=== PATIENT | male | born 1970 | race African-American/Black ===

== ENCOUNTER 2019-08-28 03:53 | Emergency (ER) | payer OTHER ==
[~2019-08-28] VITALS: Ht 182.9 cm; Wt 95.3 kg
[2019-08-28 04:10] VITALS: BP 156/79
--- NOTE | 2019-08-28 04:22 | NUR ---
PT CALLED FOR ROOM ASSIGNMEN, PT NOT IN WAITING ROOM. PT ELOPED.
== END 2019-08-28 04:22 | disposition left against medical advice (07) ==
LOC: ER 03:54
DX: Z53.21 Procedure and treatment not carried out due to patient leaving prior to being seen by health care provider (principal); R10.9 Unspecified abdominal pain

== ENCOUNTER 2019-09-03 01:30 | Emergency (ER) | payer OTHER ==
[~2019-09-03] VITALS: Ht 182.9 cm; Wt 94.8 kg
--- NOTE | 2019-09-03 01:43 | NUR ---
PT BIB EMS C/O ETOH, ABDOMINAL PAIN WITH NAUSEA TO ER BED 13 AWAITING MED EVAL
[2019-09-03] MEDS ORDERED: ONDANSETRON HCL/PF 4 MG/2 ML VIAL ONE (01:53)
[2019-09-03] MEDS ORDERED: ONDANSETRON HCL/PF 4 MG/2 ML VIAL IVP ONE (02:00)
--- NOTE | 2019-09-03 02:11 | NUR ---
Patient does not wish to proceed with medical care recommended by ( ). Patient given information related to possible complications, up to and including , which could occur as a result of leaving the hospital at this time. Patient verbalizes understanding of risks involved due to leaving against medical advice. Patient has signed AMA form.
[2019-09-03 02:12] VITALS: BP 142/86
--- NOTE | 2019-09-03 02:12 | NUR ---
PT AWAKE ALERT OERIENTED X4, AMBULATORY, AMA FORM SIGNED.
== END 2019-09-03 02:13 | disposition home or self-care (01) ==
LOC: ER 01:32
DX: R10.84 Generalized abdominal pain (principal); F32.9 Major depressive disorder, single episode, unspecified; F20.9 Schizophrenia, unspecified; F17.200 Nicotine dependence, unspecified, uncomplicated
CPT/HCPCS: J2405

== ENCOUNTER 2019-09-04 01:15 | Emergency (ER) | payer OTHER ==
[~2019-09-04] VITALS: Ht 182.9 cm; Wt 94.8 kg
[2019-09-04 01:20] VITALS: BP 135/72
--- NOTE | 2019-09-04 01:20 | NUR ---
PT MARTA FROM STREET C/O GENERALIZED ABDOMINAL PAIN X5 DAYS AGO. NAD NOTED. RESP EVEN AND UNLABORED. PT PROVIDED WITH URINAL. UNABLE TO URINATE AT THIS TIME. WILL CONTINUE TO MONITOR.
--- NOTE | 2019-09-04 01:50 | NUR ---
PT REFUSING ALL TREATMENT. MD AWARE.
--- NOTE | 2019-09-04 01:52 | NUR ---
PT REFUSING TO LEAVE. PT REFUSING TO SIGN AMA. CALLED SECURITY TO ESCORT PATIENT.
--- NOTE | 2019-09-04 01:56 | NUR ---
Patient does not wish to proceed with medical care recommended by Dr. ALCALA. Patient given information related to possible complications, up to and including , which could occur as a result of leaving the hospital at this time. Patient verbalizes understanding of risks involved due to leaving against medical advice. Patient has signed AMA form.
[2019-09-04] MEDS ORDERED: IV NS 0.9% 500 ML BAG IV ONE (02:00)
[2019-09-04] MEDS ORDERED: ONDANSETRON HCL/PF 4 MG/2 ML VIAL IVP ONE (02:00)
[2019-09-04] MEDS ORDERED: MORPHINE SULFATE INJ 2 MG/ML DISP.SYRIN IV ONE (02:00)
== END 2019-09-04 02:20 | disposition left against medical advice (07) ==
LOC: ER 01:16
DX: R10.84 Generalized abdominal pain (principal); F17.200 Nicotine dependence, unspecified, uncomplicated

== ENCOUNTER 2019-09-05 01:47 | Emergency (ER) | payer OTHER ==
[~2019-09-05] VITALS: Ht 185.4 cm; Wt 90.7 kg
--- NOTE | 2019-09-05 01:57 | NUR ---
PT [id number] FROM STORE C/C +SI, +PLAN TO RUN INTO TRAFFIC, -HI, VOLUNTARY, C/O ABD PAIN, +N/-V. PT BELONGINGS SEIZED AND PUT IN LOCKER WAY FROM PATIENT. SITTER AT BEDSIDE. SECURITY CALLED TO WAND PATIENT. PT IN HOSPITAL GOWN IN BED 13.
--- NOTE | 2019-09-05 02:00 | NUR ---
URINE COLLECTED AND SENT TO LAB
--- NOTE | 2019-09-05 02:09 | NUR ---
SECURITY AT BEDSIDE TO WAND PATIENT
--- NOTE | 2019-09-05 02:16 | NUR ---
PHLEB AT BEDSIDE FOR LAB DRAW
[2019-09-05 02:27] LABS: APPEARANCE,URINE Clear (CLEAR); BILIRUBIN,URINE Negative (NEGATIVE); BLOOD, URINE Negative Ery/uL (NEGATIVE); COLOR,URINE Yellow (YELLOW); KETONES,URINE Negative (NEGATIVE); LEUKOCYTE ESTERASE ,URINE Negative (NEGATIVE); NITRITE, URINE Negative (NEGATIVE); PROTEIN,URINE Negative (NEGATIVE); UGLUCOSE Negative (NEGATIVE); UROBILINOGEN,URINE 0.2 EU/dL (0.2)
[2019-09-05] MEDS ORDERED: OLANZAPINE 5 MG TABLET PO ONE (02:30)
[2019-09-05 02:58] LABS: ALBUMIN 3.9 g/dL (3.4-5.0); BILIRUBIN,DIRECT 0.1 mg/dL (0.0-0.2); BILIRUBIN,TOTAL 0.2 mg/dL (0.2-1.0); CALCIUM, SERUM 8.4 mg/dL (8.5-10.1); CREATININE 0.9 mg/dL (0.6-1.3); POTASSIUM 3.6 mmol/L (3.5-5.1); SALICYLATE 2.8 mg/dL (2.8-20.0); TOTAL PROTEIN, SERUM 7.5 g/dL (6.4-8.2)
[2019-09-05 03:00] LABS: BASOPHILS % (AUTO) 0.5 % (0.0-2.0); EOSINOPHILS % (AUTO) 1.5 % (0.0-6.0); HEMATOCRIT 41 % (39-51); HEMOGLOBIN 13.4 g/dL (13.5-17.5); LYMPHOCYTES % (AUTO) 31.9 % (20.0-44.0); MEAN CORPUSCULAR HGB CONC 33 g/dl (31.0-36.0); MEAN CORPUSCULAR VOLUME 96 fL (80-96); MONOCYTES # (AUTO) 0.7 /CMM (0.1-1.30); MONOCYTES % (AUTO) 10.4 % (2.0-12.0); NEUTROPHILS # (AUTO) 3.6 /CMM (1.8-8.9); NEUTROPHILS % (AUTO) 55.7 % (43.0-81.0); PLATELET COUNT (AUTO) 209 /CMM (150-450); RED BLOOD CELL COUNT(AUTO) 4.29 MIL/uL (4.5-6.0); WHITE BLOOD COUNT (AUTO) 6.4 K/uL (4.3-11.0)
[2019-09-05] MEDS ORDERED: OLANZAPINE 5 MG TABLET ONE (03:06)
[2019-09-05] MEDS ORDERED: HYDROCORTISONE 1% CREAM 28.35 GM TUBE TP ONE (05:17)
[2019-09-05] MEDS: HYDROCORTISONE 2.5% CREAM 28.4 GM TUBE TP SCH ×3 (05:20→17:00)
--- NOTE | 2019-09-05 07:10 | NUR ---
PATIENT ASLEEP BUT AROUSABLE VITALS TAKEN AND FILED NO AGITATION @ THIS TIME SITTER @ BEDSIDE CONTINUE TO MONITOR
--- NOTE | 2019-09-05 13:00 | NUR ---
PATIENT AWAKE ALERT NO AGITATION DENIES DISCOMFORT REQUESTING FOR FOOD
--- NOTE | 2019-09-05 14:04 | NUR ---
PATIENT AWAKE ALERT DENIES SI @ THIS TIME LUNCH TRAY SAFE TRAY ,NOTED HE DOES FOLLOW COMMAND AND MAKE HIS KNOWN NEEDS ,SITTER REMAIN STANDBY
--- NOTE | 2019-09-05 14:05 | NUR ---
BLOOD ALCOHOL LAB DRAW DONE
--- NOTE | 2019-09-05 15:09 | NUR ---
PROVIDED SNACK ORAL FLUIDS
--- NOTE | 2019-09-05 15:50 | NUR ---
ANGELICA IGLESIAS AT BEDSIDE FOR EVAL
--- NOTE | 2019-09-05 16:00 | NUR ---
Social service consult requested by Dr. Mack for homelessness and suicidal ideations with a plan to run into traffic. Pt. is a 49 year old male who brought in by ambulance from the store with complaints of suicidal ideation. MARCIA met with the pt. bedside. SW is familiar with the pt. from several ER visits for similar complaints. Upon arrival, pt. has alcohol level of over 350. MARCIA met with pt. bedside. Pt. is alert and oriented x 4. Pt. appears dirty and disheveled. Pt. is cooperative with SW. Pt. states he is homeless. Pt. admits to heavy alcohol consumption daily and drank a couple of bottles of gin yesterday. When asked how much he drinks daily, pt. stated, " it depends." Pt. denies drug use. Pt. smokes cigarettes daily. When asked how many per day, pt. states, " I don't know." Pt. states he is suicidal with a plan to run into traffic. Pt. is requesting voluntary psychiatric admission to [facility]. MARCIA contacted Obdulio at [facility] who informed they will have a bed for the pt. Obdulio took pt's information. MARCIA informed Obdulio, clinicals will be faxed in a few hours when pt's alcohol level is appropriate for psychiatric admission. MARCIA updated MONICA Zamora and Dr. Mack with aforementioned information.
--- NOTE | 2019-09-05 17:28 | NUR ---
[facility] CALLED SAYING THAT THE PATIENT CAN BE ADMITTED AFTER ALCOHOL SERUM LEVEL WILL BE <100. DR. BRIGGS SAID THAT THE PATIENT SHOULD HAVE AN ALCOHOL SERUM LEVEL AFTER 1830.
--- NOTE | 2019-09-05 17:29 | NUR ---
FAX INFORMATION TO [facility] [phone]
[2019-09-05] MEDS ORDERED: ACETAMINOPHEN ES 500 MG TABLET ONE (18:56)
[2019-09-05] MEDS ORDERED: ACETAMINOPHEN ES 500 MG TABLET PO ONE (19:00)
--- NOTE | 2019-09-05 19:25 | NUR ---
Assumed care of pt. pt sitting up in bed w/ resp even & unlabored, watching TV w/ no acute distress noted. Bed low to ground w/ siderails up for safety. Will continue to monitor. derian Barron remains at bedside.
--- NOTE | 2019-09-05 20:16 | NUR ---
FAX INFORMATION TO [facility] [phone]
--- NOTE | 2019-09-05 22:05 | NUR ---
PT REQUESTING PAIN MEDICATION FOR TOOTHACHE. DR. BRIGGS NOTIFIED.
[2019-09-05] MEDS ORDERED: IBUPROFEN 600 MG TABLET PO ONE ×2 (22:09→22:30)
--- NOTE | 2019-09-05 22:30 | NUR ---
PT MEDICATED ORDERED FOR PT REPORT HAVING RT UPPER TOOTHACHE. JUICE AND CRACKERS PROVIDED. PT SITTING UP IN BED EATING W/ NO ASPIRATION OF FOOD NOTED. WILL CONTINUE TO MONITOR.
[2019-09-05] MEDS ORDERED: LET SOLN TOPICAL 8 ML UDC TP ONE ×2 (23:11→23:30)
--- NOTE | 2019-09-05 23:11 | NUR ---
S/W ROEL AT [facility] INTAKE REFAX CLINICAL INFO ATT: [facility] [phone].
--- NOTE | 2019-09-05 23:33 | NUR ---
Pt calm and cooperative at this time w/ HOB elevated, resp even & unlabored, repositioning self in bed w/ no acute distress noted. Bed low to ground w/ siderails up for safety. Will continue to monitor. Awaiting placement at [facility].
[2019-09-06] MEDS ORDERED: LORAZEPAM INJ 2 MG/ML VIAL IV ONE
--- NOTE | 2019-09-06 00:15 | NUR ---
CEDRICK SEVILLA, INTAKE AT [facility], REPORT TO [phone] JASSO/MONTSERRAT AT [facility].
--- NOTE | 2019-09-06 00:20 | NUR ---
[facility] TRANSPORT ETA 90MINS-2HRS RESERVATION# [id number].
--- NOTE | 2019-09-06 00:25 | NUR ---
Pt given sandwich and juice, sitting up in bed eating w/ no aspiration of food noted.
--- NOTE | 2019-09-06 00:27 | NUR ---
REPORT GIVEN TO DARIEL HERNÁNDEZ AT [facility] FOR [facility].
--- NOTE | 2019-09-06 01:11 | NUR ---
[facility] CALLED FOR UPDATE ON ETA. S AMBULNZ [id number].
[2019-09-06 01:50] VITALS: BP 152/87
--- NOTE | 2019-09-06 02:16 | NUR ---
REPORT GIVEN TO ANSELMO HAY W/ AMBULNZ UNIT#[id number] FOR MARSHA, PT TRANSFER VIA BLS AMBULANCE IN STABLE CONDITION, RESP EVEN & UNLABORED, NO ACUTE DISTRESS NOTED.
== END 2019-09-06 02:28 ==
LOC: ER 01:49
DX: R45.851 Suicidal ideations (principal); R41.82 Altered mental status, unspecified; F10.10 Alcohol abuse, uncomplicated; F17.200 Nicotine dependence, unspecified, uncomplicated; I10 Essential (primary) hypertension; R45.1 Restlessness and agitation; F32.9 Major depressive disorder, single episode, unspecified; Y90.0 Blood alcohol level of less than 20 mg/100 ml; Z04.6 Encounter for general psychiatric examination, requested by authority
CPT/HCPCS: 36415; 80048; 80076; 80305; 80307 ×3; 80329; 81001; 85025; 99285; G0480; 81000-TC

== ENCOUNTER 2019-09-18 01:39 | Emergency (ER) | payer OTHER ==
[~2019-09-18] VITALS: Ht 182.9 cm; Wt 94.8 kg
--- NOTE | 2019-09-18 02:50 | NUR ---
PT BIBSELF C/C GENERALIZED ABDOMINAL PAIN AND VOMITING STARTED LAST NIGHT. PT AOX3. PT INDUCING VOMITTING. NAD NOTED. RESP EVEN AND UNLABORED. PT ON MONITOR IN BED 15. WILL CONTINUE TO MONITOR.
[2019-09-18] MEDS ORDERED: ONDANSETRON HCL/PF 4 MG/2 ML VIAL ONE (03:16)
[2019-09-18] MEDS ORDERED: FAMOTIDINE/PF INJ 20 MG/2 ML VIAL IV ONE ×2 (03:16→03:30)
[2019-09-18] MEDS ORDERED: ONDANSETRON HCL/PF 4 MG/2 ML VIAL IVP ONE (03:30)
[2019-09-18] MEDS ORDERED: IV NS 0.9% 1,000 ML BAG IV ONE (03:30)
--- NOTE | 2019-09-18 03:40 | NUR ---
PHLEB AT BEDSIDE FOR BLOOD DRAW
[2019-09-18 03:51] LABS: BASOPHILS # (AUTO) 0.1 /CMM (0.0-0.2); BASOPHILS % (AUTO) 1.6 % (0.0-2.0); EOSINOPHILS % (AUTO) 1.3 % (0.0-6.0); HEMATOCRIT 42 % (39-51); HEMOGLOBIN 13.8 g/dL (13.5-17.5); LYMPHOCYTES # (AUTO) 1.4 /CMM (0.8-4.8); LYMPHOCYTES % (AUTO) 30.8 % (20.0-44.0); MEAN CORPUSCULAR HGB CONC 33 g/dl (31.0-36.0); MEAN CORPUSCULAR VOLUME 95 fL (80-96); MONOCYTES # (AUTO) 0.3 /CMM (0.1-1.30); MONOCYTES % (AUTO) 6.8 % (2.0-12.0); NEUTROPHILS # (AUTO) 2.7 /CMM (1.8-8.9); NEUTROPHILS % (AUTO) 59.5 % (43.0-81.0); PLATELET COUNT (AUTO) 309 /CMM (150-450); RED BLOOD CELL COUNT(AUTO) 4.39 MIL/uL (4.5-6.0); WHITE BLOOD COUNT (AUTO) 4.5 K/uL (4.3-11.0)
[2019-09-18 04:00] LABS: MAGNESIUM 1.9 mg/dL (1.8-2.4)
[2019-09-18 04:02] LABS: ALANINE AMINOTRANSFERASE 42 U/L (12-78); ALBUMIN 4.1 g/dL (3.4-5.0); ALKALINE PHOSPHATASE 100 U/L (46-116); ASPARTATE AMINOTRANSFERASE 38 U/L (15-37); BILIRUBIN,DIRECT 0.1 mg/dL (0.0-0.2); BILIRUBIN,TOTAL 0.6 mg/dL (0.2-1.0); CALCIUM, SERUM 8.7 mg/dL (8.5-10.1); CARBON DIOXIDE 26 mmol/L (21-32); CHLORIDE 107 mmol/L (98-107); CREATININE 0.9 mg/dL (0.6-1.3); GLUCOSE 87 mg/dL (74-106); LIPASE 137 U/L (73-393); POTASSIUM 3.6 mmol/L (3.5-5.1); SODIUM SERUM 146 mmol/L (136-145); TOTAL PROTEIN, SERUM 8.2 g/dL (6.4-8.2); UREA NITROGEN, BLOOD 12 mg/dL (7-18)
--- NOTE | 2019-09-18 05:52 | NUR ---
U/S COMPLETED. PT TOLERATED WELL.
[2019-09-18] MEDS ORDERED: MAG HYDROX/AL HYDROX/SIMETH 30 ML UDC PO ONE ×2 (06:00→10:30)
[2019-09-18] MEDS ORDERED: LIDOCAINE VISCOUS 2% UD 15 ML UDC MM ONE (06:00)
[2019-09-18] MEDS ORDERED: MAG HYDROX/AL HYDROX/SIMETH 30 ML UDC ONE ×2 (06:12→10:16)
[2019-09-18] MEDS ORDERED: LIDOCAINE VISCOUS 2% UD 15 ML UDC ONE (06:12)
--- NOTE | 2019-09-18 06:18 | NUR ---
PT ABLE TO TOLERATE PO MEDS
--- NOTE | 2019-09-18 08:12 | NUR ---
patient verbalized that he is suicidal plan to run into traffic. Informed MD and made aware. Zoraida social sciences department chair on site for eval.
--- NOTE | 2019-09-18 08:22 | NUR ---
Social service consult requested by Dr. Mack for suicidal ideation with a plan. Pt. is a 49 year old male who came to [facility] complaining of nausea. MARCIA met with the pt. bedside. MARCIA is very familiar with the pt. from numerous ED visits, the last visit was on 09/04/19 for suicidal ideations with a plan. Pt. is alert and oriented x 4. Pt. appears dirty and disheveled. Pt. is an alcoholic and comes to ED with alcohol withdrawal symptoms. Pt. informed SW he is suicidal with a plan to run into traffic. Pt. last voluntary psychiatric hospitalization was on 09/05/19 at [facility]. Pt. is homeless. Pt. admits to heavy alcohol consumption daily and drinks couple of bottles of gin. MARCIA encouraged pt. to go to an alcohol treatment program and offerd him resources, however pt. declined. Pt. is seeking voluntary psychiatric admission to [facility]. MARCIA contacted Obdulio at [facility] who informed MARCIA they will have a bed for the pt. Obd[facility]io took pt's information. MARCIA faxed clinical referral packet to .
[2019-09-18] MEDS ORDERED: ONDANSETRON 4 MG TAB.RAPDIS ONE (10:17)
--- NOTE | 2019-09-18 10:24 | NUR ---
MARCIA received a call from Obdulio at [facility] confirming they will have a bed for the pt. at [place] or [place] location, they are awaiting discharges at this time. MARCIA updated DARIEL Magdaleno in ED.
[2019-09-18] MEDS ORDERED: ONDANSETRON 4 MG TAB.RAPDIS PO ONE (10:30)
[2019-09-18] MEDS ORDERED: METOCLOPRAMIDE HCL 10 MG/2 ML VIAL IM ONE (11:00)
[2019-09-18] MEDS ORDERED: HALOPERIDOL LACTATE INJ 5 MG/ML VIAL ONE ×2 (12:22→12:36)
[2019-09-18] MEDS ORDERED: HALOPERIDOL LACTATE INJ 5 MG/ML VIAL IM ONE (12:30)
--- NOTE | 2019-09-18 13:51 | NUR ---
MARCIA received a call from Vimal in intake at [facility] requesting an updated alcohol level since the previous level was too high. . MARCIA printed out the recent alcohol level and faxed it to .
--- NOTE | 2019-09-18 13:56 | NUR ---
FAXED NEW TOX LABS TO [facility]
[2019-09-18 13:57] VITALS: BP 127/87
--- NOTE | 2019-09-18 14:21 | NUR ---
MARCIA received a call from Vimal in intake. Pt. has been accepted under Dr. Linder/Dr. Aden at [facility]. Report needs to be called in to . MARCIA updated MONICA Wooten in ED.
--- NOTE | 2019-09-18 14:37 | NUR ---
CALLED [id number] FOR TRANSPORT ETA 0060 REF #[id number]
--- NOTE | 2019-09-18 15:28 | NUR ---
Patient picked up by ems in stable condition. Written and verbal after care instructions given. Patient verbalizes understanding of instruction.
== END 2019-09-18 15:32 ==
LOC: ER 01:40
DX: R10.10 Upper abdominal pain, unspecified (principal); R11.2 Nausea with vomiting, unspecified; F10.10 Alcohol abuse, uncomplicated; R94.31 Abnormal electrocardiogram [ECG] [EKG]; I45.10 Unspecified right bundle-branch block; I44.4 Left anterior fascicular block; F17.200 Nicotine dependence, unspecified, uncomplicated; Y90.6 Blood alcohol level of 120-199 mg/100 ml
CPT/HCPCS: 36415; 71045; 76705; 80048; 80076; 80307 ×2; 83690; 83735; 84484 ×2; 85025; 93005 ×2; 96361; 96372 ×2; 96374; 96375; 99285; J1630; J2405; J3490; J7030; Q0162; G0480

== ENCOUNTER 2019-09-18 19:17 | Emergency (ER) | payer OTHER ==
[~2019-09-18] VITALS: Ht 184.2 cm; Wt 94.8 kg
[2019-09-18] MEDS ORDERED: ONDANSETRON HCL/PF 4 MG/2 ML VIAL ONE (19:49)
[2019-09-18] MEDS ORDERED: MORPHINE SULFATE INJ 4 MG/ML DISP.SYRIN ONE (19:49)
[2019-09-18] MEDS ORDERED: IV NS 0.9% 1,000 ML BAG IV ONE (20:00)
[2019-09-18] MEDS ORDERED: MORPHINE SULFATE INJ 2 MG/ML DISP.SYRIN IV ONE (20:00)
[2019-09-18] MEDS ORDERED: ONDANSETRON HCL/PF 4 MG/2 ML VIAL IVP ONE (20:00)
--- NOTE | 2019-09-18 20:00 | NUR ---
GLORIA FROM [facility]. TO ER BED 11. AAOX4. NO RESP DISTRESS NOTED, BREATHING EVEN AND UNLABORED. C/O NAUSEA, VOMMITING, GEN ABDOMINAL PAIN AND CP. PT WAS HERE LAST NIGHT AT THE ER FOR ADOMINAL PAIN AND NAUSEA. PT IS REPORTING THAT THE ABDOMINAL PAIN DID NOT GO AWAY, STILL NAUSEOUS AND VOMMITING BUT NO EPISODE WHILE IN ER. PT REPORTS CP PAIN IN THE MID CHEST AREA SHARP NON RADIATING /10. NO SOB NOTED. KARY MONTALVO AT BEDSIDE FOR EVAL. ORDERS RECEIVED, NOTED AND CARRIED OUT. IV LINE OBTAINED ON R FOOT W/ 20G.
[2019-09-18 21:09] LABS: BASOPHILS # (AUTO) 0.1 /CMM (0.0-0.2); BASOPHILS % (AUTO) 1.2 % (0.0-2.0); EOSINOPHILS % (AUTO) 0.4 % (0.0-6.0); HEMATOCRIT 39 % (39-51); HEMOGLOBIN 12.7 g/dL (13.5-17.5); LYMPHOCYTES % (AUTO) 19.8 % (20.0-44.0); MEAN CORPUSCULAR HGB CONC 33 g/dl (31.0-36.0); MEAN CORPUSCULAR VOLUME 96 fL (80-96); MONOCYTES # (AUTO) 0.5 /CMM (0.1-1.30); MONOCYTES % (AUTO) 10.2 % (2.0-12.0); NEUTROPHILS # (AUTO) 3.5 /CMM (1.8-8.9); NEUTROPHILS % (AUTO) 68.4 % (43.0-81.0); PLATELET COUNT (AUTO) 256 /CMM (150-450); RED BLOOD CELL COUNT(AUTO) 4.04 MIL/uL (4.5-6.0); WHITE BLOOD COUNT (AUTO) 5.1 K/uL (4.3-11.0)
--- NOTE | 2019-09-18 21:18 | NUR ---
URINE SENT TO LAB
[2019-09-18 21:26] LABS: CALCIUM, SERUM 8.3 mg/dL (8.5-10.1); CARBON DIOXIDE 27 mmol/L (21-32); CHLORIDE 104 mmol/L (98-107); CREATININE 0.8 mg/dL (0.6-1.3); GLUCOSE 82 mg/dL (74-106); POTASSIUM 3.5 mmol/L (3.5-5.1); SODIUM SERUM 140 mmol/L (136-145); UREA NITROGEN, BLOOD 12 mg/dL (7-18)
[2019-09-18 21:30] LABS: ALANINE AMINOTRANSFERASE 33 U/L (12-78); ALBUMIN 3.7 g/dL (3.4-5.0); ALKALINE PHOSPHATASE 84 U/L (46-116); ASPARTATE AMINOTRANSFERASE 31 U/L (15-37); BILIRUBIN,DIRECT 0.2 mg/dL (0.0-0.2); TOTAL PROTEIN, SERUM 7.2 g/dL (6.4-8.2)
[2019-09-18 21:30] LABS: ALCOHOL, BLOOD 1 mg/dL (0-0); LIPASE 982 U/L (73-393)
[2019-09-18 22:09] LABS: APPEARANCE,URINE SLIGHTLY HAZY (CLEAR); BILIRUBIN,URINE SMALL (NEGATIVE); BLOOD, URINE Negative Ery/uL (NEGATIVE); COLOR,URINE Yellow (YELLOW); KETONES,URINE 15 (NEGATIVE); LEUKOCYTE ESTERASE ,URINE Negative (NEGATIVE); NITRITE, URINE Negative (NEGATIVE); PH,URINE 8.5 (5.0-8.0); PROTEIN,URINE 100 mg/dl (NEGATIVE); UGLUCOSE Negative (NEGATIVE); UROBILINOGEN,URINE 0.2 EU/dL (0.2)
[2019-09-18 22:10] LABS: BACTERIA,URINE Few /HPF (None Seen); SQUAMOUS EPITHELIAL CELL,UR Few /HPF (None Seen)
[2019-09-18 22:11] LABS: RBC,URINE 0-2 /HPF (0-2); WBC,URINE 0-2 /HPF (0-3)
--- NOTE | 2019-09-18 23:09 | NUR ---
ANGEL W/ MILANA, DRAFTER AUTOMOTIVE DESIGN LAYOUT FOR INFORMATION ABOUT PT.
[2019-09-18] MEDS ORDERED: hydrALAZINE HCL IV 20 MG VIAL IV ONE (23:30)
--- NOTE | 2019-09-18 23:48 | NUR ---
SPOKE W/ MILANA AGAIN REGARDING PT TRANSFER. PT GOING TO [facility]STEAD OF [facility]. CONTACT ROHITH NYE [phone]
--- NOTE | 2019-09-18 23:48 | NUR ---
Note domonique in EDM - 09/18/19 at 2349 by FACUNDO ANGEL CORTÉS AGAIN REGARDING PT TRANSFER. PT GOING TO [facility]STE[facility] OF [facility]. CONTACT ROHITH NYE [phone]
[2019-09-18] MEDS ORDERED: hydrALAZINE HCL IV 20 MG VIAL ONE (23:52)
--- NOTE | 2019-09-19 00:40 | NUR ---
TRANSFER INFO: PT WILL GO TO [facility], DIRECT ADMIT TO ROOM 211-A RN FOR REPORT [phone], ETA TO FOLLOW
--- NOTE | 2019-09-19 01:38 | NUR ---
PER BETSY BULL RIVETER, TRANSPORTATION NOT AVAILABLE UNTIL [phone]
--- NOTE | 2019-09-19 06:10 | NUR ---
AMBULNElma CALLED, NEW ETA [phone]
--- NOTE | 2019-09-19 06:38 | NUR ---
REPORT GIVEN TO DARIEL MATHIAS FOR [facility] AT [facility]. BLOOD DONOR UNIT ASSISTANT AT 7:45AM
--- NOTE | 2019-09-19 06:41 | NUR ---
Note domonique in EDM - 09/19/19 at 0653 by KIANA PT HAD A SECOND BM W/ NOTED BLOOD IN THE STOOL. MADE AWARE. CALLED BLOOD BANK FOR BLOOD STATUS, BLOOD WILL BE READY IN 20 MINS
--- NOTE | 2019-09-19 07:50 | NUR ---
Note domonique in EDM - 09/19/19 at 0752 by KIANA PT TRANSPORTED BY RN AND EMT AT BEDSIDE PER [facility] [employer]. NAD NOTED DURING TRANSPORT.
[2019-09-19 09:03] VITALS: BP 165/75
--- NOTE | 2019-09-19 09:04 | NUR ---
PATIENT A/OX4, BREATHING EVEN AND UNLABORED, NO SOB NOTED, DENIES PAIN AT THIS TIME. NEEDS ATTENDED. REPORT GIVEN TO SPORT INTERN. WILL BE TRANSFERRED TO [facility].
== END 2019-09-19 09:06 | disposition short-term general hospital (02) ==
LOC: ER 19:42
DX: R07.89 Other chest pain (principal); R10.84 Generalized abdominal pain; K85.90 Acute pancreatitis without necrosis or infection, unspecified; R11.2 Nausea with vomiting, unspecified; F10.10 Alcohol abuse, uncomplicated; F17.200 Nicotine dependence, unspecified, uncomplicated; I45.10 Unspecified right bundle-branch block; Y90.0 Blood alcohol level of less than 20 mg/100 ml
CPT/HCPCS: 36415; 71045; 74176; 80048; 80076; 80305; 80307; 81001; 83690; 84484; 85025; 93005; 96361; 96374; 96375; 99285; J0360; J2270; J2405; J7030; 81000-TC; 87081-TC; G0480

== ENCOUNTER 2019-09-27 21:33 | Emergency (ER) | payer OTHER ==
[~2019-09-27] VITALS: Ht 190.5 cm; Wt 95.3 kg
--- NOTE | 2019-09-27 21:40 | NUR ---
PT PERIRA FROM [facility] FOR ALCOHOL INTOXICATION, FOUND SLEEPING ON THE FLOOR. STRONG SMELL OF ALCOHOL ON ARRIVAL. PT AWAKE, APPEARS INTOXICATED. INAPPRORIATE RESPONSES, APPEARS DISSHEVELED. VITAL SIGNS STABLE. RESPIRATIONS EVEN AND UNLABORED. SKIN INTACT. NO ACUTE DISTRESS NOTED AT THIS TIME. WILL CONTINUE TO MONITOR
--- NOTE | 2019-09-27 22:15 | NUR ---
MD AT BEDSIDE FOR EVALUATION
--- NOTE | 2019-09-27 22:30 | NUR ---
PT BROUGHT BY RADIOLOGY TO CT [facility]
--- NOTE | 2019-09-28 00:17 | NUR ---
PT RESTING COMFORTABLY IN BED. EASILY AROUSABLE. VITAL SIGNS STABLE. NO ACUTE DISTRESS NOTED AT THIS TIME
--- NOTE | 2019-09-28 03:27 | NUR ---
Patient is resting comfortably in bed with eyes closed. Easily aroused. VSS
--- NOTE | 2019-09-28 05:30 | NUR ---
Patient given written and verbal discharge instructions. Patient verbalizes understanding of instructions. Patient is ambulatory with steady gait. Refuses offer of snf placement. Patient given list of available shelters in surrounding area.Pt ambulatory with a steady gait
[2019-09-28 05:56] VITALS: BP 137/84
== END 2019-09-28 05:56 | disposition home or self-care (01) ==
LOC: ER 21:33
DX: F10.129 Alcohol abuse with intoxication, unspecified (principal); F17.200 Nicotine dependence, unspecified, uncomplicated; Y90.9 Presence of alcohol in blood, level not specified
CPT/HCPCS: 70450-TC

== ENCOUNTER 2019-10-02 10:30 | Emergency (ER) | payer OTHER ==
[~2019-10-02] VITALS: Ht 185.4 cm; Wt 100.7 kg
--- NOTE | 2019-10-02 10:32 | NUR ---
PT BIBRA39, HOMELESS, PICKED UP ON THE STREET, C/O NAUSEA/VOMITING AND DEPRESSION, +SI, "I WANT TO RUN INTO TRAFFIC" PT IS AAOX3, NOT IN RESPIRATORY DISTRESS, HOOKED TO MONITOR, KEPT RESTED AND COMFORTABLE, WILL CONTINUE TO MONITOR.
--- NOTE | 2019-10-02 10:35 | NUR ---
SEEN AND EXAMINED BY .
--- NOTE | 2019-10-02 10:41 | NUR ---
Called [facility] and spoke to Adrian (intake) will fax paper works once medically clear [phone]
[2019-10-02 10:55] LABS: BASOPHILS % (AUTO) 0.3 % (0.0-2.0); EOSINOPHILS % (AUTO) 0.1 % (0.0-6.0); HEMATOCRIT 41 % (39-51); HEMOGLOBIN 13.3 g/dL (13.5-17.5); LYMPHOCYTES # (AUTO) 0.9 /CMM (0.8-4.8); LYMPHOCYTES % (AUTO) 5.8 % (20.0-44.0); MEAN CORPUSCULAR HGB CONC 32 g/dl (31.0-36.0); MEAN CORPUSCULAR VOLUME 96 fL (80-96); MONOCYTES # (AUTO) 0.8 /CMM (0.1-1.30); MONOCYTES % (AUTO) 4.9 % (2.0-12.0); NEUTROPHILS # (AUTO) 13.9 /CMM (1.8-8.9); NEUTROPHILS % (AUTO) 88.9 % (43.0-81.0); PLATELET COUNT (AUTO) 232 /CMM (150-450); RED BLOOD CELL COUNT(AUTO) 4.26 MIL/uL (4.5-6.0); WHITE BLOOD COUNT (AUTO) 15.6 K/uL (4.3-11.0)
[2019-10-02] MEDS ORDERED: SERTRALINE HCL 50 MG TABLET PO SCH (11:00)
[2019-10-02] MEDS ORDERED: QUETIAPINE FUMARATE 100 MG TABLET PO SCH ×2 (11:00→21:00)
[2019-10-02 11:13] LABS: ALBUMIN 4.3 g/dL (3.4-5.0); BILIRUBIN,DIRECT 0.2 mg/dL (0.0-0.2); BILIRUBIN,TOTAL 0.9 mg/dL (0.2-1.0); CALCIUM, SERUM 8.9 mg/dL (8.5-10.1); CREATININE 0.9 mg/dL (0.6-1.3); POTASSIUM 3.8 mmol/L (3.5-5.1); SALICYLATE 1.8 mg/dL (2.8-20.0); TOTAL PROTEIN, SERUM 8.1 g/dL (6.4-8.2)
[2019-10-02 11:31] LABS: LYMPHOCYTES % (MANUAL) 5 % (16-48); MONOCYTES % (MANUAL) 5 % (0-11.0); NEUTROPHILS % (MANUAL) 90 (42-76)
--- NOTE | 2019-10-02 13:00 | NUR ---
OFFERED A URINAL, PATIENT UNABLE TO PROVIDE URINE SAMPLE AT THIS TIME.
--- NOTE | 2019-10-02 16:01 | NUR ---
Patient is resting comfortably in bed with eyes closed. Easily aroused. VSS
[2019-10-02] MEDS ORDERED: ONDANSETRON 4 MG TAB.RAPDIS ONE (17:07)
[2019-10-02 17:15] LABS: APPEARANCE,URINE Clear (CLEAR); BILIRUBIN,URINE Negative (NEGATIVE); BLOOD, URINE Moderate Ery/uL (NEGATIVE); COLOR,URINE Yellow (YELLOW); KETONES,URINE 80 (NEGATIVE); LEUKOCYTE ESTERASE ,URINE Negative (NEGATIVE); NITRITE, URINE Negative (NEGATIVE); PH,URINE 5.5 (5.0-8.0); PROTEIN,URINE Negative (NEGATIVE); UGLUCOSE Negative (NEGATIVE); UROBILINOGEN,URINE 0.2 EU/dL (0.2)
[2019-10-02 17:30] LABS: BACTERIA,URINE Rare /HPF (None Seen); SQUAMOUS EPITHELIAL CELL,UR Few /HPF (None Seen); WBC,URINE 0-2 /HPF (0-3)
[2019-10-02] MEDS ORDERED: ONDANSETRON 4 MG TAB.RAPDIS SL ONE (17:30)
--- NOTE | 2019-10-02 17:44 | NUR ---
Patient is resting comfortably in bed with eyes closed. Easily aroused. VSS
--- NOTE | 2019-10-02 18:20 | NUR ---
Sander youssef in ED - 10/02/19 at 1850 by JUAQUIN Patient discharged to home in stable condition. Written and verbal after care instructions given. Patient verbalizes understanding of instruction.
--- NOTE | 2019-10-02 18:50 | NUR ---
Patient is resting comfortably in bed with eyes closed. Easily aroused. VSS
--- NOTE | 2019-10-02 19:30 | NUR ---
FAXED UPDATED LABS TO [facility] MARI RN SAYS WILL REVIEW UPON RECEIPT
--- NOTE | 2019-10-02 20:11 | NUR ---
PER TRACY NO UPDATE DUE TO CHANGE OF SHIFT, WILL CALL BACK
--- NOTE | 2019-10-02 20:20 | NUR ---
Spoke w/ patient, he says that he has thoughts of harming himself "running into cars"
--- NOTE | 2019-10-02 22:08 | NUR ---
PT ACCEPTED TO [facility] BY DR AMARAL. # FOR REPORT [phone]
[2019-10-02] MEDS ORDERED: QUETIAPINE FUMARATE 25 MG TABLET ONE (22:29)
--- NOTE | 2019-10-02 22:32 | NUR ---
PT REC'D MEDICATION ORDERED.
--- NOTE | 2019-10-02 22:33 | NUR ---
[id number] WILL CALL BACK WITH [facility] FOR BLS TRANSPORT
[2019-10-02 23:08] VITALS: BP 140/88
--- NOTE | 2019-10-02 23:09 | NUR ---
REPORT GIVEN TO DEVAUGHN VIEIRA FOR CONTINUATION OF CARE.
== END 2019-10-02 23:10 ==
LOC: ER 10:33
DX: R45.851 Suicidal ideations (principal); F10.129 Alcohol abuse with intoxication, unspecified; R11.2 Nausea with vomiting, unspecified; F17.200 Nicotine dependence, unspecified, uncomplicated; Y90.0 Blood alcohol level of less than 20 mg/100 ml; Z59.0 Homelessness
CPT/HCPCS: 36415; 80048; 80076; 80305; 80307 ×2; 80329; 81001; 85025; 99285; G0480; Q0162; 81000-TC

== ENCOUNTER 2019-12-16 00:17 | Emergency (ER) | payer OTHER ==
--- NOTE | 2019-12-16 01:03 | NUR ---
CALLED TO TRIAGE NO ANSWER.
--- NOTE | 2019-12-16 01:16 | NUR ---
CALLED TO TRIAGE NO ANSWER.
--- NOTE | 2019-12-16 03:39 | NUR ---
CALLED TO TRIAGE NO ANSWER.
== END 2019-12-16 03:40 | disposition home or self-care (01) ==
LOC: ER 00:18
DX: Z53.21 Procedure and treatment not carried out due to patient leaving prior to being seen by health care provider (principal)

== ENCOUNTER 2020-01-29 20:44 | Emergency (ER) | payer OTHER ==
[~2020-01-29] VITALS: Ht 175.3 cm; Wt 81.6 kg
[2020-01-29 20:44] VITALS: BP 159/86
--- NOTE | 2020-01-29 22:24 | NUR ---
CALLED FOR TRIAGE. NO ANSWER
--- NOTE | 2020-01-29 22:30 | NUR ---
PT NO IN WAITING ROOM FOR ROOM ASSIGNMENT.
== END 2020-01-29 23:00 | disposition home or self-care (01) ==
LOC: ER 20:45
DX: R10.9 Unspecified abdominal pain (principal); Z53.21 Procedure and treatment not carried out due to patient leaving prior to being seen by health care provider

== ENCOUNTER 2020-01-30 01:06 | Emergency (ER) | payer OTHER ==
[~2020-01-30] VITALS: Ht 167.6 cm; Wt 63.5 kg
--- NOTE | 2020-01-30 01:15 | NUR ---
PT BIBRA 878 FOR C/O NAUSEA. PALCED IN BED 15. PLACED ON MONITOR AND PULSE OX. RR EVEN AND UNLABORED, NO SKIN ISSUES NOTED. WILL CONTINUE TO MONITOR.
--- NOTE | 2020-01-30 03:20 | NUR ---
Patient is resting comfortably in bed. Easily aroused. VSS.
--- NOTE | 2020-01-30 05:19 | NUR ---
PT DISCHARGED. PT REFUSED TO SIGN DISCHARGE PAPER AND HOMELESS DISCHARGE.
[2020-01-30 05:21] VITALS: BP 132/85
== END 2020-01-30 05:24 | disposition home or self-care (01) ==
LOC: ER 01:07
DX: F10.129 Alcohol abuse with intoxication, unspecified (principal); Y90.9 Presence of alcohol in blood, level not specified

== ENCOUNTER 2020-02-03 22:23 | Emergency (ER) | payer OTHER ==
--- NOTE | 2020-02-03 22:35 | NUR ---
Pt name called three times in waiting room area, no response.
--- NOTE | 2020-02-03 23:00 | NUR ---
Pts name called three times in waiting room area, no answer.
--- NOTE | 2020-02-04 00:12 | NUR ---
CALLED PT TO BE TRIAGED, SLEEPING IN WAITING ROOM. REFUSING TO WAKE UP.
== END 2020-02-04 00:13 | disposition left against medical advice (07) ==
LOC: ER 22:26
DX: Z53.21 Procedure and treatment not carried out due to patient leaving prior to being seen by health care provider (principal)

== ENCOUNTER 2020-09-11 19:32 | Emergency (ER) | payer OTHER ==
[~2020-09-11] VITALS: Ht 175.3 cm; Wt 81.6 kg
--- NOTE | 2020-09-11 19:56 | NUR ---
PT BIBRA FROM THE STREET LYING ON GROUND NEAR THE TRAINTRACKS. DENIES SI/HI. A/OX3. RESP EVEN UNLABORED. UNSTEADY GAIT.
--- NOTE | 2020-09-11 20:37 | NUR ---
PT AMBULATED WITH STEADY GAIT. PT REQUESTING TO LEAVE. NOTIFIED DR GOMEZ.
--- NOTE | 2020-09-11 20:53 | NUR ---
Patient discharged in stable condition. Written and verbal after care instructions given. Patient verbalizes understanding of instruction. PT SIGNED HOMELESS DISCHARGE, REFUSES RESOURCES.
[2020-09-11 20:54] VITALS: BP 142/60
== END 2020-09-11 20:55 | disposition home or self-care (01) ==
LOC: ER 19:36
DX: F10.129 Alcohol abuse with intoxication, unspecified (principal); F32.9 Major depressive disorder, single episode, unspecified; F17.200 Nicotine dependence, unspecified, uncomplicated; Y90.9 Presence of alcohol in blood, level not specified

== ENCOUNTER 2020-09-12 19:13 | Emergency (ER) | payer OTHER ==
[~2020-09-12] VITALS: Ht 175.3 cm; Wt 81.6 kg
--- NOTE | 2020-09-12 19:20 | NUR ---
PT MARTA FROM STREET FOR ALCOHOL INTOXICATION. PT AAOX4. RESPIRATIONS EVEN AND UNLABORED. VITAL SIGNS STABLE. NO ACUTE DISTRESS NOTED AT THIS TIME. PLACED ON MONITOR WILL CONTINUE TO MONITOR
[2020-09-12] MEDS ORDERED: IV NS 0.9% 1,000 ML BAG IV ONE (19:30)
[2020-09-12] MEDS ORDERED: ONDANSETRON HCL/PF 4 MG/2 ML VIAL IVP ONE (19:30)
[2020-09-12] MEDS ORDERED: KETOROLAC TROMETHAMINE INJ 30 MG/ML VIAL IV ONE (19:30)
[2020-09-12] MEDS ORDERED: KETOROLAC TROMETHAMINE INJ 30 MG/ML VIAL ONE (19:37)
[2020-09-12] MEDS ORDERED: ONDANSETRON HCL/PF 4 MG/2 ML VIAL ONE (19:37)
--- NOTE | 2020-09-12 19:39 | NUR ---
PATIENT REFUSED TO HAVE BLOOD DRAWN, REFUSES MEDICATION. PATIENT STATES, "I WANNA GO" "I DON'T GIVE A FUCK WHAT ABOUT WHAT YOU NEED, BUT I WANNA LEAVE." SELVIN PRESTON NOTIFIED.
--- NOTE | 2020-09-12 19:42 | NUR ---
PT AAOX4. AMBULATORY WITH STEADY GAIT. PT CONSTANTLY GETTING OUT OF BED AND GOING INTO OTHER PATIENT'S ROOMS. SPEAKING INAPPROPRIATELY TO PATIENTS AND STAFF. SITTER AT BEDSIDE ASSISTING PATIENT TO STAY IN BED, PATIENT REFUSING.
--- NOTE | 2020-09-12 19:52 | NUR ---
PT AMBULATED TO THE RESTROOM. PA WAS AT BEDSIDE SPEAKING TO THE PT REGARDING HIM HAVING THOUGHTS OF HARDMING HIMSELF. PT STATED "I WAS JUST DRUNK, FUCK THAT, I WOULD NEVER DO THAT." PT THEN ASKED TO BE DISCHARGED. VSS. PT AAOX4.
--- NOTE | 2020-09-12 19:59 | NUR ---
Patient discharged to home in stable condition. Written and verbal after care instructions given. Patient verbalizes understanding of instruction. Pt ambulated with steady gait. vss.
[2020-09-12 20:11] VITALS: BP 133/65
== END 2020-09-12 20:11 | disposition home or self-care (01) ==
LOC: ER 19:14
DX: F10.129 Alcohol abuse with intoxication, unspecified (principal); Y90.9 Presence of alcohol in blood, level not specified
CPT/HCPCS: 99283; J1885; J2405

== ENCOUNTER 2020-09-12 23:58 | Emergency (ER) | payer OTHER ==
[~2020-09-12] VITALS: Ht 175.3 cm; Wt 81.6 kg
[2020-09-13 00:05] VITALS: BP 137/82
[2020-09-13] MEDS ORDERED: ACETAMINOPHEN 325 MG TABLET PO ONE (01:00)
--- NOTE | 2020-09-13 01:50 | NUR ---
PT REFUSING CARE. STATED HE WOULD LIKE TO "SLEEP IT OFF."
--- NOTE | 2020-09-13 01:58 | NUR ---
Patient discharged to home in stable condition. Written and verbal after care instructions given. Patient verbalizes understanding of instruction. Pt threw away the dischage paper work. Pt also refused to sign Homeless waiver.
== END 2020-09-13 01:59 | disposition home or self-care (01) ==
LOC: ER 23:58
DX: R10.9 Unspecified abdominal pain (principal); Z02.89 Encounter for other administrative examinations

== ENCOUNTER 2020-09-13 21:30 | Emergency (ER) | payer OTHER ==
[~2020-09-13] VITALS: Ht 175.3 cm; Wt 81.6 kg
[2020-09-13 21:30] VITALS: BP 141/96
--- NOTE | 2020-09-13 21:55 | NUR ---
PT WAS IN BATHROOM TRYING TO GIVE URINE SAMPLE, PATIENT THEN ELOPED, DID NOT WANT TO SEE PROVIDER. DR. FLORES AWARE.
== END 2020-09-13 21:56 | disposition left against medical advice (07) ==
LOC: ER 21:31
DX: R10.9 Unspecified abdominal pain (principal); Z53.21 Procedure and treatment not carried out due to patient leaving prior to being seen by health care provider

== ENCOUNTER 2020-11-03 03:11 | Emergency (ER) | payer OTHER ==
[~2020-11-03] VITALS: Ht 175.3 cm; Wt 81.6 kg
--- NOTE | 2020-11-03 03:19 | NUR ---
BIBRA C/O ABDOMINAL PAIN X5 DAYS. (+) ETOH. PT PLACED IN BED 2 ON MONITOR AND PULSE OX. VSS.
[2020-11-03 04:03] LABS: CALCIUM, SERUM 8.1 mg/dL (8.5-10.1); CREATININE 0.8 mg/dL (0.6-1.3); POTASSIUM 3.4 mmol/L (3.5-5.1)
[2020-11-03 04:06] LABS: BASOPHILS # (AUTO) 0.1 /CMM (0.0-0.2); BASOPHILS % (AUTO) 1.4 % (0.0-2.0); EOSINOPHILS % (AUTO) 0.3 % (0.0-6.0); HEMATOCRIT 36 % (39-51); HEMOGLOBIN 11.7 g/dL (13.5-17.5); LYMPHOCYTES # (AUTO) 1.4 /CMM (0.8-4.8); LYMPHOCYTES % (AUTO) 34.8 % (20.0-44.0); MEAN CORPUSCULAR HGB CONC 32 g/dl (31.0-36.0); MEAN CORPUSCULAR VOLUME 92 fL (80-96); MONOCYTES # (AUTO) 0.3 /CMM (0.1-1.30); MONOCYTES % (AUTO) 7.9 % (2.0-12.0); NEUTROPHILS # (AUTO) 2.2 /CMM (1.8-8.9); NEUTROPHILS % (AUTO) 55.6 % (43.0-81.0); PLATELET COUNT (AUTO) 273 /CMM (150-450); RED BLOOD CELL COUNT(AUTO) 3.94 MIL/uL (4.5-6.0); WHITE BLOOD COUNT (AUTO) 3.9 K/uL (4.3-11.0)
[2020-11-03 04:11] LABS: ALBUMIN 3.8 g/dL (3.4-5.0); BILIRUBIN,DIRECT 0.1 mg/dL (0.0-0.2); BILIRUBIN,TOTAL 0.3 mg/dL (0.2-1.0); TOTAL PROTEIN, SERUM 7.5 g/dL (6.4-8.2)
[2020-11-03 05:45] VITALS: BP 142/86
--- NOTE | 2020-11-03 05:45 | NUR ---
Patient discharged to home in stable condition. Written and verbal after care instructions given. Patient verbalizes understanding of instruction. Pt signed homeless waiver. vss.
== END 2020-11-03 05:46 | disposition home or self-care (01) ==
LOC: ER 03:11
DX: F10.129 Alcohol abuse with intoxication, unspecified (principal); I10 Essential (primary) hypertension; E66.9 Obesity, unspecified; Y90.8 Blood alcohol level of 240 mg/100 ml or more; Z68.26 Body mass index [BMI] 26.0-26.9, adult
CPT/HCPCS: 36415; 80048-TC; 80076-TC; 85025-TC; G0480

== ENCOUNTER 2020-11-05 20:12 | Emergency (ER) | payer OTHER ==
[~2020-11-05] VITALS: Ht 182.9 cm; Wt 99.8 kg
[2020-11-05 20:17] VITALS: BP 150/104
--- NOTE | 2020-11-05 22:00 | NUR ---
PT BIBRA 839 FOR ABD PAIN AND WEAKNESS X 2 DAYS. PT ADMITS TO DRINKING ALCOHOL TODAY. PT AAOX4, RESPIRATIONS EVEN AND UNLABORED ON RA W/ NAD NOTED. PT CONNECTED TO THE MONITOR AND POX
[2020-11-05 22:28] LABS: BASOPHILS # (AUTO) 0.1 /CMM (0.0-0.2); BASOPHILS % (AUTO) 1.2 % (0.0-2.0); EOSINOPHILS % (AUTO) 0.9 % (0.0-6.0); HEMATOCRIT 37 % (39-51); HEMOGLOBIN 11.8 g/dL (13.5-17.5); LYMPHOCYTES # (AUTO) 1.6 /CMM (0.8-4.8); LYMPHOCYTES % (AUTO) 22.6 % (20.0-44.0); MEAN CORPUSCULAR HGB CONC 32 g/dl (31.0-36.0); MEAN CORPUSCULAR VOLUME 93 fL (80-96); MONOCYTES # (AUTO) 0.4 /CMM (0.1-1.30); MONOCYTES % (AUTO) 5.8 % (2.0-12.0); NEUTROPHILS # (AUTO) 4.9 /CMM (1.8-8.9); NEUTROPHILS % (AUTO) 69.5 % (43.0-81.0); PLATELET COUNT (AUTO) 240 /CMM (150-450); RED BLOOD CELL COUNT(AUTO) 3.94 MIL/uL (4.5-6.0); WHITE BLOOD COUNT (AUTO) 7.1 K/uL (4.3-11.0)
[2020-11-05] MEDS: IV NS 0.9% 1,000 ML BAG IV ONE (22:30)
[2020-11-05] MEDS ORDERED: IBUPROFEN 600 MG TABLET ONE (22:32)
--- NOTE | 2020-11-05 22:33 | NUR ---
BROUGHT TO CT
[2020-11-05] MEDS: IBUPROFEN 600 MG TABLET PO ONE (22:35)
[2020-11-05 22:43] LABS: CALCIUM, SERUM 8.8 mg/dL (8.5-10.1); CARBON DIOXIDE 25 mmol/L (21-32); CHLORIDE 107 mmol/L (98-107); GLUCOSE 94 mg/dL (74-106); POTASSIUM 3.4 mmol/L (3.5-5.1); SODIUM SERUM 147 mmol/L (136-145); UREA NITROGEN, BLOOD 10 mg/dL (7-18)
--- NOTE | 2020-11-05 22:52 | NUR ---
URINE COLLECTED AND SENT TO LAB
[2020-11-05 23:03] LABS: ACETAMINOPHEN < 2 ug/ml (10-30); ALANINE AMINOTRANSFERASE 47 U/L (12-78); ALBUMIN 3.7 g/dL (3.4-5.0); ALCOHOL, BLOOD 343 mg/dL (0-0); ALKALINE PHOSPHATASE 99 U/L (46-116); ASPARTATE AMINOTRANSFERASE 50 U/L (15-37); BILIRUBIN,DIRECT 0.1 mg/dL (0.0-0.2); BILIRUBIN,TOTAL 0.2 mg/dL (0.2-1.0); TOTAL PROTEIN, SERUM 7.5 g/dL (6.4-8.2)
[2020-11-05 23:06] LABS: BILIRUBIN,URINE Negative (NEGATIVE); BLOOD, URINE Small Ery/uL (NEGATIVE); COLOR,URINE YELLOW (YELLOW); LEUKOCYTE ESTERASE ,URINE Negative (NEGATIVE); NITRITE, URINE Negative (NEGATIVE); PH,URINE 5.5 (5.0-8.0); PROTEIN,URINE Negative (NEGATIVE); UGLUCOSE Negative (NEGATIVE); UROBILINOGEN,URINE 0.2 EU/dL (0.2)
[2020-11-05 23:23] LABS: BACTERIA,URINE Rare /HPF (None Seen); SQUAMOUS EPITHELIAL CELL,UR Few /HPF (None Seen); WBC,URINE NONE SEEN /HPF (0-3)
--- NOTE | 2020-11-06 00:46 | NUR ---
Patient eloped from facility. ER MD notified.
== END 2020-11-06 00:47 | disposition left against medical advice (07) ==
LOC: ER 20:12
DX: R10.84 Generalized abdominal pain (principal); F10.229 Alcohol dependence with intoxication, unspecified; R50.9 Fever, unspecified; R53.1 Weakness; Z20.828 Contact with and (suspected) exposure to other viral communicable diseases; K70.30 Alcoholic cirrhosis of liver without ascites; Y90.8 Blood alcohol level of 240 mg/100 ml or more; Z59.0 Homelessness; F32.9 Major depressive disorder, single episode, unspecified; N28.1 Cyst of kidney, acquired; D64.9 Anemia, unspecified
CPT/HCPCS: 36415; 74176; 80048; 80076; 80299; 80307; 80320; 81001; 85025; 87804; 96360; 99284; C9803; J7030; U0003; G0480

== ENCOUNTER 2021-01-01 19:59 | Emergency (ER) | payer OTHER ==
[~2021-01-01] VITALS: Ht 182.9 cm; Wt 127.0 kg
--- NOTE | 2021-01-01 20:28 | NUR ---
CALLED FOR COVID SWAB
--- NOTE | 2021-01-01 20:51 | NUR ---
URINE COLLECTED, SENT TO LAB.
--- NOTE | 2021-01-01 20:51 | NUR ---
TAWNYID SWABBED, SENT TO LAB.
[2021-01-01 20:59] LABS: HEMATOCRIT 39 % (39-51); HEMOGLOBIN 12.8 g/dL (13.5-17.5); LYMPHOCYTES # (AUTO) 1.9 /CMM (0.8-4.8); MEAN CORPUSCULAR HGB CONC 33 g/dl (31.0-36.0); MEAN CORPUSCULAR VOLUME 88 fL (80-96); MONOCYTES # (AUTO) 0.3 /CMM (0.1-1.30); MONOCYTES % (AUTO) 6.3 % (2.0-12.0); NEUTROPHILS # (AUTO) 2.5 /CMM (1.8-8.9); NEUTROPHILS % (AUTO) 52.7 % (43.0-81.0); PLATELET COUNT (AUTO) 239 /CMM (150-450); RED BLOOD CELL COUNT(AUTO) 4.41 MIL/uL (4.5-6.0); WHITE BLOOD COUNT (AUTO) 4.8 K/uL (4.3-11.0)
[2021-01-01 21:01] LABS: COLOR,URINE YELLOW (YELLOW)
[2021-01-01 21:02] LABS: BILIRUBIN,URINE NEGATIVE (NEGATIVE); LEUKOCYTE ESTERASE ,URINE NEGATIVE (NEGATIVE); NITRITE, URINE NEGATIVE (NEGATIVE); PROTEIN,URINE 1+ mg/dl (NEGATIVE); UGLUCOSE NEGATIVE (NEGATIVE)
[2021-01-01 21:12] LABS: ALANINE AMINOTRANSFERASE 47 U/L (12-78); ALBUMIN 3.7 g/dL (3.4-5.0); ALCOHOL, BLOOD 372 mg/dL (0-0); ALKALINE PHOSPHATASE 132 U/L (46-116); ASPARTATE AMINOTRANSFERASE 53 U/L (15-37); BILIRUBIN,DIRECT 0.1 mg/dL (0.0-0.2); BILIRUBIN,TOTAL 0.3 mg/dL (0.2-1.0); CALCIUM, SERUM 8.4 mg/dL (8.5-10.1); CARBON DIOXIDE 26 mmol/L (21-32); CHLORIDE 107 mmol/L (98-107); CREATININE 0.9 mg/dL (0.6-1.3); GLUCOSE 101 mg/dL (74-106); POTASSIUM 3.5 mmol/L (3.5-5.1); SODIUM SERUM 147 mmol/L (136-145); TOTAL PROTEIN, SERUM 7.4 g/dL (6.4-8.2); UREA NITROGEN, BLOOD 11 mg/dL (7-18)
[2021-01-01 21:13] LABS: ACETAMINOPHEN < 10 ug/ml (10-30)
[2021-01-01 21:13] LABS: BACTERIA,URINE Few /HPF (None Seen); HYALINE CASTS, URINE Few /LPF (None Seen); RBC,URINE 0-2 /HPF (0-2); SQUAMOUS EPITHELIAL CELL,UR Few /HPF (None Seen); WBC,URINE 0-2 /HPF (0-3)
[2021-01-01] MEDS ORDERED: IV NS 0.9% 1,000 ML BAG IV ONE (21:30)
--- NOTE | 2021-01-01 21:31 | NUR ---
LAB CALLED REGARDING NEGATIVE COVID RESULT.
--- NOTE | 2021-01-01 21:52 | NUR ---
PT PROVIDED WITH WATER. VSS.
--- NOTE | 2021-01-02 05:10 | NUR ---
pt states no longer suicidal, able to go home
--- NOTE | 2021-01-02 05:12 | NUR ---
Patient discharged to home in stable condition. Written and verbal after care instructions given. Patient verbalizes understanding of instruction.
[2021-01-02 05:14] VITALS: BP 160/98
== END 2021-01-02 05:14 | disposition home or self-care (01) ==
LOC: ER 19:59
DX: R10.84 Generalized abdominal pain (principal); R45.851 Suicidal ideations; R11.2 Nausea with vomiting, unspecified; D64.9 Anemia, unspecified; F10.229 Alcohol dependence with intoxication, unspecified; K70.30 Alcoholic cirrhosis of liver without ascites; Y90.8 Blood alcohol level of 240 mg/100 ml or more; Z20.822 Contact with and (suspected) exposure to COVID-19
CPT/HCPCS: 36415; 80048; 80076; 80299; 80307; 80320; 81001; 83690; 85025; 87426; 99285; C9803; G0480; J7030

== ENCOUNTER 2021-01-28 21:47 | Emergency (ER) | payer OTHER ==
[~2021-01-28] VITALS: Ht 188 cm; Wt 127.0 kg
[2021-01-28 21:50] VITALS: BP 113/89
== END 2021-01-29 | disposition home or self-care (01) ==
LOC: ER 21:49
DX: R10.84 Generalized abdominal pain (principal); F32.9 Major depressive disorder, single episode, unspecified; Z76.5 Malingerer [conscious simulation]; Z02.89 Encounter for other administrative examinations

== ENCOUNTER 2021-01-29 08:22 | Emergency (ER) | payer OTHER ==
[~2021-01-29] VITALS: Ht 175.3 cm; Wt 108.4 kg
--- NOTE | 2021-01-29 08:41 | NUR ---
BIBSELF SI " RUN INTO TRAFFIC " & DIFFUSE ABD PAIN. PT AAOX3, VSS. RR EVEN & UNLABORED. DENIES CP, SOB, DIZZINESS, N/V AT THIS TIME. PT SEEN & EVAL'D BY DR. BRIGGS. ALEXX AT & WILL CONT TO MONITOR.
[2021-01-29 09:20] LABS: BASOPHILS % (AUTO) 0.8 % (0.0-2.0); EOSINOPHILS % (AUTO) 1.1 % (0.0-6.0); HEMATOCRIT 40 % (39-51); LYMPHOCYTES # (AUTO) 1.4 /CMM (0.8-4.8); LYMPHOCYTES % (AUTO) 25.2 % (20.0-44.0); MEAN CORPUSCULAR HGB CONC 32 g/dl (31.0-36.0); MEAN CORPUSCULAR VOLUME 91 fL (80-96); MONOCYTES # (AUTO) 0.3 /CMM (0.1-1.30); NEUTROPHILS # (AUTO) 3.8 /CMM (1.8-8.9); NEUTROPHILS % (AUTO) 66.9 % (43.0-81.0); PLATELET COUNT (AUTO) 226 /CMM (150-450); WHITE BLOOD COUNT (AUTO) 5.7 K/uL (4.3-11.0)
[2021-01-29 09:28] LABS: CALCIUM, SERUM 9.1 mg/dL (8.5-10.1); CARBON DIOXIDE 22 mmol/L (21-32); CHLORIDE 108 mmol/L (98-107); CREATININE 0.7 mg/dL (0.6-1.3); GLUCOSE 107 mg/dL (74-106); POTASSIUM 3.6 mmol/L (3.5-5.1); SODIUM SERUM 148 mmol/L (136-145); UREA NITROGEN, BLOOD 10 mg/dL (7-18)
[2021-01-29 09:33] LABS: ALANINE AMINOTRANSFERASE 38 U/L (12-78); ALCOHOL, BLOOD 191 mg/dL (0-0); ALKALINE PHOSPHATASE 112 U/L (46-116); ASPARTATE AMINOTRANSFERASE 43 U/L (15-37); BILIRUBIN,DIRECT 0.1 mg/dL (0.0-0.2); BILIRUBIN,TOTAL 0.4 mg/dL (0.2-1.0)
[2021-01-29 09:35] LABS: ACETAMINOPHEN < 10 ug/ml (10-30)
--- NOTE | 2021-01-29 10:30 | NUR ---
CALLED MARCIA CHANEL TO SPEAK WITH THE PT.
[2021-01-29 10:53] LABS: BILIRUBIN,URINE Negative (NEGATIVE); COLOR,URINE YELLOW (YELLOW); LEUKOCYTE ESTERASE ,URINE Negative (NEGATIVE); NITRITE, URINE Negative (NEGATIVE); PROTEIN,URINE Negative (NEGATIVE); UGLUCOSE Negative (NEGATIVE); UROBILINOGEN,URINE 0.2 EU/dL (0.2)
--- NOTE | 2021-01-29 13:23 | NUR ---
Research Kennel Supervisor Consultation: Research Kennel Supervisor consultation requested for patient due to suicidal ideation. Per ED Physicians note, patient came to the emergency department stating he is suicidal and has abdominal pain. Patient had a plan to kill himself by running into traffic. Per toxicology report, patients blood alcohol levels were at 191. SW met with patient and assessed for current suicidal ideations. Patient is oriented x 3, and presents with restlessness. Patient stated, yes, I want to walk into traffic. Patient stated that he does not currently have access to social support. SW discussed patients hx with substance abuse and his current level of alcohol, per toxicology report. SW offered substance abuse treatment resource to the patient, and patient expressed agreement with receiving these resources. Patient was provided with an [facility] packet. [facility] . decontamination techniciandavis Dennisonby stated he [facility] once the levels are below 100.
--- NOTE | 2021-01-29 14:50 | NUR ---
[facility]
--- NOTE | 2021-01-29 16:55 | NUR ---
[facility] TO FAX [phone]
--- NOTE | 2021-01-29 18:20 | NUR ---
PT ACCEPTED TO [facility] UNDER THE CARE OF DR. TREVIZO. [phone] UNIT-1 FOR REPORT.
--- NOTE | 2021-01-29 18:25 | NUR ---
CALLED TRANSPORT [id number] [phone] [facility] WILL CALL WITH DETAILS OF TRANSPORT REF #[id number] MARILIN HERNANDEZ
[2021-01-29] MEDS ORDERED: CLONIDINE HCL 0.1 MG TABLET PO ONE (19:30)
[2021-01-29] MEDS ORDERED: CLONIDINE HCL 0.1 MG TABLET ONE (19:31)
[2021-01-29 20:25] VITALS: BP 152/90
--- NOTE | 2021-01-29 20:26 | NUR ---
REPORT GIVEN TO TATIANA VIEIRA FOR MARSHA
[2021-01-29] MEDS ORDERED: CHLORDIAZEPOXIDE HCL 25 MG CAPSULE ONE (20:29)
[2021-01-29] MEDS ORDERED: CHLORDIAZEPOXIDE HCL 25 MG CAPSULE PO ONE (20:30)
--- NOTE | 2021-01-29 20:40 | NUR ---
PT TRANSFERED TO [facility]
== END 2021-01-29 20:41 ==
LOC: ER 08:30
DX: R45.851 Suicidal ideations (principal); K70.30 Alcoholic cirrhosis of liver without ascites; Y90.6 Blood alcohol level of 120-199 mg/100 ml; R00.0 Tachycardia, unspecified; G89.29 Other chronic pain; R10.9 Unspecified abdominal pain; Z59.0 Homelessness; E66.9 Obesity, unspecified; Z68.35 Body mass index [BMI] 35.0-35.9, adult; F10.139 Alcohol abuse with withdrawal, unspecified; F10.129 Alcohol abuse with intoxication, unspecified; I10 Essential (primary) hypertension; Z20.822 Contact with and (suspected) exposure to COVID-19
CPT/HCPCS: 36415; 80048; 80076; 80299; 80307; 80320 ×2; 81003; 85025; 87426; 99285; C9803; G0480

== ENCOUNTER 2021-02-09 20:15 | Emergency (ER) | payer OTHER ==
[~2021-02-09] VITALS: Ht 175.3 cm; Wt 108.4 kg
--- NOTE | 2021-02-09 20:27 | NUR ---
PT AAOX4, MARTA REQUESTING TO BE TRANSFERED TO [facility]. DENIES SI AND HI. STATED HE FEELS DEPRESSED.
--- NOTE | 2021-02-09 20:36 | NUR ---
PT DOES NOT WANT FLUIDS. ER PA AWARE.
--- NOTE | 2021-02-09 20:45 | NUR ---
TAWNYID SWABBED, SENT TO LAB.
[2021-02-09] MEDS ORDERED: IV NS 0.9% 1,000 ML BAG IV ONE (21:00)
[2021-02-09 22:01] LABS: BASOPHILS % (AUTO) 0.8 % (0.0-2.0); EOSINOPHILS % (AUTO) 0.5 % (0.0-6.0); HEMATOCRIT 39 % (39-51); HEMOGLOBIN 12.6 g/dL (13.5-17.5); LYMPHOCYTES # (AUTO) 1.9 /CMM (0.8-4.8); LYMPHOCYTES % (AUTO) 40.2 % (20.0-44.0); MEAN CORPUSCULAR HGB CONC 32 g/dl (31.0-36.0); MEAN CORPUSCULAR VOLUME 93 fL (80-96); MONOCYTES # (AUTO) 0.4 /CMM (0.1-1.30); MONOCYTES % (AUTO) 7.8 % (2.0-12.0); NEUTROPHILS # (AUTO) 2.4 /CMM (1.8-8.9); NEUTROPHILS % (AUTO) 50.7 % (43.0-81.0); PLATELET COUNT (AUTO) 238 /CMM (150-450); RED BLOOD CELL COUNT(AUTO) 4.23 MIL/uL (4.5-6.0); WHITE BLOOD COUNT (AUTO) 4.7 K/uL (4.3-11.0)
[2021-02-09 22:26] LABS: ALANINE AMINOTRANSFERASE 35 U/L (12-78); ALBUMIN 3.6 g/dL (3.4-5.0); ALCOHOL, BLOOD 361 mg/dL (0-0); ALKALINE PHOSPHATASE 89 U/L (46-116); ASPARTATE AMINOTRANSFERASE 27 U/L (15-37); BILIRUBIN,DIRECT 0.1 mg/dL (0.0-0.2); BILIRUBIN,TOTAL 0.3 mg/dL (0.2-1.0); CALCIUM, SERUM 8.3 mg/dL (8.5-10.1); CARBON DIOXIDE 25 mmol/L (21-32); CHLORIDE 109 mmol/L (98-107); CREATININE 0.9 mg/dL (0.6-1.3); GLUCOSE 117 mg/dL (74-106); POTASSIUM 3.3 mmol/L (3.5-5.1); SODIUM SERUM 147 mmol/L (136-145); TOTAL PROTEIN, SERUM 7.4 g/dL (6.4-8.2); UREA NITROGEN, BLOOD 10 mg/dL (7-18)
[2021-02-09 22:30] LABS: ACETAMINOPHEN < 2 ug/ml (10-30)
--- NOTE | 2021-02-09 22:39 | NUR ---
URINE COLLECTED, SENT TO LAB
[2021-02-09 22:46] LABS: BILIRUBIN,URINE NEGATIVE (NEGATIVE); COLOR,URINE YELLOW (YELLOW); LEUKOCYTE ESTERASE ,URINE NEGATIVE (NEGATIVE); NITRITE, URINE NEGATIVE (NEGATIVE); PROTEIN,URINE NEGATIVE (NEGATIVE); UGLUCOSE NEGATIVE (NEGATIVE); UROBILINOGEN,URINE 0.2 EU/dL (0.2)
[2021-02-09] MEDS ORDERED: POTASSIUM CHLORIDE 20 MEQ TAB.PRT.SR PO ONE ×2 (22:46→23:00)
[2021-02-09 23:20] LABS: WBC,URINE 0-2 /HPF (0-3)
[2021-02-09 23:21] LABS: BACTERIA,URINE None seen /HPF (None Seen); SQUAMOUS EPITHELIAL CELL,UR Few /HPF (None Seen)
--- NOTE | 2021-02-10 01:27 | NUR ---
PT ASLEEP, VSS.
--- NOTE | 2021-02-10 05:41 | NUR ---
PT REMAINS ASLEEP, PROVIDED WITH EXTRA BLANKETS.
--- NOTE | 2021-02-10 06:13 | NUR ---
NEUROPSYCHIATRIST AT BEDSIDE FOR DRAW
--- NOTE | 2021-02-10 09:08 | NUR ---
PATIENT RESTING IN BED, NO DISTRESS NOTED.
[2021-02-10] MEDS ORDERED: MAG HYDROX/AL HYDROX/SIMETH 30 ML UDC ONE (11:16)
[2021-02-10] MEDS ORDERED: LIDOCAINE VISCOUS 2% UD 15 ML UDC ONE (11:16)
[2021-02-10] MEDS ORDERED: ONDANSETRON 4 MG TAB.RAPDIS ONE ×2 (11:16→14:34)
[2021-02-10] MEDS ORDERED: ONDANSETRON 4 MG TAB.RAPDIS SL ONE ×2 (11:30→15:00)
[2021-02-10] MEDS ORDERED: LIDOCAINE VISCOUS 2% UD 15 ML UDC MM ONE (11:30)
[2021-02-10] MEDS ORDERED: MAG HYDROX/AL HYDROX/SIMETH 30 ML UDC PO ONE (11:30)
--- NOTE | 2021-02-10 12:00 | NUR ---
PATIENT PROVIDED FOOD TRAY. NO DISTRESS NOTED. PATIENT IN STABLE CONDITION.
[2021-02-10] MEDS ORDERED: HYDROCODONE/APAP 5/325MG TABLET ONE (14:34)
[2021-02-10] MEDS ORDERED: LORAZEPAM INJ 2 MG/ML VIAL ONE (14:40)
--- NOTE | 2021-02-10 14:48 | NUR ---
PATIENT IS NAUSEOUS. NEEDS ATTENDED.
--- NOTE | 2021-02-10 14:52 | NUR ---
FAXED INFO TO [facility]
[2021-02-10] MEDS ORDERED: LORAZEPAM INJ 2 MG/ML VIAL IM ONE (15:00)
[2021-02-10] MEDS ORDERED: HYDROCODONE/APAP 5/325MG TABLET PO ONE (15:00)
--- NOTE | 2021-02-10 15:56 | NUR ---
PATIENT ASLEEP, NO DISTRESS NOTED. WILL WASTE NORCO.
--- NOTE | 2021-02-10 16:38 | NUR ---
FACESHEET, [facility]
--- NOTE | 2021-02-10 17:37 | NUR ---
ROEL FROM [facility] PT ACCEPTED TO UNIT [address] HURT CALL [phone]
--- NOTE | 2021-02-10 17:49 | NUR ---
REPORT GIVEN TO SUGEY VIEIRA. [phone]
--- NOTE | 2021-02-10 18:26 | NUR ---
CALLED [id number] RESEVATION # [id number] SINA
--- NOTE | 2021-02-10 19:38 | NUR ---
ATTEMPTED TO CONTACT CALL THE CAR REGARDING TRANSPORTATION ETA. ON HOLD FOR 20+ MINUTES, UNABLE TO SPEAK WITH V BELT SKIVER
--- NOTE | 2021-02-10 20:24 | NUR ---
ATTEMPED TO CONTACT CALL THE CAR REGARDING TRANSPORTATION ETA, "12 CALLS AHEAD", UNABLE TO SPEAK TO CUSTOMER SERVICE REPRESENTATIVE TELLER
--- NOTE | 2021-02-10 20:29 | NUR ---
CALLED [facility] ETA 1HR
--- NOTE | 2021-02-10 20:41 | NUR ---
SPOKE WITH MAGI FROM [facility] TO CANCEL RESERVATION
--- NOTE | 2021-02-10 20:41 | NUR ---
REPORT GIVEN TO [facility] FOR TRANSPORTATION MARSHA
[2021-02-10 20:54] VITALS: BP 148/72
== END 2021-02-10 20:56 ==
LOC: ER 20:17
DX: R10.9 Unspecified abdominal pain (principal); F10.229 Alcohol dependence with intoxication, unspecified; K70.30 Alcoholic cirrhosis of liver without ascites; Y90.8 Blood alcohol level of 240 mg/100 ml or more; Z20.822 Contact with and (suspected) exposure to COVID-19; E87.0 Hyperosmolality and hypernatremia; E87.6 Hypokalemia; D64.9 Anemia, unspecified; F32.9 Major depressive disorder, single episode, unspecified; Z59.0 Homelessness
CPT/HCPCS: 36415 ×2; 80048; 80076; 80299; 80307; 80320 ×3; 81001; 83690; 85025; 87426; 96372; 99285; C9803; J2060; J7030; Q0162 ×2; G0480

== ENCOUNTER 2021-03-27 22:04 | Emergency (ER) | payer OTHER ==
[~2021-03-27] VITALS: Ht 175.3 cm; Wt 108.4 kg
--- NOTE | 2021-03-27 22:10 | NUR ---
PT MARTA FROM STREET C/O ALCOHOL INTOXICATION. PT AWAKE ON ARRIVAL, AMBULATORY STEADY GAIT. VITAL SIGNS STABLE. NO ACUTE DISTRESS NOTED AT THIS TIME.
--- NOTE | 2021-03-27 23:00 | NUR ---
PT PROVIDED WITH FOOD AND JUICE
--- NOTE | 2021-03-28 05:32 | NUR ---
PT is medically stbale for d/c. . Patient given written and verbal discharge instructions. Patient verbalizes understanding of instructions. Patient is ambulatory with steady gait. Refuses offer of retirement placement. Patient given list of available shelters in surrounding area. pt was provided w/ snacks.
[2021-03-28 05:36] VITALS: BP 111/78
== END 2021-03-28 05:36 | disposition home or self-care (01) ==
LOC: ER 22:04
DX: F10.129 Alcohol abuse with intoxication, unspecified (principal); F32.9 Major depressive disorder, single episode, unspecified; F17.200 Nicotine dependence, unspecified, uncomplicated; Z59.0 Homelessness; Y90.9 Presence of alcohol in blood, level not specified
CPT/HCPCS: 82962-TC

== ENCOUNTER 2021-03-28 21:13 | Emergency (ER) | payer OTHER ==
[~2021-03-28] VITALS: Ht 180.3 cm; Wt 108.4 kg
[2021-03-28 21:19] VITALS: BP 148/86
--- NOTE | 2021-03-28 21:20 | NUR ---
KARY POWER AT BEDSIDE FOR MEDICAL SCREENING EXAM
== END 2021-03-28 21:29 | disposition home or self-care (01) ==
LOC: ER 21:14
DX: F10.129 Alcohol abuse with intoxication, unspecified (principal); G89.29 Other chronic pain; R10.9 Unspecified abdominal pain; F32.9 Major depressive disorder, single episode, unspecified; F17.200 Nicotine dependence, unspecified, uncomplicated; Z59.0 Homelessness; Y90.9 Presence of alcohol in blood, level not specified

== ENCOUNTER 2021-04-20 16:28 | Emergency (ER) | payer OTHER ==
[~2021-04-20] VITALS: Ht 180.3 cm; Wt 108.4 kg
[2021-04-20 16:30] VITALS: BP 145/96
--- NOTE | 2021-04-20 16:45 | NUR ---
PT INSISTING ON GETTING WATER. WAS TOLD THAT HE NEEDS TO BE SEEN BY ER PROVIDER FIRST. PT DECIDED TO JUST LEAVE. PT NOT SEEN BY A PROVIDER.
== END 2021-04-20 16:48 | disposition left against medical advice (07) ==
LOC: ER 16:31
DX: Z53.21 Procedure and treatment not carried out due to patient leaving prior to being seen by health care provider (principal); R10.9 Unspecified abdominal pain; R11.0 Nausea; F32.9 Major depressive disorder, single episode, unspecified

== ENCOUNTER 2021-05-06 21:40 | Emergency (ER) | payer OTHER ==
[~2021-05-06] VITALS: Ht 198.1 cm; Wt 106.6 kg
[2021-05-06 22:00] VITALS: BP 106/55
--- NOTE | 2021-05-06 22:00 | NUR ---
PT BIBRA FROM STREET C/O ABDOMINAL PAIN X2 DAYS. PT SLEEPING COMFORTABLY IN BED. VITAL SIGNS STABLE. NO ACUTE DISTRESS NOTED AT THIS TIME. WILL CONTINUE TO MONITOR
[2021-05-06] MEDS ORDERED: ONDANSETRON HCL/PF 4 MG/2 ML VIAL IVP ONE (22:30)
[2021-05-06] MEDS ORDERED: IV NS 0.9% 1,000 ML BAG IV ONE (22:30)
--- NOTE | 2021-05-06 23:00 | NUR ---
UNABLE TO ESTABLISH IV LINE. BLOOD DRAWN BY COOLING TOWER OPERATOR. AWARE
[2021-05-06 23:12] LABS: BASOPHILS # (AUTO) 0.1 /CMM (0.0-0.2); EOSINOPHILS % (AUTO) 0.5 % (0.0-6.0); HEMATOCRIT 40 % (39-51); HEMOGLOBIN 13.1 g/dL (13.5-17.5); LYMPHOCYTES # (AUTO) 1.7 /CMM (0.8-4.8); LYMPHOCYTES % (AUTO) 38.8 % (20.0-44.0); MEAN CORPUSCULAR HGB CONC 33 g/dl (31.0-36.0); MEAN CORPUSCULAR VOLUME 97 fL (80-96); MONOCYTES # (AUTO) 0.4 /CMM (0.1-1.30); MONOCYTES % (AUTO) 9.1 % (2.0-12.0); NEUTROPHILS # (AUTO) 2.2 /CMM (1.8-8.9); NEUTROPHILS % (AUTO) 49.6 % (43.0-81.0); PLATELET COUNT (AUTO) 326 /CMM (150-450); RED BLOOD CELL COUNT(AUTO) 4.11 MIL/uL (4.5-6.0); WHITE BLOOD COUNT (AUTO) 4.5 K/uL (4.3-11.0)
[2021-05-06 23:45] LABS: CALCIUM, SERUM 8.3 mg/dL (8.5-10.1); CREATININE 1.1 mg/dL (0.6-1.3); POTASSIUM 3.5 mmol/L (3.5-5.1)
[2021-05-06 23:49] LABS: ALBUMIN 3.9 g/dL (3.4-5.0); BILIRUBIN,DIRECT 0.1 mg/dL (0.0-0.2); BILIRUBIN,TOTAL 0.3 mg/dL (0.2-1.0); TOTAL PROTEIN, SERUM 7.4 g/dL (6.4-8.2)
== END 2021-05-07 02:33 | disposition home or self-care (01) ==
LOC: ER 21:41
DX: R10.13 Epigastric pain (principal); G89.29 Other chronic pain; F32.9 Major depressive disorder, single episode, unspecified; F10.10 Alcohol abuse, uncomplicated; F17.200 Nicotine dependence, unspecified, uncomplicated; Y90.9 Presence of alcohol in blood, level not specified; Z59.0 Homelessness
CPT/HCPCS: 36415; 80048-TC; 80076-TC; 83690-TC; 85025-TC

== ENCOUNTER 2021-05-07 14:12 | Emergency (ER) | payer OTHER ==
[~2021-05-07] VITALS: Ht 198.1 cm; Wt 106.6 kg
--- NOTE | 2021-05-07 14:50 | NUR ---
a/o x3, able to make needs known, noted with slurred speech, MD at bedside, safety measures initiated, will continue to monitor.
[2021-05-07] MEDS ORDERED: LIDOCAINE VISCOUS 2% UD 15 ML UDC MM ONE (15:00)
[2021-05-07] MEDS ORDERED: MAG HYDROX/AL HYDROX/SIMETH 30 ML UDC PO ONE (15:00)
--- NOTE | 2021-05-07 15:15 | NUR ---
all due meds given, refused blood draw, per patient he does not need it, he wants to go.
[2021-05-07] MEDS ORDERED: LIDOCAINE VISCOUS 2% UD 15 ML UDC ONE (15:16)
[2021-05-07] MEDS ORDERED: MAG HYDROX/AL HYDROX/SIMETH 30 ML UDC ONE (15:16)
--- NOTE | 2021-05-07 15:25 | NUR ---
Orthopedic Designer consult: family services worker consult requested for ETOH use. Patient is a 50-year-old, male. SW met with patient at his bedside in the emergency department. Patient presented irritable and repeatedly stated, "I just want to leave." Per chart, patient was brought in by ambulance on 05/07/21 for ETOH use. Patient stated that he is currently living at [address] [place] [address]; [phone]. Patient stated that he is currently employed and receives SSI. SW assessed patient's history of substance use and patient reported daily alcohol use. Patient did not want to provide SW with information regarding the frequency of his alcohol use. Patient denied drug use. Patient denied history of mental illness. Patient denied suicidal and homicidal ideation. SW offered patient substance use resources and patient declined the resources stating, "I don't need them." SW discussed discharge plan with the patient. Patient stated that he will return to his prior living arrangement at home at the time of discharge and plans to use public transportation. PLAN: Patient will return to his prior living arrangement at home. No further SS intervention, however, SW will remain available as needed. Substance use resources provided included: [facility] Substance Abuse Self-Helpline ([facility]) ; [facility] [address] [place] [address] ; [facility] [address] [facility] [address] ; [facility] [address] [facility] [phone] ; [facility] [address] [facility] [phone] ; [facility] [address] [facility] [phone] ; [facility] [place]; [facility] [place]; Elma Lipscomb [place]; Alcoholics Anonymous -SFV
[2021-05-07 15:29] VITALS: BP 126/70
--- NOTE | 2021-05-07 15:30 | NUR ---
patient eloped from the unit. MD and Charge nurse made aware.
== END 2021-05-07 15:30 | disposition left against medical advice (07) ==
LOC: ER 14:20
DX: R10.13 Epigastric pain (principal); F10.10 Alcohol abuse, uncomplicated; R11.2 Nausea with vomiting, unspecified; F32.9 Major depressive disorder, single episode, unspecified; F17.200 Nicotine dependence, unspecified, uncomplicated; Y90.9 Presence of alcohol in blood, level not specified; Z59.0 Homelessness

== ENCOUNTER 2021-05-15 05:36 | Emergency (ER) | payer OTHER ==
[~2021-05-15] VITALS: Ht 185.4 cm; Wt 72.6 kg
--- NOTE | 2021-05-15 05:55 | NUR ---
PATIENT BIBSELF C/O GENERALIZED ABD PAIN X 1 DAY. SEEKING VOL PSYCH ADMISSION FOR "HEARING VOICES IN MY EARS". PATIENT A/OX 4, RR EVEN AND UNLABORED, NO SOB NOTED. PATIENT CONNECTED TO MONITOR. WILL CONTINUE TO MONITOR.
[2021-05-15] MEDS ORDERED: LIDOCAINE VISCOUS 2% UD 15 ML UDC ONE (06:47)
[2021-05-15] MEDS ORDERED: FAMOTIDINE (20 MG) 20 MG TABLET ONE (06:48)
[2021-05-15] MEDS ORDERED: MAG HYDROX/AL HYDROX/SIMETH 30 ML UDC ONE (06:48)
[2021-05-15] MEDS ORDERED: FAMOTIDINE (20 MG) 20 MG TABLET PO ONE (07:00)
[2021-05-15] MEDS ORDERED: MAG HYDROX/AL HYDROX/SIMETH 30 ML UDC PO ONE (07:00)
[2021-05-15] MEDS ORDERED: LIDOCAINE VISCOUS 2% UD 15 ML UDC MM ONE (07:00)
[2021-05-15 07:17] LABS: BASOPHILS # (AUTO) 0.1 K/uL (0.0-0.2); BASOPHILS % (AUTO) 1.1 % (0.0-2.0); HEMATOCRIT 41 % (39-51); HEMOGLOBIN 13.4 g/dL (13.5-17.5); LYMPHOCYTES # (AUTO) 2.1 K/uL (0.8-4.8); LYMPHOCYTES % (AUTO) 29.1 % (20.0-44.0); MEAN CORPUSCULAR HGB CONC 33 g/dl (31.0-36.0); MEAN CORPUSCULAR VOLUME 97 fL (80-96); MONOCYTES # (AUTO) 0.8 K/uL (0.1-1.30); MONOCYTES % (AUTO) 11.2 % (2.0-12.0); NEUTROPHILS # (AUTO) 3.9 K/uL (1.8-8.9); NEUTROPHILS % (AUTO) 55.6 % (43.0-81.0); PLATELET COUNT (AUTO) 216 K/uL (150-450); RED BLOOD CELL COUNT(AUTO) 4.26 MIL/uL (4.5-6.0); WHITE BLOOD COUNT (AUTO) 7.1 K/uL (4.3-11.0)
--- NOTE | 2021-05-15 07:45 | NUR ---
THE PATIENT HAVING BREAKFAST. TOLERATED FOOD WELL.
[2021-05-15 08:23] LABS: BILIRUBIN,URINE SMALL (NEGATIVE); COLOR,URINE DARK YELLOW (YELLOW); LEUKOCYTE ESTERASE ,URINE NEGATIVE (NEGATIVE); NITRITE, URINE NEGATIVE (NEGATIVE); PROTEIN,URINE 30 mg/dl (NEGATIVE); UGLUCOSE NEGATIVE (NEGATIVE)
[2021-05-15 08:39] LABS: BACTERIA,URINE Rare /HPF (None Seen); MUCUS,URINE Few /LPF (None Seen); RBC,URINE 0-2 /HPF (0-2); SQUAMOUS EPITHELIAL CELL,UR Rare /HPF (None Seen); WBC,URINE 0-2 /HPF (0-3)
--- NOTE | 2021-05-15 09:06 | NUR ---
The patient is alert and oriented x3. Denies having any distress. Will continue to monitor the patient.
--- NOTE | 2021-05-15 09:15 | NUR ---
covid swab done and sent to the lab
[2021-05-15 09:16] LABS: ACETAMINOPHEN < 10 ug/ml (10-30); ALANINE AMINOTRANSFERASE 64 U/L (12-78); ALCOHOL, BLOOD 113 mg/dL (0-0); ALKALINE PHOSPHATASE 100 U/L (46-116); ASPARTATE AMINOTRANSFERASE 57 U/L (15-37); BILIRUBIN,DIRECT 0.1 mg/dL (0.0-0.2); BILIRUBIN,TOTAL 0.5 mg/dL (0.2-1.0); CALCIUM, SERUM 8.8 mg/dL (8.5-10.1); CARBON DIOXIDE 20 mmol/L (21-32); CHLORIDE 105 mmol/L (98-107); GLUCOSE 94 mg/dL (74-106); POTASSIUM 3.9 mmol/L (3.5-5.1); SODIUM SERUM 140 mmol/L (136-145); TOTAL PROTEIN, SERUM 7.9 g/dL (6.4-8.2); UREA NITROGEN, BLOOD 17 mg/dL (7-18)
--- NOTE | 2021-05-15 10:00 | NUR ---
SS Consult: SS consult requested for depression & SI. The pt. is a 51-year-old male. MARCIA met with pt. bedside. Pt. is A&O X 4 and makes good eye contact. Pt. denies SI and denies visual hallucinations. Pt. stated that he is very depressed and "needs help" with his mental health. Pt. has intermittent thoughts of suicide and did not state a plan. Per pt. he currently has auditory hallucinations where voices "are having a conversation with someone else". MARCIA offered pt. voluntary psychiatric treatment and pt. is agreeable. SW provided pt. with mental health resources and pt. accepted then. Pt. denies having outpatient psychiatry/ counseling. SW encouraged pt. to set up outpatient services with resources provided and pt. is receptive. MARCIA explored pt.'s support system. Pt. stated his Natalie almanzar [phone] is his support system. MARCIA explored pt.'s drug/ETOH use. Pt. denies drug use and states he goes on binges where he drinks Liquor for days at a time. MARCIA provided addiction resources and pt. will follow up as needed. MARCIA explored pt.'s living situation. Pt. stated that he resides at [[address] [place] [address]; [phone]] and will go there once discharged [facility]. Plan: MARCIA referred pt. to [facility] [[address] [place] [address] FAX:[phone]] for inpatient psychiatric treatment. ADDICTION RESOURCES For Drugs and Alcohol [facility] Substance Abuse Helpline(SAS)-[facility] Outpatient treatment, residential treatment, recovery support for youth and adults [facility] www.actionfamilycounsEBDSoft.TrendingGames [facility] Teen programs for drug/alcohol education and support [facility]. Program for adults, sliding scale provides support and education Adpeps www.Jemstep.org [place]; Outpatient/residential treatment programs; transition to sober living [facility] www.cri-help.org [place]; Outpatient and residential treatment programs; transition to sober living [facility] Edd Ndiaye; Outpatient education and supportive programs for teens and adults [facility] [facility] www.oasiswomensrecovery.org [place]; Residential treatment and work program for females only [place] www.phoMin[place] Biomass Exchangexplant city.org [place]: Outpatient/residential treatment program for teens and young adults [facility] [place] www.[facility].org [place] Detox, inpatient, outpatient for adults and youth [facility], [facility]. [facility]; Outpatient programs and referrals to community residential programs. Alcoholics Anonymous -SFV information and meeting and schedules www.aa-intergroup.org Ed-Rrrv-Pefzmtu https://al-anon.org/ [place] support groups for family of alcoholics. Marijuana Anonymous www.madistrict6.org -sfv listing of meetings Narcotics Anonymous www.na.org SOBER LIVING RESOURCES The Sober Living Network www.soberhousing.net A non-profit agency that provides resources to recovery and sober living homes throughout [facility] Men's Sober Living Homes: A Work in ProgressChris [facility] Recovery Advocates, [place] SobriGreene County HospitalEdd Women's Sober Living Homes: [facility] Er x [phone] [place], [place] [facility] Coed Sober Living Homes: [facility] Counseling--Outpatient [facility] [address], [place] [address] (Specializes in in-depth psychotherapy for emotional distress: anxiety, depression, interpersonal conflicts, life transitions, childhood abuse) [facility] [address] [place] [address] (Assist with solving problem marital difficulties, separation & divorce, aging parents, & grief, chronic & terminal illness) [facility] [address] [place] [address] (Deal with loss & grief, anxiety, marital difficulties) Homebound/Mental Health Services [address] [facility] [address] [place] [address] (Provide in-home mental services to people who are incapable of leaving their homes) Organization for Needs of the Elderly Senior Service/Resource Center [address] [place] [address] [facility] [address] [place] [address] PSYCHIATRIC OUTPATIENT SERVICES [facility] Partial Hospitalization and Intensive Outpatient Program (Managed Care and [place] Only)[address] [facility] [phone] [facility] Partial Hospitalization and Outpatient Mwjvjpo06397 [facility] [address] [place], [place] [phone] [facility] Partial Hospitalization and Outpatient Pvdexhf5276 [place], [place] [phone] [facility] Mental Health [place] Fwz[address] [facility] [address] [place], [place] [phone] [facility] Partial Hospitalization and Outpatient Pilpdke[address] [place], [phone] Crisis and Hotline Telephone Numbers 24-Hour service unless stated [place] Crisis Hotlines: [place] Mental Health/Crisis Line........[phone] Suicide Prevention Center (24 Hours).......[phone] Suicide Prevention Crisis Center.......[phone] (24 Hours) Assaults Against Women Hotline.........699.855.5877 (24 Hours -- [facility]) Women and Children Crisis Senior Care...........[phone] (24 Hours) Child Abuse Hotline............502.957.5470 [facility] of Childrens Services Rape Treatment Center (24 Hours)..........[phone] Alcoholics Anonymous (24 Hours)..........[phone] Cocaine Anonymous (24 Hours)............[phone] Narcotics Anonymous (24 Hours)..........[phone] ONE[address] BAZZI [facility] [address] [place] [address] Mental Health Services [facility] [address] [place] [address] Services: Outpatient therapy for children, teens, young adults, adults, older adults, and families; Psychiatric services, medication support Crisis and Hotline Telephone Numbers 24-Hour service unless stated [place] Crisis Hotlines: [facility] Mental Health/Crisis Line........[phone] Suicide Prevention Center (24 Hours).......[phone] Suicide Prevention Crisis Center.......[phone] (24 Hours) Alcoholics Anonymous (24 Hours)..........826.645.7180 National Crisis Hotlines: Alcohol and Drug Helpline - Provides referrals to local facilities where adolescents and adults can seek help. Brief intervention. MARY LOU Helpline National [place] for the Mentally Ill 3-953-004-MARY LOU National Youth Crisis Hotline [place] [facility]. Provides free information on specific disorders, referral directory to mental health providers, national directory of local mental health associations (M-F, 9-5 EST) National [place] of Mental Health Information Line: Provide sinformation and literature on mental illness by disorder-for professionals and general public.
--- NOTE | 2021-05-15 11:26 | NUR ---
after 1300 [facility] bruno [phone] kei
--- NOTE | 2021-05-15 11:28 | NUR ---
MARCIA received call from [facility]. Patient has been accepted at [facility] after [address] Linder. Report can be made after 1300 to Installer Apprentice, Daisha [phone]. [facility].
--- NOTE | 2021-05-15 11:36 | NUR ---
CALLED TRANSPORT [facility] ETA 1400 PER MICHAEL
--- NOTE | 2021-05-15 12:00 | NUR ---
The patient refuses lunch. States that he is not hungry.
--- NOTE | 2021-05-15 13:07 | NUR ---
CALLED TRANSPORT [facility] ETA CHANGED FROM 1400 TO 1500 PER DAVID.
--- NOTE | 2021-05-15 15:25 | NUR ---
[facility]
[2021-05-15 15:26] VITALS: BP 121/77
== END 2021-05-15 15:27 ==
LOC: ER 05:36
DX: F32.9 Major depressive disorder, single episode, unspecified (principal); F10.129 Alcohol abuse with intoxication, unspecified; Y90.5 Blood alcohol level of 100-119 mg/100 ml; F13.10 Sedative, hypnotic or anxiolytic abuse, uncomplicated; F12.10 Cannabis abuse, uncomplicated; Z20.822 Contact with and (suspected) exposure to COVID-19; Z59.0 Homelessness; I11.9 Hypertensive heart disease without heart failure; F19.10 Other psychoactive substance abuse, uncomplicated
CPT/HCPCS: 36415; 71045; 80048; 80076; 80143; 80307; 80320; 81001; 83690; 85025; 87426; 99285; C9803; G0480

== ENCOUNTER 2021-06-30 21:56 | Emergency (ER) | payer OTHER ==
[~2021-06-30] VITALS: Ht 185.4 cm; Wt 72.6 kg
--- NOTE | 2021-06-30 22:34 | NUR ---
PT AAOX4. BIBRA [address] C/O ABD PAIN, N/V X 3 DAYS. ADMITTED TO DRINKING. PLACED IN BED 14 ON MONITOR AND PULSE OX.
[2021-06-30 22:56] LABS: BASOPHILS % (AUTO) 0.7 % (0.0-2.0); EOSINOPHILS % (AUTO) 0.6 % (0.0-6.0); HEMATOCRIT 42 % (39-51); HEMOGLOBIN 13.8 g/dL (13.5-17.5); LYMPHOCYTES # (AUTO) 1.6 K/uL (0.8-4.8); LYMPHOCYTES % (AUTO) 39.7 % (20.0-44.0); MEAN CORPUSCULAR HGB CONC 33 g/dl (31.0-36.0); MEAN CORPUSCULAR VOLUME 97 fL (80-96); MONOCYTES # (AUTO) 0.4 K/uL (0.1-1.30); MONOCYTES % (AUTO) 9.1 % (2.0-12.0); NEUTROPHILS % (AUTO) 49.9 % (43.0-81.0); PLATELET COUNT (AUTO) 230 K/uL (150-450); RED BLOOD CELL COUNT(AUTO) 4.29 MIL/uL (4.5-6.0)
[2021-06-30] MEDS ORDERED: ONDANSETRON HCL/PF 4 MG/2 ML VIAL IVP ONE (23:00)
[2021-06-30] MEDS ORDERED: IV NS 0.9% 1,000 ML BAG IV ONE (23:00)
--- NOTE | 2021-06-30 23:01 | NUR ---
PT RESFUSING CT. ER AWARE. STATED HE JUST WANTS BLOOD WORK DONE.
[2021-06-30 23:07] LABS: CALCIUM, SERUM 8.3 mg/dL (8.5-10.1); CARBON DIOXIDE 27 mmol/L (21-32); CHLORIDE 108 mmol/L (98-107); GLUCOSE 101 mg/dL (74-106); POTASSIUM 3.5 mmol/L (3.5-5.1); SODIUM SERUM 147 mmol/L (136-145); UREA NITROGEN, BLOOD 7 mg/dL (7-18)
[2021-06-30 23:12] LABS: ALANINE AMINOTRANSFERASE 56 U/L (12-78); ALKALINE PHOSPHATASE 89 U/L (46-116); ASPARTATE AMINOTRANSFERASE 71 U/L (15-37); BILIRUBIN,DIRECT 0.2 mg/dL (0.0-0.2); BILIRUBIN,TOTAL 0.9 mg/dL (0.2-1.0); TOTAL PROTEIN, SERUM 7.5 g/dL (6.4-8.2)
[2021-06-30] MEDS ORDERED: CT SWABBABLE VALVE TRANS SET 1 EA INFUS.SET MC ONE (23:14)
[2021-06-30] MEDS ORDERED: IV NS 0.9% 0 ML IV ONE (23:14)
[2021-06-30] MEDS ORDERED: IOHEXOL-300 100 ML VIAL IV ONE (23:14)
[2021-06-30 23:54] LABS: LIPASE 156 U/L (73-393)
[2021-07-01] MEDS ORDERED: ONDA4TAB5 PO (00:40)
--- NOTE | 2021-07-01 01:51 | NUR ---
Sander youssef in [facility] - 07/01/21 at 0259 by EVICTOR KERA ZHOUHL7 DEVELOPER AT BEDSIDE FOR EVAL.
--- NOTE | 2021-07-01 02:16 | NUR ---
Patient discharged to home in stable condition. Written and verbal after care instructions given. Patient verbalizes understanding of instruction. Pt left without signing papers.
[2021-07-01 03:00] VITALS: BP 131/75
== END 2021-07-01 03:00 | disposition home or self-care (01) ==
LOC: ER 21:56
DX: R10.13 Epigastric pain (principal); I45.10 Unspecified right bundle-branch block; I10 Essential (primary) hypertension; Z59.0 Homelessness
CPT/HCPCS: 36415; 80048-TC; 80076-TC; 83690-TC; 84484-TC; 85025-TC; J7050; Q9967

== ENCOUNTER 2021-07-02 00:32 | Emergency (ER) | payer OTHER ==
[~2021-07-02] VITALS: Ht 185.4 cm; Wt 72.6 kg
[~2021-07-02 00:32] MED LIST: ONDA4TAB5 PO
--- NOTE | 2021-07-02 00:35 | NUR ---
PT AAOX4. AMBULATORY WITH STEADY GAIT. BIB [address] +ETOH NOTED. PLACED IN BED 15 ON MONITOR AND PULSE OX. AWAITING ER MD FOR EVAL AND ORDERS.
--- NOTE | 2021-07-02 01:02 | NUR ---
DIGITAL COMPOSER AT BEDSIDE FOR BLOOD WORK.
[2021-07-02 01:06] LABS: BASOPHILS % (AUTO) 1.2 % (0.0-2.0); EOSINOPHILS % (AUTO) 0.7 % (0.0-6.0); HEMATOCRIT 38 % (39-51); HEMOGLOBIN 12.6 g/dL (13.5-17.5); LYMPHOCYTES # (AUTO) 1.4 K/uL (0.8-4.8); LYMPHOCYTES % (AUTO) 33.5 % (20.0-44.0); MEAN CORPUSCULAR HGB CONC 33 g/dl (31.0-36.0); MEAN CORPUSCULAR VOLUME 96 fL (80-96); MONOCYTES # (AUTO) 0.4 K/uL (0.1-1.30); MONOCYTES % (AUTO) 10.5 % (2.0-12.0); NEUTROPHILS # (AUTO) 2.2 K/uL (1.8-8.9); NEUTROPHILS % (AUTO) 54.1 % (43.0-81.0); PLATELET COUNT (AUTO) 192 K/uL (150-450); RED BLOOD CELL COUNT(AUTO) 3.93 MIL/uL (4.5-6.0); WHITE BLOOD COUNT (AUTO) 4.1 K/uL (4.3-11.0)
[2021-07-02] MEDS ORDERED: MAG HYDROX/AL HYDROX/SIMETH 30 ML UDC ONE (01:13)
[2021-07-02] MEDS ORDERED: DICYCLOMINE HCL 10 MG/5 ML UDC ONE (01:13)
[2021-07-02] MEDS ORDERED: LIDOCAINE VISCOUS 2% UD 15 ML UDC ONE (01:13)
[2021-07-02 01:22] LABS: CALCIUM, SERUM 8.2 mg/dL (8.5-10.1); CREATININE 0.7 mg/dL (0.6-1.3); POTASSIUM 3.3 mmol/L (3.5-5.1)
[2021-07-02] MEDS: DICYCLOMINE HCL 10 MG/5 ML UDC PO ONE (01:22)
[2021-07-02] MEDS: MAG HYDROX/AL HYDROX/SIMETH 30 ML UDC PO ONE (01:22)
[2021-07-02] MEDS: LIDOCAINE VISCOUS 2% UD 15 ML UDC MM ONE (01:22)
[2021-07-02 01:29] LABS: ALBUMIN 3.5 g/dL (3.4-5.0); BILIRUBIN,DIRECT 0.1 mg/dL (0.0-0.2); BILIRUBIN,TOTAL 0.5 mg/dL (0.2-1.0); TOTAL PROTEIN, SERUM 6.9 g/dL (6.4-8.2)
--- NOTE | 2021-07-02 01:31 | NUR ---
PT NOT ABLE TO PROVIDE URINE SAMPLE. REFUSED CATHETER.
--- NOTE | 2021-07-02 02:12 | NUR ---
PT REFUSED TO PROVIDE URINE
[2021-07-02] MEDS ORDERED: POTASSIUM CHLORIDE 20 MEQ TAB.PRT.SR PO ONE (04:24)
[2021-07-02] MEDS: POTASSIUM CHLORIDE 20 MEQ TAB.PRT.SR PO ONE (04:24)
--- NOTE | 2021-07-02 04:36 | NUR ---
PT REFUSED TO PROVIDE URINE
[2021-07-02] MEDS: MAGNESIUM OXIDE 400 MG TABLET PO ONE (04:37)
[2021-07-02] MEDS: MAGNESIUM OXIDE 400 MG TABLET ONE (04:37)
[2021-07-02 06:48] VITALS: BP 142/72
--- NOTE | 2021-07-02 06:48 | NUR ---
Patient discharged to home in stable condition. Written and verbal after care instructions given. Patient verbalizes understanding of instruction. Pt ambulated out of ED. VSS.
== END 2021-07-02 06:48 | disposition home or self-care (01) ==
LOC: ER 00:35
DX: F10.129 Alcohol abuse with intoxication, unspecified (principal); G89.29 Other chronic pain; R10.9 Unspecified abdominal pain; Z76.5 Malingerer [conscious simulation]; Z59.0 Homelessness; I10 Essential (primary) hypertension; Y90.8 Blood alcohol level of 240 mg/100 ml or more
CPT/HCPCS: 36415; 80048-TC; 80076-TC; 83690-TC; 85025-TC; G0480

== ENCOUNTER 2021-07-03 13:26 | Emergency (ER) | payer OTHER ==
[~2021-07-03] VITALS: Ht 185.4 cm; Wt 72.6 kg
--- NOTE | 2021-07-03 13:31 | NUR ---
MARTA Guerrero found laying the parking area near 06/01 for diffused abdominal pain x 2 days. Rates pain 5/10. abdomen soft and non-distended. Will continue to monitor the patient.
[2021-07-03] MEDS ORDERED: ONDANSETRON HCL/PF 4 MG/2 ML VIAL IVP ONE ×2 (14:00→14:30)
[2021-07-03] MEDS ORDERED: IV NS 0.9% 1,000 ML BAG IV ONE (14:00)
[2021-07-03] MEDS ORDERED: ONDANSETRON HCL/PF 4 MG/2 ML VIAL ONE (14:04)
[2021-07-03 14:28] LABS: BILIRUBIN,URINE Negative (NEGATIVE); COLOR,URINE YELLOW (YELLOW); LEUKOCYTE ESTERASE ,URINE Negative (NEGATIVE); NITRITE, URINE Negative (NEGATIVE); PROTEIN,URINE Negative (NEGATIVE); UGLUCOSE Negative (NEGATIVE); UROBILINOGEN,URINE 0.2 EU/dL (0.2)
[2021-07-03 14:29] LABS: BACTERIA,URINE Rare /HPF (None Seen); RBC,URINE 0-2 /HPF (0-2); SQUAMOUS EPITHELIAL CELL,UR Rare /HPF (None Seen); WBC,URINE 0-2 /HPF (0-3)
[2021-07-03] MEDS ORDERED: HYDROCODONE/APAP 5/325MG TABLET PO ONE (14:30)
[2021-07-03 14:56] LABS: BASOPHILS # (AUTO) 0.2 K/uL (0.0-0.2); BASOPHILS % (AUTO) 3.6 % (0.0-2.0); HEMATOCRIT 39 % (39-51); HEMOGLOBIN 12.6 g/dL (13.5-17.5); LYMPHOCYTES % (AUTO) 18.8 % (20.0-44.0); MEAN CORPUSCULAR HGB CONC 33 g/dl (31.0-36.0); MEAN CORPUSCULAR VOLUME 96 fL (80-96); MONOCYTES # (AUTO) 0.4 K/uL (0.1-1.30); MONOCYTES % (AUTO) 8.7 % (2.0-12.0); NEUTROPHILS # (AUTO) 3.5 K/uL (1.8-8.9); NEUTROPHILS % (AUTO) 67.9 % (43.0-81.0); PLATELET COUNT (AUTO) 159 K/uL (150-450); RED BLOOD CELL COUNT(AUTO) 4.03 MIL/uL (4.5-6.0); WHITE BLOOD COUNT (AUTO) 5.1 K/uL (4.3-11.0)
[2021-07-03 15:07] LABS: CALCIUM, SERUM 8.3 mg/dL (8.5-10.1); CREATININE 0.9 mg/dL (0.6-1.3); POTASSIUM 3.4 mmol/L (3.5-5.1)
[2021-07-03 15:12] LABS: ALBUMIN 3.7 g/dL (3.4-5.0); BILIRUBIN,DIRECT 0.1 mg/dL (0.0-0.2); BILIRUBIN,TOTAL 0.4 mg/dL (0.2-1.0)
[2021-07-03] MEDS ORDERED: HYDROCODONE/APAP 5/325MG TABLET ONE (15:17)
--- NOTE | 2021-07-03 18:35 | NUR ---
IV removed. Catheter intact and site benign. Pressure and 4x4 applied to site. No bleeding noted.
--- NOTE | 2021-07-03 18:38 | NUR ---
Patient given written and verbal discharge instructions. Patient verbalizes understanding of instructions. Patient is ambulatory with steady gait. Refuses offer of halfway placement. Patient given list of available shelters in surrounding area.
[2021-07-03 18:40] VITALS: BP 135/84
== END 2021-07-03 18:40 | disposition home or self-care (01) ==
LOC: ER 13:45
DX: F10.129 Alcohol abuse with intoxication, unspecified (principal); Y90.8 Blood alcohol level of 240 mg/100 ml or more; R45.851 Suicidal ideations; Z20.822 Contact with and (suspected) exposure to COVID-19; G89.29 Other chronic pain; Z59.0 Homelessness; R10.9 Unspecified abdominal pain
CPT/HCPCS: 36415; 80048; 80076; 80143; 80307; 80320; 81001; 83690; 85025; 87426; 96361; 96374; 99285; C9803; J2405; J7030; G0480

== ENCOUNTER 2021-09-24 22:17 | Emergency (ER) | payer OTHER ==
[~2021-09-24] VITALS: Ht 182.9 cm; Wt 104.3 kg
[2021-09-24] MEDS ORDERED: LIDOCAINE VISCOUS 2% UD 15 ML UDC ONE (22:48)
[2021-09-24] MEDS ORDERED: MAG HYDROX/AL HYDROX/SIMETH 30 ML UDC ONE (22:48)
--- NOTE | 2021-09-24 22:55 | NUR ---
PATIENT BIBRA[address] FROM STRE[address] C/O ABDOMINAL PAIN. PATIENT ADMITS TO DRINKING ALCOHOL, DID NOT STATE HOW MUCH. PATIENT IS A/O X 4, RR EVEN AND UNLABORED, NO SOB NOTED. PATIENT CONNECETED TO CARDIAC AND POX MONITOR.
[2021-09-24] MEDS ORDERED: LIDOCAINE VISCOUS 2% UD 15 ML UDC MM ONE (23:00)
[2021-09-24] MEDS ORDERED: MAG HYDROX/AL HYDROX/SIMETH 30 ML UDC PO ONE (23:00)
--- NOTE | 2021-09-25 01:23 | NUR ---
Patient is sleeping. Eyes are closed. Chest rise and falls evenly. Patient no in any distress. Call light is within reach. Bed at the lowest position. Side rails are up for safety. Patient is connected to the monitor. Will continue to monitor the patient closely.
[2021-09-25 05:01] VITALS: BP 124/71
--- NOTE | 2021-09-25 05:01 | NUR ---
Patient discharged to home in stable condition. Written and verbal after care instructions given. Patient verbalizes understanding of instruction.
== END 2021-09-25 05:02 | disposition home or self-care (01) ==
LOC: ER 22:20
DX: F10.129 Alcohol abuse with intoxication, unspecified (principal); G89.29 Other chronic pain; R10.9 Unspecified abdominal pain; I10 Essential (primary) hypertension; Z59.00 Homelessness unspecified; Y90.9 Presence of alcohol in blood, level not specified

== ENCOUNTER 2021-09-26 22:55 | Emergency (ER) | payer OTHER ==
[~2021-09-26] VITALS: Ht 172.7 cm; Wt 76.2 kg
--- NOTE | 2021-09-26 23:31 | NUR ---
PATIENT ELOPED BEFORE BEING SEEN BY .
[2021-09-26 23:33] VITALS: BP 148/100
== END 2021-09-26 23:33 | disposition left against medical advice (07) ==
LOC: ER 23:02
DX: Z53.21 Procedure and treatment not carried out due to patient leaving prior to being seen by health care provider (principal); I10 Essential (primary) hypertension

== ENCOUNTER 2021-09-28 19:16 | Emergency (ER) | payer OTHER ==
[~2021-09-28] VITALS: Ht 188 cm; Wt 86.2 kg
--- NOTE | 2021-09-28 19:56 | NUR ---
BIBRA TO ER BED 13. ALERT AND AWAKE. NOT IN RESP DISTRESS. BROUGHT IN FOR ABD PAIN. PT ADMITS TO DRINKING. AWAITING MD FOR EVAL.
[2021-09-28] MEDS ORDERED: LIDOCAINE VISCOUS 2% UD 15 ML UDC MM ONE (20:00)
[2021-09-28] MEDS ORDERED: MAG HYDROX/AL HYDROX/SIMETH 30 ML UDC PO ONE (20:00)
[2021-09-28] MEDS ORDERED: ONDANSETRON HCL/PF 4 MG/2 ML VIAL IVP ONE (20:00)
[2021-09-28] MEDS ORDERED: IV NS 0.9% 1,000 ML BAG IV ONE (20:00)
[2021-09-28] MEDS ORDERED: LIDOCAINE VISCOUS 2% UD 15 ML UDC ONE (20:09)
[2021-09-28] MEDS ORDERED: ONDANSETRON HCL/PF 4 MG/2 ML VIAL ONE (20:09)
[2021-09-28] MEDS ORDERED: MAG HYDROX/AL HYDROX/SIMETH 30 ML UDC ONE (20:10)
--- NOTE | 2021-09-28 21:00 | NUR ---
LAB AT BEDSIDE
[2021-09-28 21:32] LABS: BASOPHILS % (AUTO) 0.8 % (0.0-2.0); EOSINOPHILS % (AUTO) 0.2 % (0.0-6.0); HEMATOCRIT 34 % (39-51); LYMPHOCYTES # (AUTO) 1.1 K/uL (0.8-4.8); LYMPHOCYTES % (AUTO) 16.7 % (20.0-44.0); MEAN CORPUSCULAR HGB CONC 32 g/dl (31.0-36.0); MEAN CORPUSCULAR VOLUME 94 fL (80-96); MONOCYTES # (AUTO) 0.4 K/uL (0.1-1.30); NEUTROPHILS # (AUTO) 4.8 K/uL (1.8-8.9); NEUTROPHILS % (AUTO) 76.3 % (43.0-81.0); PLATELET COUNT (AUTO) 302 K/uL (150-450); RED BLOOD CELL COUNT(AUTO) 3.63 MIL/uL (4.5-6.0); WHITE BLOOD COUNT (AUTO) 6.3 K/uL (4.3-11.0)
[2021-09-28 21:39] LABS: CREATININE 0.6 mg/dL (0.6-1.3)
[2021-09-28 21:43] LABS: POTASSIUM 2.8 mmol/L (3.5-5.1)
--- NOTE | 2021-09-28 21:43 | NUR ---
PER LAB, WINDY 2.8
[2021-09-28 21:47] LABS: ALBUMIN 2.9 g/dL (3.4-5.0); BILIRUBIN,TOTAL 0.3 mg/dL (0.2-1.0)
[2021-09-28 21:48] LABS: TOTAL PROTEIN, SERUM 5.9 g/dL (6.4-8.2)
[2021-09-28] MEDS ORDERED: POTASSIUM CHLORIDE 20 MEQ TAB.PRT.SR PO ONE ×2 (21:51→22:00)
[2021-09-28] MEDS ORDERED: Magnesium 1GM/D5W 100ML PREMIX 100 ML IV ONE (22:29)
[2021-09-28] MEDS ORDERED: Magnesium 1GM/D5W 100ML PREMIX PIGGYBACK IV ONE (22:30)
--- NOTE | 2021-09-28 23:00 | NUR ---
Patient is resting comfortably in bed with eyes closed. Easily aroused. VSS
[2021-09-29] MEDS ORDERED: IV NS 0.9% 1,000 ML BAG IV ONE
--- NOTE | 2021-09-29 00:43 | NUR ---
PT SLEEPING, EASILY AROUSED, NAD, ATTACHED TO MONITOR AND POX
--- NOTE | 2021-09-29 01:52 | NUR ---
Patient is resting comfortably in bed with eyes closed. Easily aroused. VSS
--- NOTE | 2021-09-29 03:00 | NUR ---
PT WATCHING TV, ATTACHED TO MONITOR AND POX
--- NOTE | 2021-09-29 04:08 | NUR ---
Patient discharged to home in stable condition. Written and verbal after care instructions given. Patient verbalizes understanding of instruction. IV removed. Catheter intact and site benign. Pressure and 4x4 applied to site. No bleeding noted. Pt ambulatory with a steady gait. Pt refused to sign homeless waiver
[2021-09-29 04:11] VITALS: BP 145/89
== END 2021-09-29 04:12 | disposition home or self-care (01) ==
LOC: ER 19:18
DX: R10.13 Epigastric pain (principal); E87.6 Hypokalemia; E83.42 Hypomagnesemia; D53.9 Nutritional anemia, unspecified; F10.10 Alcohol abuse, uncomplicated; I10 Essential (primary) hypertension; I45.10 Unspecified right bundle-branch block; Y90.9 Presence of alcohol in blood, level not specified; Z59.00 Homelessness unspecified; Z79.899 Other long term (current) drug therapy
CPT/HCPCS: 36415; 80053; 83690; 83735; 84484; 85025; 93005 ×2; 96361 ×2; 96365; 96375; 99285; J2405; J3475; J7030 ×2

== ENCOUNTER 2021-11-25 09:00 | Emergency (ER) | payer OTHER ==
[~2021-11-25] VITALS: Ht 182.9 cm; Wt 97.5 kg
[2021-11-25] MEDS ORDERED: IV NS 0.9% 1,000 ML BAG IV ONE (11:30)
[2021-11-25] MEDS ORDERED: LORAZEPAM INJ 2 MG/ML VIAL IV ONE (11:30)
--- NOTE | 2021-11-25 11:49 | NUR ---
IV LINE IS ESTABLISHED, BLOOD SPECIMEN COLLECTED AND SENT TO THE LAB. THE LINE IS SALINE LOCKED.
[2021-11-25] MEDS ORDERED: LORAZEPAM INJ 2 MG/ML VIAL ONE (11:50)
[2021-11-25 12:06] LABS: BASOPHILS % (AUTO) 0.8 % (0.0-2.0); HEMATOCRIT 35 % (39-51); HEMOGLOBIN 11.5 g/dL (13.5-17.5); MEAN CORPUSCULAR HGB CONC 33 g/dl (31.0-36.0); MEAN CORPUSCULAR VOLUME 92 fL (80-96); MONOCYTES # (AUTO) 0.4 K/uL (0.1-1.30); MONOCYTES % (AUTO) 13.4 % (2.0-12.0); NEUTROPHILS # (AUTO) 1.8 K/uL (1.8-8.9); NEUTROPHILS % (AUTO) 53.8 % (43.0-81.0); PLATELET COUNT (AUTO) 156 K/uL (150-450); RED BLOOD CELL COUNT(AUTO) 3.84 MIL/uL (4.5-6.0); WHITE BLOOD COUNT (AUTO) 3.3 K/uL (4.3-11.0)
--- NOTE | 2021-11-25 12:26 | NUR ---
URINE COLLECTED AND SENT TO THE LAB
[2021-11-25 13:00] LABS: SERUM AMMONIA 23 umol/L (11-32)
[2021-11-25 13:05] LABS: ALANINE AMINOTRANSFERASE 36 U/L (12-78); ALBUMIN 3.7 g/dL (3.4-5.0); ALCOHOL, BLOOD 131 mg/dL (0-0); ALKALINE PHOSPHATASE 102 U/L (46-116); ASPARTATE AMINOTRANSFERASE 54 U/L (15-37); BILIRUBIN,DIRECT 0.2 mg/dL (0.0-0.2); BILIRUBIN,TOTAL 0.7 mg/dL (0.2-1.0); CALCIUM, SERUM 8.3 mg/dL (8.5-10.1); CARBON DIOXIDE 24 mmol/L (21-32); CHLORIDE 99 mmol/L (98-107); CREATININE 0.9 mg/dL (0.6-1.3); GLUCOSE 83 mg/dL (74-106); POTASSIUM 3.5 mmol/L (3.5-5.1); SODIUM SERUM 139 mmol/L (136-145); TOTAL PROTEIN, SERUM 7.6 g/dL (6.4-8.2); UREA NITROGEN, BLOOD 7 mg/dL (7-18)
[2021-11-25 13:55] LABS: BILIRUBIN,URINE NEGATIVE (NEGATIVE); COLOR,URINE DARK YELLOW (YELLOW); LEUKOCYTE ESTERASE ,URINE NEGATIVE (NEGATIVE); NITRITE, URINE NEGATIVE (NEGATIVE); PH,URINE 6.5 (5.0-8.0); PROTEIN,URINE TRACE mg/dl (NEGATIVE); UGLUCOSE NEGATIVE (NEGATIVE); UROBILINOGEN,URINE 0.2 EU/dL (0.2)
[2021-11-25 14:04] LABS: RBC,URINE NONE SEEN /HPF (0-2); WBC,URINE 0-2 /HPF (0-3)
[2021-11-25 14:05] LABS: BACTERIA,URINE Rare /HPF (None Seen); MUCUS,URINE Moderate /LPF (None Seen); SQUAMOUS EPITHELIAL CELL,UR Few /HPF (None Seen)
[2021-11-25] MEDS ORDERED: QUET25TA PO (14:24)
[2021-11-25] MEDS ORDERED: AMLO-213 PO (14:24)
[2021-11-25] MEDS ORDERED: CLON0.1T PO (14:24)
[2021-11-25] MEDS ORDERED: SERT100T12 PO (14:24)
--- NOTE | 2021-11-25 14:41 | NUR ---
COVID SWAB DONE AND SENT TO THE LAB
--- NOTE | 2021-11-25 22:33 | NUR ---
FACESHEET AND CLINICALS FAXED TO [facility].
--- NOTE | 2021-11-25 22:35 | NUR ---
Sander youssef in [facility] - 11/25/21 at 2236 by CAREY FACESHEET AND CLINICALS FAXED TO [facility].
[2021-11-26] MEDS ORDERED: MAG HYDROX/AL HYDROX/SIMETH 30 ML UDC PO ONE
[2021-11-26] MEDS ORDERED: FAMOTIDINE (20 MG) 20 MG TABLET PO ONE
[2021-11-26] MEDS ORDERED: LIDOCAINE VISCOUS 2% UD 15 ML UDC MM ONE
[2021-11-26] MEDS ORDERED: FAMOTIDINE (20 MG) 20 MG TABLET ONE (00:43)
[2021-11-26] MEDS ORDERED: QUETIAPINE FUMARATE 25 MG TABLET ONE ×2 (00:43→09:04)
[2021-11-26] MEDS ORDERED: LIDOCAINE VISCOUS 2% UD 15 ML UDC ONE (00:43)
[2021-11-26] MEDS ORDERED: MAG HYDROX/AL HYDROX/SIMETH 30 ML UDC ONE (00:43)
[2021-11-26] MEDS: QUETIAPINE FUMARATE 25 MG TABLET PO SCH ×2 (00:53→09:05)
--- NOTE | 2021-11-26 05:50 | NUR ---
SPOKE TO ART AT [facility] INTAKE. PT WILL BE ADMITTED AT [facility] IN AM,
--- NOTE | 2021-11-26 07:59 | NUR ---
PER [facility] LEVOVENUS THE PATIENT IS ACCPETED TO [facility]. THE PATIENT WILL GO TO [facility] AT 1000.
--- NOTE | 2021-11-26 08:00 | NUR ---
REPORT GIVEN TO NURSING AMITA ALEXNADER
[2021-11-26 08:05] VITALS: BP 136/87
--- NOTE | 2021-11-26 08:14 | NUR ---
TRANSPO SET UP BY [facility] WITH BEVEL FACE STONER AND POLISHER TIME [id number]
--- NOTE | 2021-11-26 09:35 | NUR ---
Patient [place] [facility] [place]. The patient is picked up via arranged transpo going [place] [facility].
== END 2021-11-26 11:51 ==
LOC: ER 09:01
DX: R45.851 Suicidal ideations (principal); R07.9 Chest pain, unspecified; Z20.822 Contact with and (suspected) exposure to COVID-19; Z91.14 Patient's other noncompliance with medication regimen; Z59.02 Unsheltered homelessness; F10.239 Alcohol dependence with withdrawal, unspecified; F10.229 Alcohol dependence with intoxication, unspecified; Y90.6 Blood alcohol level of 120-199 mg/100 ml; D72.819 Decreased white blood cell count, unspecified; D64.9 Anemia, unspecified; R00.0 Tachycardia, unspecified; I10 Essential (primary) hypertension
CPT/HCPCS: 36415; 71045; 80048; 80076; 80307; 80320; 81001; 82140; 84484; 85025; 87426; 93005; 96361; 96374; 99285; C9803; J2060; J7030; G0480

== ENCOUNTER 2022-02-07 00:09 | Emergency (ER) | payer OTHER ==
[~2022-02-07] VITALS: Ht 182.9 cm; Wt 86.2 kg
[~2022-02-07 00:09] MED LIST changes: +AMLO-213 PO; +CLON0.1T PO; -ONDA4TAB5 PO; +QUET25TA PO; +SERT100T12 PO
[2022-02-07 01:59] VITALS: BP 155/90
--- NOTE | 2022-02-07 02:33 | NUR ---
Patient eloped from facility. ER MD notified.
== END 2022-02-07 02:36 | disposition home or self-care (01) ==
LOC: ER 00:14
DX: Z53.21 Procedure and treatment not carried out due to patient leaving prior to being seen by health care provider (principal); I10 Essential (primary) hypertension; Z59.00 Homelessness unspecified; Z79.899 Other long term (current) drug therapy

== ENCOUNTER 2022-02-08 00:38 | Emergency (ER) | payer OTHER ==
[~2022-02-08] VITALS: Ht 182.9 cm; Wt 72.6 kg
[2022-02-08 01:01] VITALS: BP 152/90
--- NOTE | 2022-02-08 01:06 | NUR ---
PATIENT BIBRA FROM THE STREETS C/O "I NEED A BED". PATIENT IS ALERT AND ORIENTED X3. AMBULATORY WITH NON LABORED BREATHING IN BED 19 AWAITING MD MARIA.
--- NOTE | 2022-02-08 03:07 | NUR ---
Patient discharged to home in stable condition. Written and verbal after care instructions given. Patient verbalizes understanding of instruction.
== END 2022-02-08 04:52 | disposition home or self-care (01) ==
LOC: ER 00:42
DX: Z00.8 Encounter for other general examination (principal); Z59.00 Homelessness unspecified; I10 Essential (primary) hypertension; Z79.899 Other long term (current) drug therapy

== ENCOUNTER 2022-02-08 23:41 | Emergency (ER) | payer OTHER ==
[~2022-02-08] VITALS: Ht 177.8 cm; Wt 72.6 kg
[2022-02-08 23:50] VITALS: BP 157/94
--- NOTE | 2022-02-09 02:42 | NUR ---
Patient discharged to home in stable condition. Written and verbal after care instructions given. Patient verbalizes understanding of instruction.
== END 2022-02-09 02:43 | disposition home or self-care (01) ==
LOC: ER 23:42
DX: Z00.00 Encounter for general adult medical examination without abnormal findings (principal); Z76.89 Persons encountering health services in other specified circumstances; I10 Essential (primary) hypertension; Z86.2 Personal history of diseases of the blood and blood-forming organs and certain disorders involving the immune mechanism; Z59.00 Homelessness unspecified; Z79.899 Other long term (current) drug therapy

== ENCOUNTER 2022-02-17 01:15 | Emergency (ER) | payer OTHER ==
[~2022-02-17] VITALS: Ht 177.8 cm; Wt 72.6 kg
[2022-02-17 02:19] LABS: EOSINOPHILS % (AUTO) 1.2 % (0.0-6.0); HEMATOCRIT 40 % (39-51); HEMOGLOBIN 12.8 g/dL (13.5-17.5); LYMPHOCYTES # (AUTO) 0.9 K/uL (0.8-4.8); LYMPHOCYTES % (AUTO) 22.7 % (20.0-44.0); MEAN CORPUSCULAR HGB CONC 32 g/dl (31.0-36.0); MEAN CORPUSCULAR VOLUME 94 fL (80-96); MONOCYTES # (AUTO) 0.4 K/uL (0.1-1.30); MONOCYTES % (AUTO) 10.8 % (2.0-12.0); NEUTROPHILS # (AUTO) 2.5 K/uL (1.8-8.9); NEUTROPHILS % (AUTO) 64.3 % (43.0-81.0); PLATELET COUNT (AUTO) 147 K/uL (150-450); RED BLOOD CELL COUNT(AUTO) 4.23 MIL/uL (4.5-6.0); WHITE BLOOD COUNT (AUTO) 3.9 K/uL (4.3-11.0)
[2022-02-17 06:05] LABS: ALBUMIN 4.3 g/dL (3.4-5.0); BILIRUBIN,DIRECT 0.1 mg/dL (0.0-0.2); BILIRUBIN,TOTAL 0.2 mg/dL (0.2-1.0); CALCIUM, SERUM 9.2 mg/dL (8.5-10.1); POTASSIUM 3.9 mmol/L (3.5-5.1); TOTAL PROTEIN, SERUM 8.4 g/dL (6.4-8.2)
--- NOTE | 2022-02-17 07:15 | NUR ---
PATIENT IN BED, AAOX3, BREATHING EVEN AND NON LABORED
[2022-02-17 09:52] LABS: CREATININE 0.6 mg/dL (0.6-1.3)
--- NOTE | 2022-02-17 11:31 | NUR ---
PT IS AWAKE, AAOX4 AMBULATORY W/ STEADY GAIT. WAS PROVIDED W/ BREAKFAST TRAY. MEDICALLY CLEARED. DISCHARGED FROM IN IN STABLE CONDITION.
--- NOTE | 2022-02-17 11:34 | NUR ---
PT REFUSED TO SIGN HOMELESS WAIVER SAYING "IM OK. I DONT NEED THAT."
[2022-02-17 11:35] VITALS: BP 125/76
== END 2022-02-17 11:35 | disposition home or self-care (01) ==
LOC: ER 01:16
DX: R10.13 Epigastric pain (principal); F10.10 Alcohol abuse, uncomplicated; I10 Essential (primary) hypertension; Z59.00 Homelessness unspecified; Z79.899 Other long term (current) drug therapy; Y90.9 Presence of alcohol in blood, level not specified
CPT/HCPCS: 36415; 80048-TC; 80076-TC; 83690-TC; 85025-TC

== ENCOUNTER 2022-03-17 21:20 | Emergency (ER) | payer OTHER ==
[~2022-03-17] VITALS: Ht 182.9 cm; Wt 82.1 kg
[2022-03-17 22:55] LABS: BASOPHILS # (AUTO) 0.1 K/uL (0.0-0.2); BASOPHILS % (AUTO) 1.3 % (0.0-2.0); EOSINOPHILS % (AUTO) 0.9 % (0.0-6.0); HEMATOCRIT 33 % (39-51); HEMOGLOBIN 10.7 g/dL (13.5-17.5); LYMPHOCYTES # (AUTO) 1.4 K/uL (0.8-4.8); LYMPHOCYTES % (AUTO) 29.9 % (20.0-44.0); MEAN CORPUSCULAR HGB CONC 32 g/dl (31.0-36.0); MEAN CORPUSCULAR VOLUME 91 fL (80-96); MONOCYTES # (AUTO) 0.4 K/uL (0.1-1.30); MONOCYTES % (AUTO) 7.8 % (2.0-12.0); NEUTROPHILS # (AUTO) 2.8 K/uL (1.8-8.9); NEUTROPHILS % (AUTO) 60.1 % (43.0-81.0); PLATELET COUNT (AUTO) 458 K/uL (150-450); RED BLOOD CELL COUNT(AUTO) 3.68 MIL/uL (4.5-6.0); WHITE BLOOD COUNT (AUTO) 4.7 K/uL (4.3-11.0)
[2022-03-17 23:19] LABS: ALBUMIN 3.5 g/dL (3.4-5.0); BILIRUBIN,DIRECT 0.1 mg/dL (0.0-0.2); BILIRUBIN,TOTAL 0.3 mg/dL (0.2-1.0); CREATININE 0.8 mg/dL (0.6-1.3); POTASSIUM 3.7 mmol/L (3.5-5.1); TOTAL PROTEIN, SERUM 8.1 g/dL (6.4-8.2)
[2022-03-17 23:42] LABS: ALCOHOL, BLOOD 349 mg/dL (0-0); LIPASE 88 U/L (73-393)
[2022-03-18 05:27] VITALS: BP 116/76
--- NOTE | 2022-03-18 05:27 | NUR ---
Patient discharged to home in stable condition. Written and verbal after care instructions given. Patient verbalizes understanding of instruction. Pt ambulated out of ED. VSS.
== END 2022-03-18 05:28 | disposition home or self-care (01) ==
LOC: ER 21:22
DX: F10.129 Alcohol abuse with intoxication, unspecified (principal); M79.662 Pain in left lower leg; M25.562 Pain in left knee; I10 Essential (primary) hypertension; Z87.19 Personal history of other diseases of the digestive system; Z59.00 Homelessness unspecified; Z79.899 Other long term (current) drug therapy; Y90.8 Blood alcohol level of 240 mg/100 ml or more
CPT/HCPCS: 36415; 73560-TC; 73590-TC; 80048-TC; 80076-TC; 83690-TC; 85025-TC; G0480

== ENCOUNTER 2022-04-15 00:44 | Emergency (ER) | payer OTHER ==
[~2022-04-15] VITALS: Ht 182.9 cm; Wt 90.7 kg
[2022-04-15 01:20] VITALS: BP 146/98
--- NOTE | 2022-04-15 02:27 | NUR ---
PATIENT REFUSED TO SEE THE DR AND LEFT WITHOUT BEING SEEN. MD JIMÉNEZ
== END 2022-04-15 02:28 | disposition left against medical advice (07) ==
LOC: ER 00:46
DX: Z53.21 Procedure and treatment not carried out due to patient leaving prior to being seen by health care provider (principal)

== ENCOUNTER 2023-07-04 23:13 | Emergency (ER) | payer OTHER ==
[~2023-07-04] VITALS: Ht 182.9 cm; Wt 84.4 kg
[2023-07-04 23:42] VITALS: BP 131/76; TEMP 98.1; O2SAT 98
== END 2023-07-05 05:13 | disposition home or self-care (01) ==
LOC: ER 23:14
DX: F10.10 Alcohol abuse, uncomplicated (principal); Z79.899 Other long term (current) drug therapy; Z59.00 Homelessness unspecified; Y90.9 Presence of alcohol in blood, level not specified
CPT/HCPCS: 82962-TC

== ENCOUNTER 2023-07-07 20:55 | Inpatient (IN) | payer OTHER ==
[~2023-07-07] VITALS: Ht 177.8 cm; Wt 97.1 kg
[~2023-07-07 20:55] MED LIST changes: +AMLO5TAB4 PO; +FOLI0.8C PO; +HYDR-4354 PO; +LISI10TA29 PO; +LORA-259 PO; +NIFE60TA72 PO; +ONDA-97 PO; +PANT40TA49 PO; +SERT100T PO; +SERT50TA PO; +THIA100T88 PO
[2023-07-07] MEDS ORDERED: IV NS 0.9% 1,000 ML BAG IV ONE (21:30)
[2023-07-07 22:20] LABS: BASOPHILS % (AUTO) 0.9 % (0.0-2.0); EOSINOPHILS % (AUTO) 0.3 % (0.0-6.0); HEMATOCRIT 39 % (39-51); HEMOGLOBIN 12.6 g/dL (13.5-17.5); LYMPHOCYTES # (AUTO) 0.6 K/uL (0.8-4.8); LYMPHOCYTES % (AUTO) 15.3 % (20.0-44.0); MEAN CORPUSCULAR HEMOGLOBIN 31 PG (26.0-33.0); MEAN CORPUSCULAR HGB CONC 32 g/dl (31.0-36.0); MEAN CORPUSCULAR VOLUME 97 fL (80-96); MONOCYTES # (AUTO) 0.4 K/uL (0.1-1.30); NEUTROPHILS # (AUTO) 3.1 K/uL (1.8-8.9); NEUTROPHILS % (AUTO) 74.5 % (43.0-81.0); PLATELET COUNT (AUTO) 163 K/uL (150-450); RED BLOOD CELL COUNT(AUTO) 4.03 MIL/uL (4.5-6.0); WHITE BLOOD COUNT (AUTO) 4.2 K/uL (4.3-11.0)
[2023-07-07 22:30] LABS: CALCIUM, SERUM 8.8 mg/dL (8.5-10.1); CARBON DIOXIDE 24 mmol/L (21-32); CHLORIDE 108 mmol/L (98-107); CREATININE 0.8 mg/dL (0.6-1.3); GLUCOSE 103 mg/dL (74-106); POTASSIUM 3.5 mmol/L (3.5-5.1); SODIUM SERUM 146 mmol/L (136-145); UREA NITROGEN, BLOOD 4 mg/dL (7-18)
[2023-07-07 22:43] LABS: ALANINE AMINOTRANSFERASE 47 U/L (12-78); ALBUMIN 3.7 g/dL (3.4-5.0); ALKALINE PHOSPHATASE 109 U/L (46-116); ASPARTATE AMINOTRANSFERASE 69 U/L (15-37); BILIRUBIN,DIRECT 0.1 mg/dL (0.0-0.2); BILIRUBIN,TOTAL 0.3 mg/dL (0.2-1.0); LIPASE 649 U/L (73-393); SALICYLATE 4.7 mg/dL (2.8-20.0); TOTAL PROTEIN, SERUM 7.8 g/dL (6.4-8.2)
[2023-07-07 23:00] LABS: ACETAMINOPHEN <10 ug/ml (10-30)
[2023-07-07 23:01] LABS: ALCOHOL, BLOOD 461 mg/dL (0-10)
[2023-07-08] MEDS ORDERED: IV NS 0.9% 1,000 ML IV PRN (06:00)
[2023-07-08] MEDS ORDERED: ACETAMINOPHEN 325 MG TABLET PO PRN (06:00)
[2023-07-08] MEDS ORDERED: INSULIN REGULAR, HUMAN 100 UNIT/ML 3 ML VIAL SQ PRN (06:30)
[2023-07-08] MEDS ORDERED: DEXTROSE 50%-WATER 50 ML DISP.SYRIN IV PRN (06:30)
[2023-07-08 07:11] LABS: BASOPHILS % (AUTO) 0.9 % (0.0-2.0); EOSINOPHILS % (AUTO) 1.1 % (0.0-6.0); HEMATOCRIT 38 % (39-51); HEMOGLOBIN 12.3 g/dL (13.5-17.5); LYMPHOCYTES # (AUTO) 0.9 K/uL (0.8-4.8); LYMPHOCYTES % (AUTO) 26.2 % (20.0-44.0); MEAN CORPUSCULAR HEMOGLOBIN 32 PG (26.0-33.0); MEAN CORPUSCULAR HGB CONC 33 g/dl (31.0-36.0); MEAN CORPUSCULAR VOLUME 97 fL (80-96); MONOCYTES # (AUTO) 0.3 K/uL (0.1-1.30); MONOCYTES % (AUTO) 9.6 % (2.0-12.0); NEUTROPHILS # (AUTO) 2.1 K/uL (1.8-8.9); NEUTROPHILS % (AUTO) 62.2 % (43.0-81.0); PLATELET COUNT (AUTO) 142 K/uL (150-450); RED BLOOD CELL COUNT(AUTO) 3.89 MIL/uL (4.5-6.0); RED CELL DISTRIBUTION WIDTH 16.7 % (11.5-15.0); WHITE BLOOD COUNT (AUTO) 3.4 K/uL (4.3-11.0)
[2023-07-08] MEDS ORDERED: BLOOD SUGAR DIAGNOSTIC 1 EACH STRIP IN SCH (07:30)
[2023-07-08 07:33] LABS: ALBUMIN 3.3 g/dL (3.4-5.0); BILIRUBIN,TOTAL 0.4 mg/dL (0.2-1.0); CALCIUM, SERUM 8.2 mg/dL (8.5-10.1); CREATININE 0.8 mg/dL (0.6-1.3); MAGNESIUM 1.8 mg/dL (1.8-2.4); PHOSPHORUS 3.7 mg/dL (2.5-4.9); POTASSIUM 3.4 mmol/L (3.5-5.1)
[2023-07-08] MEDS ORDERED: POTASSIUM CHLORIDE 20 MEQ POWDER PACKET PO ONE (09:00)
[2023-07-08] MEDS ORDERED: PANTOPRAZOLE 40 MG VIAL IV SCH (09:00)
[2023-07-08] MEDS ORDERED: LORAZEPAM INJ 2 MG/ML VIAL IV STA (09:55)
[2023-07-08] MEDS: MORPHINE SULFATE INJ 2 MG/ML DISP.SYRIN IV PRN ×4 (09:55→22:14)
[2023-07-08] MEDS: LORAZEPAM INJ 2 MG/ML VIAL IV PRN ×2 (10:00→18:05)
[2023-07-08] MEDS: THIAMINE HCL 100 MG TABLET PO SCH (10:32)
[2023-07-08] MEDS: SERTRALINE HCL 50 MG TABLET PO SCH (10:33)
[2023-07-08] MEDS: CHLORDIAZEPOXIDE HCL 25 MG CAPSULE PO SCH ×4 (10:33→17:05)
[2023-07-08] MEDS: AMLODIPINE BESYLATE 10 MG TABLET PO SCH (10:33)
[2023-07-08] MEDS: LISINOPRIL (10MG) 10 MG TABLET PO SCH (10:33)
[2023-07-08] MEDS: PANTOPRAZOLE 40 MG TABLET.DR PO SCH (10:34)
[2023-07-08] MEDS: FOLIC ACID 1 MG TABLET PO SCH (10:34)
[2023-07-08] MEDS: IV LR 1000 ML 1,000 ML IV SCH ×2 (12:53→17:58)
[2023-07-08] MEDS: ONDANSETRON HCL/PF 4 MG/2 ML VIAL IVP PRN ×2 (15:32→21:11)
[2023-07-08 16:00] VITALS: BP 155/98; TEMP 98.9
[2023-07-08] MEDS: QUETIAPINE FUMARATE 25 MG TABLET PO SCH (21:21)
[2023-07-09 00:07] VITALS: BP 155/98; TEMP 98.9; O2SAT 98
[2023-07-09] MEDS: IV LR 1000 ML 1,000 ML IV SCH ×4 (01:30→21:44)
[2023-07-09] MEDS: MORPHINE SULFATE INJ 2 MG/ML DISP.SYRIN IV PRN ×4 (03:23→20:05)
[2023-07-09] MEDS: ONDANSETRON HCL/PF 4 MG/2 ML VIAL IVP PRN (06:39)
[2023-07-09 07:21] LABS: BASOPHILS % (AUTO) 0.8 % (0.0-2.0); EOSINOPHILS % (AUTO) 0.7 % (0.0-6.0); HEMATOCRIT 42 % (39-51); HEMOGLOBIN 13.9 g/dL (13.5-17.5); LYMPHOCYTES # (AUTO) 0.6 K/uL (0.8-4.8); LYMPHOCYTES % (AUTO) 17.5 % (20.0-44.0); MEAN CORPUSCULAR HEMOGLOBIN 32 PG (26.0-33.0); MEAN CORPUSCULAR HGB CONC 33 g/dl (31.0-36.0); MEAN CORPUSCULAR VOLUME 96 fL (80-96); MONOCYTES # (AUTO) 0.4 K/uL (0.1-1.30); MONOCYTES % (AUTO) 11.9 % (2.0-12.0); NEUTROPHILS # (AUTO) 2.2 K/uL (1.8-8.9); NEUTROPHILS % (AUTO) 69.1 % (43.0-81.0); PLATELET COUNT (AUTO) 115 K/uL (150-450); RED BLOOD CELL COUNT(AUTO) 4.37 MIL/uL (4.5-6.0); RED CELL DISTRIBUTION WIDTH 16.3 % (11.5-15.0); WHITE BLOOD COUNT (AUTO) 3.2 K/uL (4.3-11.0)
[2023-07-09 07:39] LABS: CALCIUM, SERUM 9.4 mg/dL (8.5-10.1); CREATININE 0.6 mg/dL (0.6-1.3); MAGNESIUM 1.5 mg/dL (1.8-2.4); PHOSPHORUS 3.4 mg/dL (2.5-4.9); POTASSIUM 3.3 mmol/L (3.5-5.1)
[2023-07-09] MEDS: PANTOPRAZOLE 40 MG TABLET.DR PO SCH (07:41)
[2023-07-09 08:00] VITALS: BP 168/104; TEMP 99; O2SAT 95
[2023-07-09] MEDS: FOLIC ACID 1 MG TABLET PO SCH (08:13)
[2023-07-09] MEDS: CHLORDIAZEPOXIDE HCL 25 MG CAPSULE PO SCH ×3 (08:13→17:00)
[2023-07-09] MEDS: THIAMINE HCL 100 MG TABLET PO SCH (08:13)
[2023-07-09] MEDS: SERTRALINE HCL 50 MG TABLET PO SCH (08:13)
[2023-07-09] MEDS: LISINOPRIL (10MG) 10 MG TABLET PO SCH (08:14)
[2023-07-09] MEDS: AMLODIPINE BESYLATE 10 MG TABLET PO SCH (08:14)
[2023-07-09] MEDS ORDERED: MAGNESIUM OXIDE 400 MG TABLET PO ONE (09:30)
[2023-07-09] MEDS ORDERED: POTASSIUM CHLORIDE 20 MEQ TAB.PRT.SR PO ONE (09:30)
[2023-07-09] MEDS ORDERED: Magnesium 1GM/D5W 100ML PREMIX 100 ML IV SCH (10:00)
[2023-07-09 15:56] VITALS: BP 142/86; TEMP 98.7; O2SAT 95
[2023-07-09 16:00] VITALS: BP 142/86; TEMP 98.7; O2SAT 95
[2023-07-09] MEDS: QUETIAPINE FUMARATE 25 MG TABLET PO SCH ×2 (22:00→22:07)
[2023-07-10] VITALS: BP 124/75; TEMP 99.4
[2023-07-10] MEDS: MORPHINE SULFATE INJ 2 MG/ML DISP.SYRIN IV PRN ×5 (00:43→20:07)
[2023-07-10] MEDS: IV LR 1000 ML 1,000 ML IV SCH ×2 (03:45→10:21)
[2023-07-10] MEDS: PANTOPRAZOLE 40 MG TABLET.DR PO SCH (07:47)
[2023-07-10 08:00] VITALS: BP 154/90; TEMP 98; O2SAT 95
[2023-07-10] MEDS: LISINOPRIL (10MG) 10 MG TABLET PO SCH (08:53)
[2023-07-10] MEDS: AMLODIPINE BESYLATE 10 MG TABLET PO SCH (08:53)
[2023-07-10] MEDS: CHLORDIAZEPOXIDE HCL 25 MG CAPSULE PO SCH (08:53)
[2023-07-10] MEDS: SERTRALINE HCL 50 MG TABLET PO SCH (08:54)
[2023-07-10] MEDS: THIAMINE HCL 100 MG TABLET PO SCH (08:54)
[2023-07-10] MEDS: FOLIC ACID 1 MG TABLET PO SCH (08:54)
[2023-07-10 16:00] VITALS: BP 148/95; TEMP 98.5; O2SAT 97
[2023-07-10] MEDS: QUETIAPINE FUMARATE 25 MG TABLET PO SCH ×2 (21:40→22:00)
[2023-07-10] MEDS: LORAZEPAM INJ 2 MG/ML VIAL IV PRN (22:42)
[2023-07-11] VITALS: BP 109/61; TEMP 98.3; O2SAT 98
[2023-07-11 08:00] VITALS: BP 157/97; TEMP 98.2; O2SAT 98
[2023-07-11] MEDS: PANTOPRAZOLE 40 MG TABLET.DR PO SCH (09:27)
[2023-07-11] MEDS: FOLIC ACID 1 MG TABLET PO SCH (09:27)
[2023-07-11] MEDS: AMLODIPINE BESYLATE 10 MG TABLET PO SCH (09:28)
[2023-07-11] MEDS: LISINOPRIL (10MG) 10 MG TABLET PO SCH (09:29)
[2023-07-11] MEDS: THIAMINE HCL 100 MG TABLET PO SCH (09:29)
[2023-07-11] MEDS: SERTRALINE HCL 50 MG TABLET PO SCH (09:29)
[2023-07-11] MEDS: MORPHINE SULFATE INJ 2 MG/ML DISP.SYRIN IV PRN ×3 (09:44→21:26)
[2023-07-11] MEDS: LORAZEPAM INJ 2 MG/ML VIAL IV PRN (10:55)
[2023-07-11 16:00] VITALS: BP 129/72; TEMP 98.1; O2SAT 98
[2023-07-11 20:00] VITALS: BP 133/92; TEMP 98
[2023-07-11] MEDS: QUETIAPINE FUMARATE 25 MG TABLET PO SCH (21:20)
[2023-07-12] MEDS: LORAZEPAM INJ 2 MG/ML VIAL IV PRN (00:42)
[2023-07-12] MEDS: MORPHINE SULFATE INJ 2 MG/ML DISP.SYRIN IV PRN ×3 (01:39→14:52)
[2023-07-12 04:00] VITALS: BP 142/70; TEMP 98.5; O2SAT 96
[2023-07-12 07:30] VITALS: BP 141/83; TEMP 98; O2SAT 97
[2023-07-12 08:00] VITALS: BP 109/65; TEMP 98.1; O2SAT 95
[2023-07-12 08:33] VITALS: BP 141/83; TEMP 98; O2SAT 97
[2023-07-12] MEDS: PANTOPRAZOLE 40 MG TABLET.DR PO SCH (08:56)
[2023-07-12] MEDS: FOLIC ACID 1 MG TABLET PO SCH (08:56)
[2023-07-12] MEDS: LISINOPRIL (10MG) 10 MG TABLET PO SCH (08:56)
[2023-07-12] MEDS: THIAMINE HCL 100 MG TABLET PO SCH (08:56)
[2023-07-12] MEDS: AMLODIPINE BESYLATE 10 MG TABLET PO SCH (08:57)
[2023-07-12] MEDS: SERTRALINE HCL 50 MG TABLET PO SCH (08:57)
[2023-07-12] MEDS ORDERED: Folic Acid PO (10:05)
[2023-07-12] MEDS ORDERED: Thiamine HCL PO (10:05)
[2023-07-12 14:50] LABS: CALCIUM, SERUM 9.1 mg/dL (8.5-10.1); CREATININE 0.7 mg/dL (0.6-1.3); MAGNESIUM 1.9 mg/dL (1.8-2.4); POTASSIUM 4.4 mmol/L (3.5-5.1)
[2023-07-12 16:00] VITALS: BP 133/83; TEMP 97.7; O2SAT 92
== END 2023-07-12 17:15 | disposition home or self-care (01) | DRG 422 ==
LOC: ER 21:02 → MERGE 07-08 04:34 → TRANSITION 07-08 04:34 → MEDSG1 07-08 07:41
PROVIDERS: ADMIT Internal Medicine; ATTEND Internal Medicine
DX: E86.0 Dehydration (principal); K85.90 Acute pancreatitis without necrosis or infection, unspecified; D61.818 Other pancytopenia; F25.0 Schizoaffective disorder, bipolar type; F10.129 Alcohol abuse with intoxication, unspecified; B35.1 Tinea unguium; E87.6 Hypokalemia; F10.139 Alcohol abuse with withdrawal, unspecified; Y90.8 Blood alcohol level of 240 mg/100 ml or more; J44.9 Chronic obstructive pulmonary disease, unspecified; I10 Essential (primary) hypertension; Z79.899 Other long term (current) drug therapy; Z59.00 Homelessness unspecified; S90.121A Contusion of right lesser toe(s) without damage to nail, initial encounter; X58.XXXA Exposure to other specified factors, initial encounter; Y92.9 Unspecified place or not applicable; R60.9 Edema, unspecified; F17.200 Nicotine dependence, unspecified, uncomplicated; M92.71 Juvenile osteochondrosis of metatarsus, right foot
CPT/HCPCS: 36415; 73630-TC; 76700-TC; 80048-TC; 80053-TC; 80061-TC; 80076-TC; 82010-TC; 82962-TC; 83690-TC; 83735-TC; 84100-TC; 85025-TC; G0378; G0480; J2060; J2270; J2405; J7030; J7050; J7120

== ENCOUNTER 2023-08-12 22:23 | Inpatient (IN) | payer OTHER ==
[~2023-08-12] VITALS: Ht 177.8 cm; Wt 93.0 kg
[~2023-08-12 22:23] MED LIST changes: -FOLI0.8C PO; +Folic Acid PO; -LORA-259 PO; -ONDA-97 PO; -PANT40TA49 PO; -THIA100T88 PO; +Thiamine HCL PO
[2023-08-12] MEDS ORDERED: FAMOTIDINE/PF INJ 20 MG/2 ML VIAL IV ONE ×2 (23:00→23:01)
[2023-08-12] MEDS ORDERED: IV NS 0.9% 1,000 ML BAG IV ONE (23:00)
[2023-08-12] MEDS ORDERED: ONDANSETRON HCL/PF 4 MG/2 ML VIAL IVP ONE (23:00)
[2023-08-12] MEDS ORDERED: ONDANSETRON HCL/PF 4 MG/2 ML VIAL ONE (23:01)
[2023-08-12 23:58] LABS: BASOPHILS # (AUTO) 0.1 K/uL (0.0-0.2); BASOPHILS % (AUTO) 2.2 % (0.0-2.0); EOSINOPHILS # (AUTO) 0.1 K/uL (0.0-0.7); EOSINOPHILS % (AUTO) 1.7 % (0.0-6.0); HEMATOCRIT 39 % (39-51); LYMPHOCYTES # (AUTO) 1.4 K/uL (0.8-4.8); LYMPHOCYTES % (AUTO) 35.8 % (20.0-44.0); MEAN CORPUSCULAR HEMOGLOBIN 32 PG (26.0-33.0); MEAN CORPUSCULAR HGB CONC 33 g/dl (31.0-36.0); MEAN CORPUSCULAR VOLUME 96 fL (80-96); MONOCYTES # (AUTO) 0.2 K/uL (0.1-1.30); NEUTROPHILS # (AUTO) 2.1 K/uL (1.8-8.9); NEUTROPHILS % (AUTO) 54.3 % (43.0-81.0); PLATELET COUNT (AUTO) 281 K/uL (150-450); RED BLOOD CELL COUNT(AUTO) 4.12 MIL/uL (4.5-6.0); RED CELL DISTRIBUTION WIDTH 16.9 % (11.5-15.0); WHITE BLOOD COUNT (AUTO) 3.9 K/uL (4.3-11.0)
[2023-08-13 00:15] LABS: CREATININE 0.7 mg/dL (0.6-1.3); POTASSIUM 3.6 mmol/L (3.5-5.1)
[2023-08-13 00:36] LABS: SALICYLATE 4.2 mg/dL (2.8-20.0)
[2023-08-13 00:58] LABS: ALBUMIN 3.8 g/dL (3.4-5.0); BILIRUBIN,DIRECT 0.2 mg/dL (0.0-0.2); BILIRUBIN,TOTAL 0.5 mg/dL (0.2-1.0); TOTAL PROTEIN, SERUM 7.8 g/dL (6.4-8.2)
[2023-08-13 02:39] LABS: AMPHETAMINE, URINE NEGATIVE (NEGATIVE); BARBITURATE, URINE NEGATIVE (NEGATIVE); BENZODIAZEPINE, URINE NEGATIVE (NEGATIVE); CANNABINOID, URINE NEGATIVE (NEGATIVE); COCCAINE, URINE NEGATIVE (NEGATIVE); OPIATE, URINE NEGATIVE (NEGATIVE); PHENCYCLIDINE SCREEN,URINE NEGATIVE (NEGATIVE)
[2023-08-13 02:46] LABS: APPEARANCE,URINE CLEAR (CLEAR); BILIRUBIN,URINE NEGATIVE (NEGATIVE); BLOOD, URINE NEGATIVE Ery/uL (NEGATIVE); COLOR,URINE YELLOW (YELLOW); KETONES,URINE NEGATIVE (NEGATIVE); LEUKOCYTE ESTERASE ,URINE NEGATIVE (NEGATIVE); NITRITE, URINE NEGATIVE (NEGATIVE); PH,URINE 7.5 (5.0-8.0); PROTEIN,URINE NEGATIVE (NEGATIVE); UGLUCOSE NEGATIVE (NEGATIVE)
[2023-08-13] MEDS ORDERED: MAG HYDROX/AL HYDROX/SIMETH 30 ML UDC ONE (11:49)
[2023-08-13] MEDS ORDERED: MAG HYDROX/AL HYDROX/SIMETH 30 ML UDC PO ONE (12:00)
[2023-08-13] MEDS ORDERED: ONDANSETRON HCL/PF 4 MG/2 ML VIAL ONE (16:56)
[2023-08-13] MEDS ORDERED: MORPHINE SULFATE INJ 4 MG/ML DISP.SYRIN ONE (16:56)
[2023-08-13] MEDS ORDERED: IV NS 0.9% 1,000 ML BAG IV ONE (17:00)
[2023-08-13] MEDS ORDERED: ONDANSETRON HCL/PF 4 MG/2 ML VIAL IVP ONE (17:00)
[2023-08-13] MEDS ORDERED: MORPHINE SULFATE INJ 2 MG/ML DISP.SYRIN IV ONE (17:00)
[2023-08-13] MEDS ORDERED: IOHEXOL-300 100 ML VIAL IV ONE ×2 (17:56→21:15)
[2023-08-13] MEDS ORDERED: IV NS 0.9% 250 ML IV ONE ×2 (17:56→21:17)
[2023-08-13] MEDS ORDERED: LORAZEPAM INJ 2 MG/ML VIAL ONE ×2 (18:12→22:53)
[2023-08-13] MEDS ORDERED: LORAZEPAM INJ 2 MG/ML VIAL IV ONE ×2 (18:30→23:00)
[2023-08-13] MEDS ORDERED: FAMOTIDINE/PF INJ 20 MG/2 ML VIAL IV ONE ×2 (21:30→21:42)
[2023-08-13] MEDS ORDERED: KETOROLAC TROMETHAMINE INJ 30 MG/ML VIAL ONE (22:52)
[2023-08-13] MEDS ORDERED: KETOROLAC TROMETHAMINE INJ 30 MG/ML VIAL IV ONE (23:00)
[2023-08-14] MEDS ORDERED: LORAZEPAM INJ 2 MG/ML VIAL IV PRN (00:30)
[2023-08-14] MEDS ORDERED: ACETAMINOPHEN 325 MG TABLET PO PRN (00:30)
[2023-08-14] MEDS ORDERED: IV NS 0.9% 1,000 ML IV SCH (00:30)
[2023-08-14] MEDS ORDERED: ONDANSETRON HCL/PF 4 MG/2 ML VIAL IVP PRN (00:30)
[2023-08-14 08:00] VITALS: BP 138/82; TEMP 98.2; O2SAT 98
[2023-08-14] MEDS: THIAMINE HCL 100 MG TABLET PO SCH (08:50)
[2023-08-14] MEDS: CHLORDIAZEPOXIDE HCL 25 MG CAPSULE PO SCH ×3 (08:50→16:06)
[2023-08-14] MEDS: SERTRALINE HCL 50 MG TABLET PO SCH (08:50)
[2023-08-14] MEDS: FOLIC ACID 1 MG TABLET PO SCH (08:50)
[2023-08-14] MEDS: AMLODIPINE BESYLATE 10 MG TABLET PO SCH (08:51)
[2023-08-14] MEDS: LISINOPRIL (10MG) 10 MG TABLET PO SCH (08:51)
[2023-08-14] MEDS: ENOXAPARIN SODIUM 40 MG/0.4 ML DISP.SYRIN SQ SCH (08:52)
[2023-08-14] MEDS: MORPHINE SULFATE INJ 2 MG/ML DISP.SYRIN IV PRN ×3 (10:39→21:19)
[2023-08-14 16:00] VITALS: BP 154/90; TEMP 99.5; O2SAT 94
[2023-08-14] MEDS: IV NS 0.9% 1,000 ML IV PRN (16:38)
[2023-08-14 20:00] VITALS: BP 157/95; TEMP 98.6; O2SAT 98
[2023-08-14] MEDS: QUETIAPINE FUMARATE 25 MG TABLET PO SCH ×2 (21:09→21:30)
[2023-08-14 21:52] VITALS: BP 157/95; TEMP 98.6; O2SAT 98
[2023-08-15] VITALS: BP 158/96; TEMP 98.1; O2SAT 97
[2023-08-15] MEDS: MORPHINE SULFATE INJ 2 MG/ML DISP.SYRIN IV PRN ×5 (02:02→22:24)
[2023-08-15 04:00] VITALS: BP 152/94; TEMP 98.1; O2SAT 97
[2023-08-15] MEDS: IV NS 0.9% 1,000 ML IV PRN ×2 (05:26→18:11)
[2023-08-15 06:15] LABS: BASOPHILS % (AUTO) 0.6 % (0.0-2.0); EOSINOPHILS # (AUTO) 0.2 K/uL (0.0-0.7); EOSINOPHILS % (AUTO) 2.6 % (0.0-6.0); HEMATOCRIT 42 % (39-51); HEMOGLOBIN 13.7 g/dL (13.5-17.5); LYMPHOCYTES # (AUTO) 1.1 K/uL (0.8-4.8); LYMPHOCYTES % (AUTO) 17.8 % (20.0-44.0); MEAN CORPUSCULAR HEMOGLOBIN 31 PG (26.0-33.0); MEAN CORPUSCULAR HGB CONC 33 g/dl (31.0-36.0); MEAN CORPUSCULAR VOLUME 96 fL (80-96); MONOCYTES # (AUTO) 0.5 K/uL (0.1-1.30); MONOCYTES % (AUTO) 8.8 % (2.0-12.0); NEUTROPHILS # (AUTO) 4.2 K/uL (1.8-8.9); NEUTROPHILS % (AUTO) 70.2 % (43.0-81.0); PLATELET COUNT (AUTO) 173 K/uL (150-450); RED BLOOD CELL COUNT(AUTO) 4.37 MIL/uL (4.5-6.0); RED CELL DISTRIBUTION WIDTH 15.8 % (11.5-15.0)
[2023-08-15 06:30] LABS: ALBUMIN 3.6 g/dL (3.4-5.0); BILIRUBIN,TOTAL 1.1 mg/dL (0.2-1.0); CALCIUM, SERUM 9.2 mg/dL (8.5-10.1); CREATININE 0.8 mg/dL (0.6-1.3); PHOSPHORUS 3.7 mg/dL (2.5-4.9); POTASSIUM 3.7 mmol/L (3.5-5.1); TOTAL PROTEIN, SERUM 7.8 g/dL (6.4-8.2)
[2023-08-15 07:00] VITALS: BP 163/100; TEMP 98.4; O2SAT 95
[2023-08-15] MEDS: THIAMINE HCL 100 MG TABLET PO SCH (08:04)
[2023-08-15] MEDS: FOLIC ACID 1 MG TABLET PO SCH (08:04)
[2023-08-15] MEDS: SERTRALINE HCL 50 MG TABLET PO SCH (08:04)
[2023-08-15] MEDS: LISINOPRIL (10MG) 10 MG TABLET PO SCH (08:05)
[2023-08-15] MEDS: AMLODIPINE BESYLATE 10 MG TABLET PO SCH (08:05)
[2023-08-15] MEDS: ENOXAPARIN SODIUM 40 MG/0.4 ML DISP.SYRIN SQ SCH (08:06)
[2023-08-15 12:10] VITALS: BP 161/95; TEMP 98.6; O2SAT 96
[2023-08-15] MEDS: LISINOPRIL (20MG) 20 MG TABLET PO SCH (14:08)
[2023-08-15] MEDS: hydrALAZINE HCL IV 20 MG VIAL IV PRN (15:58)
[2023-08-15 16:00] VITALS: BP 163/95; TEMP 98.4; O2SAT 96
[2023-08-15 20:00] VITALS: BP 144/72; TEMP 98.8; O2SAT 98
[2023-08-15] MEDS: QUETIAPINE FUMARATE 25 MG TABLET PO SCH (22:00)
[2023-08-16] VITALS (7 sets, daily range): BP systolic 142–160; BP diastolic 85–107; TEMP 98.1–99; O2SAT 96–99
[2023-08-16] MEDS: MORPHINE SULFATE INJ 2 MG/ML DISP.SYRIN IV PRN ×5 (02:26→19:45)
[2023-08-16] MEDS: hydrALAZINE HCL IV 20 MG VIAL IV PRN ×2 (06:49→20:57)
[2023-08-16] MEDS: SERTRALINE HCL 50 MG TABLET PO SCH (08:24)
[2023-08-16] MEDS: ENOXAPARIN SODIUM 40 MG/0.4 ML DISP.SYRIN SQ SCH (08:24)
[2023-08-16] MEDS: THIAMINE HCL 100 MG TABLET PO SCH (08:25)
[2023-08-16] MEDS: LISINOPRIL (20MG) 20 MG TABLET PO SCH (08:25)
[2023-08-16] MEDS: FOLIC ACID 1 MG TABLET PO SCH (08:25)
[2023-08-16] MEDS: AMLODIPINE BESYLATE 10 MG TABLET PO SCH (08:25)
[2023-08-16] MEDS: IV NS 0.9% 1,000 ML IV PRN (09:33)
[2023-08-16] MEDS ORDERED: HYDR-4076 PO (13:51)
[2023-08-16] MEDS ORDERED: Quetiapine Fumarate PO (13:51)
[2023-08-16] MEDS ORDERED: LISI20TA30 PO (13:51)
[2023-08-16] MEDS: QUETIAPINE FUMARATE 25 MG TABLET PO SCH (22:00)
== END 2023-08-16 23:49 | DRG 241 ==
LOC: ER 22:41 → TELE 08-14 07:48
PROVIDERS: ADMIT Nurse Practitioner Acute Care; ATTEND Nurse Practitioner Acute Care
PROC: 05HB33Z Insertion of Infusion Device into Right Basilic Vein, Percutaneous Approach (ICD-10-PCS; principal; 2023-08-14)
DX: K29.20 Alcoholic gastritis without bleeding (principal); K74.60 Unspecified cirrhosis of liver; K86.0 Alcohol-induced chronic pancreatitis; Z59.00 Homelessness unspecified; I10 Essential (primary) hypertension; Y90.8 Blood alcohol level of 240 mg/100 ml or more; Z20.822 Contact with and (suspected) exposure to COVID-19; Z86.2 Personal history of diseases of the blood and blood-forming organs and certain disorders involving the immune mechanism; Z88.8 Allergy status to other drugs, medicaments and biological substances; Z91.018 Allergy to other foods; Z79.899 Other long term (current) drug therapy; F10.939 Alcohol use, unspecified with withdrawal, unspecified
CPT/HCPCS: 36415; 80048-TC; 80053-TC; 80076-TC; 83690-TC; 83735-TC; 84100-TC; 84484-TC; 85025-TC; 87081-TC; G0378; G0480; J0360; J1650; J1885; J2060; J2270; J2405; J3490; J7030; J7050; Q9967

== ENCOUNTER 2023-09-05 21:52 | Emergency (ER) | payer OTHER ==
[~2023-09-05] VITALS: Ht 195.6 cm; Wt 74.8 kg
[~2023-09-05 21:52] MED LIST changes: -AMLO5TAB4 PO; -CLON0.1T PO; -Folic Acid PO; +HYDR-4076 PO; -HYDR-4354 PO; -LISI10TA29 PO; +LISI20TA30 PO; -NIFE60TA72 PO; -QUET25TA PO; +Quetiapine Fumarate PO; -SERT100T PO; -SERT100T12 PO; -Thiamine HCL PO
[2023-09-05 21:55] VITALS: TEMP 98
[2023-09-05 23:14] LABS: BASOPHILS # (AUTO) 0.1 K/uL (0.0-0.2); BASOPHILS % (AUTO) 1.7 % (0.0-2.0); EOSINOPHILS % (AUTO) 0.5 % (0.0-6.0); HEMATOCRIT 37 % (39-51); HEMOGLOBIN 12.2 g/dL (13.5-17.5); LYMPHOCYTES # (AUTO) 1.4 K/uL (0.8-4.8); LYMPHOCYTES % (AUTO) 30.7 % (20.0-44.0); MEAN CORPUSCULAR HEMOGLOBIN 31 PG (26.0-33.0); MEAN CORPUSCULAR HGB CONC 33 g/dl (31.0-36.0); MEAN CORPUSCULAR VOLUME 94 fL (80-96); MONOCYTES # (AUTO) 0.2 K/uL (0.1-1.30); MONOCYTES % (AUTO) 4.9 % (2.0-12.0); NEUTROPHILS # (AUTO) 2.8 K/uL (1.8-8.9); NEUTROPHILS % (AUTO) 62.2 % (43.0-81.0); PLATELET COUNT (AUTO) 188 K/uL (150-450); RED BLOOD CELL COUNT(AUTO) 3.95 MIL/uL (4.5-6.0); RED CELL DISTRIBUTION WIDTH 16.9 % (11.5-15.0); WHITE BLOOD COUNT (AUTO) 4.5 K/uL (4.3-11.0)
[2023-09-05 23:28] LABS: ALANINE AMINOTRANSFERASE 33 U/L (12-78); ALBUMIN 3.3 g/dL (3.4-5.0); ALKALINE PHOSPHATASE 128 U/L (46-116); ASPARTATE AMINOTRANSFERASE 34 U/L (15-37); BILIRUBIN,DIRECT 0.2 mg/dL (0.0-0.2); BILIRUBIN,TOTAL 0.5 mg/dL (0.2-1.0); CALCIUM, SERUM 8.6 mg/dL (8.5-10.1); CARBON DIOXIDE 27 mmol/L (21-32); CHLORIDE 108 mmol/L (98-107); CREATININE 0.9 mg/dL (0.6-1.3); GLUCOSE 97 mg/dL (74-106); POTASSIUM 3.4 mmol/L (3.5-5.1); SODIUM SERUM 147 mmol/L (136-145); TOTAL PROTEIN, SERUM 7.1 g/dL (6.4-8.2); UREA NITROGEN, BLOOD 4 mg/dL (7-18)
[2023-09-05 23:30] LABS: ACETAMINOPHEN <10 ug/ml (10-30); SALICYLATE 1.8 mg/dL (2.8-20.0)
[2023-09-05 23:31] LABS: ALCOHOL, BLOOD 446 mg/dL (0-10)
[2023-09-05 23:35] LABS: APPEARANCE,URINE CLEAR (CLEAR); BILIRUBIN,URINE NEGATIVE (NEGATIVE); BLOOD, URINE NEGATIVE Ery/uL (NEGATIVE); COLOR,URINE YELLOW (YELLOW); KETONES,URINE NEGATIVE (NEGATIVE); LEUKOCYTE ESTERASE ,URINE NEGATIVE (NEGATIVE); NITRITE, URINE NEGATIVE (NEGATIVE); PROTEIN,URINE NEGATIVE (NEGATIVE); UGLUCOSE NEGATIVE (NEGATIVE); UROBILINOGEN,URINE 0.2 EU/dL (0.2)
[2023-09-05 23:43] LABS: AMPHETAMINE, URINE NEGATIVE (NEGATIVE); BARBITURATE, URINE NEGATIVE (NEGATIVE); BENZODIAZEPINE, URINE NEGATIVE (NEGATIVE); CANNABINOID, URINE NEGATIVE (NEGATIVE); COCCAINE, URINE NEGATIVE (NEGATIVE); OPIATE, URINE NEGATIVE (NEGATIVE); PHENCYCLIDINE SCREEN,URINE NEGATIVE (NEGATIVE)
[2023-09-06] MEDS ORDERED: LORAZEPAM INJ 2 MG/ML VIAL IM ONE (17:00)
[2023-09-06] MEDS ORDERED: ONDANSETRON 4 MG TAB.RAPDIS SL ONE (17:00)
[2023-09-06] MEDS ORDERED: LORAZEPAM INJ 2 MG/ML VIAL ONE (17:02)
[2023-09-06] MEDS ORDERED: ONDANSETRON 4 MG TAB.RAPDIS ONE (17:02)
[2023-09-06] MEDS ORDERED: MAG HYDROX/AL HYDROX/SIMETH 30 ML UDC ONE (21:21)
[2023-09-06] MEDS ORDERED: LIDOCAINE VISCOUS 2% UD 15 ML UDC ONE (21:22)
[2023-09-06] MEDS ORDERED: LIDOCAINE VISCOUS 2% UD 15 ML UDC MM ONE (21:30)
[2023-09-06] MEDS ORDERED: MAG HYDROX/AL HYDROX/SIMETH 30 ML UDC PO ONE (21:30)
[2023-09-07] MEDS ORDERED: CLONIDINE HCL 0.1 MG TABLET ONE (00:56)
[2023-09-07] MEDS ORDERED: CLONIDINE HCL 0.1 MG TABLET PO ONE (01:00)
[2023-09-07 01:09] VITALS: BP 171/84; O2SAT 98
== END 2023-09-07 01:35 ==
LOC: ER 21:53
DX: F10.129 Alcohol abuse with intoxication, unspecified (principal); I10 Essential (primary) hypertension; Z79.899 Other long term (current) drug therapy; Z20.822 Contact with and (suspected) exposure to COVID-19; Z59.00 Homelessness unspecified; Z88.1 Allergy status to other antibiotic agents; Y90.8 Blood alcohol level of 240 mg/100 ml or more
CPT/HCPCS: 99285; 85025; 80048; 80076; 81003; 36415; 80143; 80320; 80307; 96372; J2060; Q0162; C9803; G0480

== ENCOUNTER 2023-09-16 20:43 | Emergency (ER) | payer OTHER | END 2023-09-16 22:45 | disposition left against medical advice (07) | LOC: ER 20:54 | DX: T40.601A Poisoning by unspecified narcotics, accidental (unintentional), initial encounter (principal); R45.1 Restlessness and agitation; I10 Essential (primary) hypertension; Z91.018 Allergy to other foods; Z88.8 Allergy status to other drugs, medicaments and biological substances; Z59.00 Homelessness unspecified; Y92.89 Other specified places as the place of occurrence of the external cause ==

== ENCOUNTER 2024-03-25 21:05 | Emergency (ER) | payer OTHER ==
[~2024-03-25] VITALS: Ht 175.3 cm; Wt 90.7 kg
[2024-03-25] MEDS ORDERED: KETOROLAC TROMETHAMINE INJ 30 MG/ML VIAL ONE (21:29)
[2024-03-25] MEDS: KETOROLAC TROMETHAMINE INJ 30 MG/ML VIAL IV ONE (21:57)
[2024-03-25 22:01] LABS: BASOPHILS % (AUTO) 0.8 % (0.0-2.0); EOSINOPHILS % (AUTO) 0.5 % (0.0-6.0); HEMATOCRIT 38 % (39-51); HEMOGLOBIN 12.4 g/dL (13.5-17.5); LYMPHOCYTES # (AUTO) 0.9 K/uL (0.8-4.8); LYMPHOCYTES % (AUTO) 24.9 % (20.0-44.0); MEAN CORPUSCULAR HEMOGLOBIN 31 PG (26.0-33.0); MEAN CORPUSCULAR HGB CONC 33 g/dl (31.0-36.0); MEAN CORPUSCULAR VOLUME 96 fL (80-96); MONOCYTES # (AUTO) 0.5 K/uL (0.1-1.30); NEUTROPHILS # (AUTO) 2.1 K/uL (1.8-8.9); NEUTROPHILS % (AUTO) 59.8 % (43.0-81.0); PLATELET COUNT (AUTO) 152 K/uL (150-450); RED BLOOD CELL COUNT(AUTO) 3.97 MIL/uL (4.5-6.0); RED CELL DISTRIBUTION WIDTH 15.6 % (11.5-15.0); WHITE BLOOD COUNT (AUTO) 3.5 K/uL (4.3-11.0)
[2024-03-25 22:09] LABS: APPEARANCE,URINE CLEAR (CLEAR); BILIRUBIN,URINE NEGATIVE (NEGATIVE); BLOOD, URINE TRACE-INTA Ery/uL (NEGATIVE); COLOR,URINE YELLOW (YELLOW); KETONES,URINE NEGATIVE (NEGATIVE); LEUKOCYTE ESTERASE ,URINE NEGATIVE (NEGATIVE); NITRITE, URINE NEGATIVE (NEGATIVE); PH,URINE 6.5 (5.0-8.0); PROTEIN,URINE NEGATIVE (NEGATIVE); UGLUCOSE NEGATIVE (NEGATIVE); UROBILINOGEN,URINE 0.2 EU/dL (0.2)
[2024-03-25 22:22] LABS: ALANINE AMINOTRANSFERASE 111 U/L (12-78); ALBUMIN 3.5 g/dL (3.4-5.0); ALCOHOL, BLOOD 369 mg/dL (0-10); ALKALINE PHOSPHATASE 148 U/L (46-116); ASPARTATE AMINOTRANSFERASE 137 U/L (15-37); BILIRUBIN,TOTAL 0.4 mg/dL (0.2-1.0); CARBON DIOXIDE 32 mmol/L (21-32); CHLORIDE 107 mmol/L (98-107); CREATININE 0.8 mg/dL (0.6-1.3); GLUCOSE 101 mg/dL (74-106); LIPASE 66 U/L (16-77); POTASSIUM 3.6 mmol/L (3.5-5.1); SODIUM SERUM 146 mmol/L (136-145); TOTAL PROTEIN, SERUM 7.6 g/dL (6.4-8.2); UREA NITROGEN, BLOOD 7 mg/dL (7-18)
[2024-03-25 22:29] LABS: LACTIC ACID 2.4 mmol/L (0.4-2.0)
[2024-03-25 22:31] LABS: ADD URINE CULTURE NO; BACTERIA,URINE None seen /HPF (None Seen); RBC,URINE NONE SEEN /HPF (0-2); SQUAMOUS EPITHELIAL CELL,UR Rare /HPF (None Seen); WBC,URINE NONE SEEN /HPF (0-3)
[2024-03-25 22:35] LABS: AMPHETAMINE, URINE NEGATIVE (NEGATIVE); BARBITURATE, URINE NEGATIVE (NEGATIVE); BENZODIAZEPINE, URINE NEGATIVE (NEGATIVE); CANNABINOID, URINE NEGATIVE (NEGATIVE); COCCAINE, URINE NEGATIVE (NEGATIVE); OPIATE, URINE NEGATIVE (NEGATIVE); PHENCYCLIDINE SCREEN,URINE NEGATIVE (NEGATIVE)
[2024-03-25] MEDS: IV NS 0.9% 1,000 ML IV ONE ×2 (22:50→22:51)
[2024-03-26 00:58] VITALS: BP 153/89; TEMP 98.6; O2SAT 98
[2024-03-26 01:14] LABS: LACTIC ACID REFLEX 2.3 mmol/L (0.4-1.9)
[2024-03-26 01:20] LABS: BILIRUBIN,DIRECT 0.2 mg/dL (0.0-0.2)
== END 2024-03-26 01:12 | disposition home or self-care (01) ==
LOC: ER 21:20
DX: R10.84 Generalized abdominal pain (principal); F10.129 Alcohol abuse with intoxication, unspecified; I10 Essential (primary) hypertension; Z88.8 Allergy status to other drugs, medicaments and biological substances; Z91.018 Allergy to other foods; Z59.00 Homelessness unspecified; Z79.899 Other long term (current) drug therapy; Y90.8 Blood alcohol level of 240 mg/100 ml or more
CPT/HCPCS: 99285; 96374; 96361; 74176; 85025; 87040 ×2; 83605 ×2; 83690; 81001; 36415 ×2; 80053; 80320; 80307; 82248; J1885; J7030; G0480

== ENCOUNTER 2024-07-02 18:42 | Emergency (ER) | payer OTHER ==
[~2024-07-02] VITALS: Ht 177.8 cm; Wt 83.9 kg
[2024-07-02 19:16] VITALS: BP 131/76; TEMP 98.5; O2SAT 99
== END 2024-07-02 19:45 | disposition left against medical advice (07) ==
LOC: ER 18:53
DX: R69 Illness, unspecified (principal); Z53.21 Procedure and treatment not carried out due to patient leaving prior to being seen by health care provider

== ENCOUNTER 2024-08-10 05:08 | Emergency (ER) | payer OTHER ==
[~2024-08-10] VITALS: Ht 180.3 cm; Wt 83.9 kg
[2024-08-10] MEDS ORDERED: MAG HYDROX/AL HYDROX/SIMETH 30 ML UDC ONE (06:53)
[2024-08-10] MEDS ORDERED: HYDROCODONE/APAP 5/325MG TABLET ONE (06:53)
[2024-08-10] MEDS ORDERED: LIDOCAINE 5% (PATCH) 1 EA PATCH TP ONE (06:53)
[2024-08-10] MEDS ORDERED: LIDOCAINE VISCOUS 2% UD 15 ML UDC ONE (06:53)
[2024-08-10] MEDS ORDERED: FAMOTIDINE (20 MG) 20 MG TABLET ONE (06:54)
[2024-08-10] MEDS ORDERED: CYCLOBENZAPRINE 10 MG TABLET ONE (06:54)
[2024-08-10] MEDS: HYDROCODONE/APAP 5/325MG TABLET PO ONE (06:54)
[2024-08-10] MEDS: CYCLOBENZAPRINE 10 MG TABLET PO ONE (06:55)
[2024-08-10] MEDS: MAG HYDROX/AL HYDROX/SIMETH 30 ML UDC PO ONE (06:55)
[2024-08-10] MEDS: FAMOTIDINE (20 MG) 20 MG TABLET PO ONE (06:55)
[2024-08-10] MEDS: LIDOCAINE VISCOUS 2% UD 15 ML UDC MM ONE (06:55)
[2024-08-10] MEDS: LIDOCAINE 5% (PATCH) 1 EA PATCH TP STA (06:55)
[2024-08-10] MEDS ORDERED: FAMO-131 PO (07:13)
[2024-08-10] MEDS ORDERED: LIDO30AD10 TP (07:13)
[2024-08-10] MEDS ORDERED: ACET-2605 PO (07:13)
[2024-08-10 07:30] VITALS: BP 157/92; TEMP 98.6; O2SAT 98
[2024-08-10 08:39] LABS: EOSINOPHILS # (AUTO) 0.1 K/uL (0.0-0.7); EOSINOPHILS % (AUTO) 2.1 % (0.0-6.0); HEMATOCRIT 44 % (39-51); HEMOGLOBIN 14.2 g/dL (13.5-17.5); LYMPHOCYTES # (AUTO) 1.4 K/uL (0.8-4.8); MEAN CORPUSCULAR HEMOGLOBIN 30 PG (26.0-33.0); MEAN CORPUSCULAR HGB CONC 33 g/dl (31.0-36.0); MEAN CORPUSCULAR VOLUME 93 fL (80-96); MONOCYTES # (AUTO) 0.4 K/uL (0.1-1.30); MONOCYTES % (AUTO) 8.8 % (2.0-12.0); NEUTROPHILS # (AUTO) 2.8 K/uL (1.8-8.9); NEUTROPHILS % (AUTO) 58.1 % (43.0-81.0); PLATELET COUNT (AUTO) 280 K/uL (150-450); RED CELL DISTRIBUTION WIDTH 16.1 % (11.5-15.0); WHITE BLOOD COUNT (AUTO) 4.8 K/uL (4.3-11.0)
[2024-08-10 08:47] LABS: CALCIUM, SERUM 9.2 mg/dL (8.5-10.1); CREATININE 0.8 mg/dL (0.6-1.3); POTASSIUM 3.5 mmol/L (3.5-5.1)
[2024-08-10 08:53] LABS: ALBUMIN 4.3 g/dL (3.4-5.0); BILIRUBIN,DIRECT 0.1 mg/dL (0.0-0.2); BILIRUBIN,TOTAL 0.8 mg/dL (0.2-1.0); TOTAL PROTEIN, SERUM 8.2 g/dL (6.4-8.2)
== END 2024-08-10 09:20 | disposition home or self-care (01) ==
LOC: ER 06:27
DX: K29.20 Alcoholic gastritis without bleeding (principal); F10.10 Alcohol abuse, uncomplicated; G89.29 Other chronic pain; R10.13 Epigastric pain; M54.2 Cervicalgia; I10 Essential (primary) hypertension; F32.A Depression, unspecified; F19.10 Other psychoactive substance abuse, uncomplicated; Z86.79 Personal history of other diseases of the circulatory system; Z88.8 Allergy status to other drugs, medicaments and biological substances; Z91.018 Allergy to other foods; Z59.00 Homelessness unspecified; Y90.3 Blood alcohol level of 60-79 mg/100 ml
CPT/HCPCS: 36415; 71045-TC; 80048-TC; 80076-TC; 83690-TC; 85025-TC; G0480

== ENCOUNTER 2024-08-19 22:40 | Emergency (ER) | payer OTHER ==
[~2024-08-19] VITALS: Ht 177.8 cm; Wt 90.7 kg
[~2024-08-19 22:40] MED LIST changes: +ACET-2605 PO; +FAMO-131 PO; +LIDO30AD10 TP
[2024-08-19 23:15] LABS: BASOPHILS % (AUTO) 0.5 % (0.0-2.0); EOSINOPHILS % (AUTO) 0.3 % (0.0-6.0); HEMATOCRIT 40 % (39-51); HEMOGLOBIN 13.1 g/dL (13.5-17.5); LYMPHOCYTES # (AUTO) 1.9 K/uL (0.8-4.8); LYMPHOCYTES % (AUTO) 34.6 % (20.0-44.0); MEAN CORPUSCULAR HEMOGLOBIN 31 PG (26.0-33.0); MEAN CORPUSCULAR HGB CONC 33 g/dl (31.0-36.0); MEAN CORPUSCULAR VOLUME 93 fL (80-96); MONOCYTES # (AUTO) 0.3 K/uL (0.1-1.30); MONOCYTES % (AUTO) 4.7 % (2.0-12.0); NEUTROPHILS # (AUTO) 3.3 K/uL (1.8-8.9); NEUTROPHILS % (AUTO) 59.9 % (43.0-81.0); PLATELET COUNT (AUTO) 233 K/uL (150-450); RED CELL DISTRIBUTION WIDTH 16.4 % (11.5-15.0); WHITE BLOOD COUNT (AUTO) 5.5 K/uL (4.3-11.0)
[2024-08-19 23:26] LABS: CALCIUM, SERUM 8.2 mg/dL (8.5-10.1); CREATININE 0.8 mg/dL (0.6-1.3); POTASSIUM 3.8 mmol/L (3.5-5.1)
[2024-08-19 23:29] LABS: CREATINE KINASE, TOTAL 809 U/L (39-308)
[2024-08-19 23:30] LABS: ALCOHOL, BLOOD 405 mg/dL (0-10)
[2024-08-19 23:32] LABS: ALBUMIN 3.6 g/dL (3.4-5.0); BILIRUBIN,DIRECT 0.1 mg/dL (0.0-0.2); BILIRUBIN,TOTAL 0.4 mg/dL (0.2-1.0); TOTAL PROTEIN, SERUM 7.2 g/dL (6.4-8.2)
[2024-08-20] MEDS ORDERED: ACETAMINOPHEN ES 500 MG TABLET ONE (00:40)
[2024-08-20] MEDS: ACETAMINOPHEN 325 MG TABLET PO ONE (00:45)
[2024-08-20 07:20] VITALS: BP 128/95; TEMP 98; O2SAT 97
== END 2024-08-20 07:21 | disposition home or self-care (01) ==
LOC: ER 22:49
DX: F10.129 Alcohol abuse with intoxication, unspecified (principal); R10.84 Generalized abdominal pain; M79.10 Myalgia, unspecified site; F20.9 Schizophrenia, unspecified; F31.9 Bipolar disorder, unspecified; F19.10 Other psychoactive substance abuse, uncomplicated; I10 Essential (primary) hypertension; Z86.79 Personal history of other diseases of the circulatory system; Z88.8 Allergy status to other drugs, medicaments and biological substances; Z91.018 Allergy to other foods; Z59.00 Homelessness unspecified; Z79.899 Other long term (current) drug therapy; Z20.822 Contact with and (suspected) exposure to COVID-19; Y90.8 Blood alcohol level of 240 mg/100 ml or more
CPT/HCPCS: 36415; 80048-TC; 80076-TC; 82550-TC; 82553; 83690-TC; 85025-TC; G0480

== ENCOUNTER 2024-09-08 06:50 | Emergency (ER) | payer OTHER ==
[~2024-09-08] VITALS: Ht 175.3 cm; Wt 83.9 kg
[2024-09-08] MEDS ORDERED: ONDANSETRON HCL/PF 4 MG/2 ML VIAL IVP ONE (07:00)
[2024-09-08] MEDS ORDERED: IV NS 0.9% 1,000 ML BAG IV ONE (07:00)
[2024-09-08] MEDS ORDERED: KETOROLAC TROMETHAMINE 15 MG/ML VIAL ONE (07:25)
[2024-09-08] MEDS ORDERED: HYDROCODONE/APAP 10/325MG TABLET ONE (07:25)
[2024-09-08] MEDS ORDERED: CYCLOBENZAPRINE 10 MG TABLET ONE (07:26)
[2024-09-08] MEDS: KETOROLAC TROMETHAMINE 15 MG/ML VIAL IM ONE (07:38)
[2024-09-08] MEDS: CYCLOBENZAPRINE 10 MG TABLET PO ONE (07:39)
[2024-09-08] MEDS: HYDROCODONE/APAP 10/325MG TABLET PO ONE (07:39)
[2024-09-08] MEDS ORDERED: NAPR-1009 PO (09:27)
[2024-09-08] MEDS ORDERED: ONDA4TAB5 PO (09:27)
[2024-09-08] MEDS ORDERED: CYCL5TAB PO (09:27)
[2024-09-08 10:11] VITALS: BP 122/80; TEMP 98; O2SAT 97
== END 2024-09-08 11:29 | disposition home or self-care (01) ==
LOC: ER 06:55
DX: G89.29 Other chronic pain (principal); M54.2 Cervicalgia; M54.59 Other low back pain; R10.13 Epigastric pain; R11.0 Nausea; I10 Essential (primary) hypertension; F32.A Depression, unspecified; F10.20 Alcohol dependence, uncomplicated; F19.10 Other psychoactive substance abuse, uncomplicated; Z59.00 Homelessness unspecified; Z79.899 Other long term (current) drug therapy; Z87.19 Personal history of other diseases of the digestive system; Z86.79 Personal history of other diseases of the circulatory system; Z91.018 Allergy to other foods
CPT/HCPCS: 99283; 96372; J1885

== ENCOUNTER 2024-11-11 22:10 | Inpatient (IN) | payer MEDICAID, OTHER ==
[~2024-11-11] VITALS: Ht 184.2 cm; Wt 99.8 kg
[~2024-11-11 22:10] MED LIST changes: +CYCL5TAB PO; +NAPR-1009 PO; +ONDA4TAB5 PO
[2024-11-12] MEDS: IV NS 0.9% 1,000 ML BAG IV ONE
[2024-11-12] MEDS: CEFTRIAXONE 1 G in IV D5W 50 ML IV ONE
[2024-11-12 01:08] LABS: BASOPHILS % (AUTO) 0.4 % (0.0-2.0); EOSINOPHILS % (AUTO) 0.5 % (0.0-6.0); HEMATOCRIT 34 % (39-51); HEMOGLOBIN 11.3 g/dL (13.5-17.5); LYMPHOCYTES % (AUTO) 10.7 % (20.0-44.0); MEAN CORPUSCULAR HEMOGLOBIN 30 PG (26.0-33.0); MEAN CORPUSCULAR HGB CONC 34 g/dl (31.0-36.0); MEAN CORPUSCULAR VOLUME 90 fL (80-96); MONOCYTES % (AUTO) 9.8 % (2.0-12.0); NEUTROPHILS % (AUTO) 78.6 % (43.0-81.0); PLATELET COUNT (AUTO) 109 K/uL (150-450); RED BLOOD CELL COUNT(AUTO) 3.72 MIL/uL (4.5-6.0); RED CELL DISTRIBUTION WIDTH 14.3 % (11.5-15.0); WHITE BLOOD COUNT (AUTO) 7.2 K/uL (4.3-11.0)
[2024-11-12 01:09] LABS: LYMPHOCYTES # (AUTO) 0.8 K/uL (0.8-4.8); MONOCYTES # (AUTO) 0.7 K/uL (0.1-1.30); NEUTROPHILS # (AUTO) 5.7 K/uL (1.8-8.9)
[2024-11-12 01:16] LABS: LACTIC ACID 0.9 mmol/L (0.4-2.0)
[2024-11-12 01:24] LABS: CALCIUM, SERUM 8.3 mg/dL (8.5-10.1); CREATININE 0.8 mg/dL (0.6-1.3); POTASSIUM 3.4 mmol/L (3.5-5.1)
[2024-11-12 01:30] LABS: BILIRUBIN,DIRECT 0.2 mg/dL (0.0-0.2); BILIRUBIN,TOTAL 0.6 mg/dL (0.2-1.0); TOTAL PROTEIN, SERUM 6.4 g/dL (6.4-8.2)
[2024-11-12] MEDS ORDERED: CEFTRIAXONE 1GM BAG (ER ONLY) 50 ML IV ONE (01:48)
[2024-11-12 03:40] LABS: LYMPHOCYTES % (MANUAL) 14 % (16-48); MONOCYTES % (MANUAL) 7 % (0-11.0); NEUTROPHILS % (MANUAL) 79 (42-76); PLATELET ESTIMATE DECREASED
[2024-11-12 03:53] LABS: APPEARANCE,URINE CLEAR (CLEAR); BILIRUBIN,URINE 1+ (NEGATIVE); BLOOD, URINE NEGATIVE Ery/uL (NEGATIVE); COLOR,URINE YELLOW (YELLOW); KETONES,URINE TRACE mg/dL (NEGATIVE); LEUKOCYTE ESTERASE ,URINE NEGATIVE (NEGATIVE); NITRITE, URINE POSITIVE (NEGATIVE); PH,URINE 6.5 (5.0-8.0); PROTEIN,URINE TRACE mg/dl (NEGATIVE); UGLUCOSE NEGATIVE (NEGATIVE)
[2024-11-12 04:38] LABS: RBC,URINE NONE SEEN /HPF (0-2); WBC,URINE NONE SEEN /HPF (0-3)
[2024-11-12 04:39] LABS: ADD URINE CULTURE YES; BACTERIA,URINE None seen /HPF (None Seen); MUCUS,URINE Moderate /LPF (None Seen); SQUAMOUS EPITHELIAL CELL,UR None Seen /HPF (None Seen)
[2024-11-12] MEDS ORDERED: ZOLPIDEM TARTRATE 5 MG TABLET PO PRN (06:00)
[2024-11-12] MEDS ORDERED: Z GUARD REMEDY 4 OZ OINT TP PRN (06:00)
[2024-11-12] MEDS ORDERED: LIDOCAINE 5% (PATCH) 1 EA PATCH TP PRN (06:00)
[2024-11-12] MEDS ORDERED: MAGNESIUM HYDROXIDE 30 ML UDC PO PRN (06:00)
[2024-11-12] MEDS ORDERED: IV NS 0.9% 1,000 ML IV SCH (06:00)
[2024-11-12] MEDS ORDERED: CYCLOBENZAPRINE 10 MG TABLET PO PRN (07:30)
[2024-11-12 07:45] LABS: CALCIUM, SERUM 8.2 mg/dL (8.5-10.1); CREATININE 0.7 mg/dL (0.6-1.3); POTASSIUM 3.6 mmol/L (3.5-5.1)
[2024-11-12 07:55] LABS: MAGNESIUM 1.7 mg/dL (1.8-2.4); PHOSPHORUS 3.5 mg/dL (2.5-4.9)
[2024-11-12] MEDS: IV NS 0.9% 1,000 ML IV SCH (08:00)
[2024-11-12] MEDS ORDERED: LISINOPRIL (20MG) 20 MG TABLET ONE (08:15)
[2024-11-12] MEDS ORDERED: AMLODIPINE BESYLATE 10 MG TABLET ONE (08:15)
[2024-11-12] MEDS: AMLODIPINE BESYLATE 10 MG TABLET PO SCH (08:26)
[2024-11-12] MEDS: LISINOPRIL (20MG) 20 MG TABLET PO SCH (08:26)
[2024-11-12 09:16] LABS: BASOPHILS % (AUTO) 0.4 % (0.0-2.0); EOSINOPHILS % (AUTO) 1.3 % (0.0-6.0); HEMATOCRIT 37 % (39-51); HEMOGLOBIN 12.3 g/dL (13.5-17.5); LYMPHOCYTES % (AUTO) 16.7 % (20.0-44.0); MEAN CORPUSCULAR HEMOGLOBIN 31 PG (26.0-33.0); MEAN CORPUSCULAR HGB CONC 34 g/dl (31.0-36.0); MEAN CORPUSCULAR VOLUME 91 fL (80-96); MONOCYTES % (AUTO) 10.2 % (2.0-12.0); NEUTROPHILS % (AUTO) 71.4 % (43.0-81.0); PLATELET COUNT (AUTO) 119 K/uL (150-450); RED BLOOD CELL COUNT(AUTO) 4.01 MIL/uL (4.5-6.0); RED CELL DISTRIBUTION WIDTH 14.5 % (11.5-15.0)
[2024-11-12 09:17] LABS: EOSINOPHILS # (AUTO) 0.1 K/uL (0.0-0.7); LYMPHOCYTES # (AUTO) 0.7 K/uL (0.8-4.8); MONOCYTES # (AUTO) 0.4 K/uL (0.1-1.30); NEUTROPHILS # (AUTO) 2.9 K/uL (1.8-8.9)
[2024-11-12] MEDS: SERTRALINE HCL 50 MG TABLET PO SCH (09:32)
[2024-11-12] MEDS: MAGNESIUM OXIDE 400 MG TABLET PO ONE (11:26)
[2024-11-12] MEDS: ACETAMINOPHEN 325 MG TABLET PO PRN (11:27)
[2024-11-12 12:00] VITALS: BP 174/84; TEMP 100; O2SAT 94
[2024-11-12] MEDS: KETOROLAC TROMETHAMINE INJ 30 MG/ML VIAL IV PRN (12:12)
[2024-11-12] MEDS: MAG HYDROX/AL HYDROX/SIMETH 30 ML UDC PO PRN (12:34)
[2024-11-12] MEDS: hydrALAZINE HCL 25 MG TABLET PO SCH (13:33)
[2024-11-12] MEDS: IV NS 0.9% 1,000 ML IV PRN (14:08)
[2024-11-12 16:00] VITALS: BP 132/93; TEMP 99.9; O2SAT 98
[2024-11-12 20:00] VITALS: BP 155/95; TEMP 99.7; O2SAT 98
[2024-11-12] MEDS: CEFTRIAXONE 1 G in IV D5W 50 ML IV SCH (20:27)
[2024-11-12] MEDS: QUETIAPINE FUMARATE 25 MG TABLET PO SCH (21:09)
[2024-11-12] MEDS: ONDANSETRON HCL/PF 4 MG/2 ML VIAL IVP PRN (22:23)
[2024-11-13] VITALS: BP 172/92; TEMP 98.8; O2SAT 98
[2024-11-13 08:00] VITALS: BP 175/96; TEMP 100; O2SAT 97
[2024-11-13 08:18] VITALS: BP 175/96; TEMP 100; O2SAT 95
[2024-11-13 09:45] VITALS: BP 156/89; TEMP 98.2
[2024-11-13 10:18] LABS: BASOPHILS % (AUTO) 0.4 % (0.0-2.0); EOSINOPHILS % (AUTO) 0.3 % (0.0-6.0); HEMATOCRIT 37 % (39-51); HEMOGLOBIN 12.2 g/dL (13.5-17.5); LYMPHOCYTES # (AUTO) 0.4 K/uL (0.8-4.8); LYMPHOCYTES % (AUTO) 10.7 % (20.0-44.0); MEAN CORPUSCULAR HEMOGLOBIN 30 PG (26.0-33.0); MEAN CORPUSCULAR HGB CONC 33 g/dl (31.0-36.0); MEAN CORPUSCULAR VOLUME 90 fL (80-96); MONOCYTES # (AUTO) 0.5 K/uL (0.1-1.30); MONOCYTES % (AUTO) 11.6 % (2.0-12.0); PLATELET COUNT (AUTO) 111 K/uL (150-450); RED CELL DISTRIBUTION WIDTH 14.1 % (11.5-15.0); WHITE BLOOD COUNT (AUTO) 3.9 K/uL (4.3-11.0)
[2024-11-13 10:28] LABS: CALCIUM, SERUM 8.7 mg/dL (8.5-10.1); CREATININE 0.7 mg/dL (0.6-1.3); MAGNESIUM 1.7 mg/dL (1.8-2.4); POTASSIUM 3.5 mmol/L (3.5-5.1)
[2024-11-13 12:47] LABS: ALBUMIN 2.9 g/dL (3.4-5.0); BILIRUBIN,DIRECT 0.1 mg/dL (0.0-0.2); BILIRUBIN,TOTAL 0.5 mg/dL (0.2-1.0)
[2024-11-13 16:00] VITALS: BP_SYST 158; BP_DIAS 88; BP_DIAS 89; TEMP 98.3; TEMP 98.9; O2SAT 100
[2024-11-13] MEDS: HYDROCODONE/APAP 5/325MG TABLET PO PRN (18:38)
[2024-11-13 20:00] VITALS: BP 136/85; TEMP 98.4; O2SAT 98
[2024-11-14 07:30] VITALS: BP 164/93; TEMP 98.4; O2SAT 96
[2024-11-14 07:49] LABS: CALCIUM, SERUM 9.3 mg/dL (8.5-10.1); CREATININE 0.7 mg/dL (0.6-1.3); MAGNESIUM 2.1 mg/dL (1.8-2.4); PHOSPHORUS 3.3 mg/dL (2.5-4.9); POTASSIUM 3.4 mmol/L (3.5-5.1)
[2024-11-14 07:54] LABS: BASOPHILS % (AUTO) 0.2 % (0.0-2.0); EOSINOPHILS % (AUTO) 0.6 % (0.0-6.0); HEMATOCRIT 39 % (39-51); HEMOGLOBIN 12.8 g/dL (13.5-17.5); LYMPHOCYTES # (AUTO) 0.7 K/uL (0.8-4.8); LYMPHOCYTES % (AUTO) 21.5 % (20.0-44.0); MEAN CORPUSCULAR HEMOGLOBIN 30 PG (26.0-33.0); MEAN CORPUSCULAR HGB CONC 33 g/dl (31.0-36.0); MEAN CORPUSCULAR VOLUME 91 fL (80-96); MONOCYTES # (AUTO) 0.5 K/uL (0.1-1.30); MONOCYTES % (AUTO) 17.1 % (2.0-12.0); NEUTROPHILS # (AUTO) 1.9 K/uL (1.8-8.9); NEUTROPHILS % (AUTO) 60.6 % (43.0-81.0); PLATELET COUNT (AUTO) 120 K/uL (150-450); RED BLOOD CELL COUNT(AUTO) 4.27 MIL/uL (4.5-6.0); RED CELL DISTRIBUTION WIDTH 13.9 % (11.5-15.0); WHITE BLOOD COUNT (AUTO) 3.1 K/uL (4.3-11.0)
[2024-11-14] MEDS: POTASSIUM CHLORIDE 20 MEQ TAB.PRT.SR PO SCH (10:30)
[2024-11-14 16:00] VITALS: BP 176/98; TEMP 98.6; O2SAT 95
[2024-11-14] MEDS: FAMOTIDINE (20 MG) 20 MG TABLET PO PRN (16:18)
[2024-11-14] MEDS: DAKINS QUARTER STRENGTH (0.125%) 480 ML BOTTLE TOP SCH (16:22)
[2024-11-14 20:00] VITALS: BP_SYST 151; BP_SYST 157; BP_DIAS 91; TEMP 99.1; TEMP 99.7; O2SAT 99
[2024-11-15 07:00] VITALS: BP 157/87; TEMP 98.6; O2SAT 98
[2024-11-15 16:00] VITALS: BP 166/95; O2SAT 98
[2024-11-15 18:47] LABS: BASOPHILS % (AUTO) 0.4 % (0.0-2.0); EOSINOPHILS % (AUTO) 1.6 % (0.0-6.0); HEMATOCRIT 42 % (39-51); LYMPHOCYTES % (AUTO) 36.8 % (20.0-44.0); MEAN CORPUSCULAR HEMOGLOBIN 30 PG (26.0-33.0); MEAN CORPUSCULAR HGB CONC 33 g/dl (31.0-36.0); MEAN CORPUSCULAR VOLUME 90 fL (80-96); MONOCYTES # (AUTO) 0.6 K/uL (0.1-1.30); MONOCYTES % (AUTO) 21.6 % (2.0-12.0); NEUTROPHILS # (AUTO) 1.1 K/uL (1.8-8.9); NEUTROPHILS % (AUTO) 39.6 % (43.0-81.0); PLATELET COUNT (AUTO) 139 K/uL (150-450); RED BLOOD CELL COUNT(AUTO) 4.65 MIL/uL (4.5-6.0); RED CELL DISTRIBUTION WIDTH 14.2 % (11.5-15.0); WHITE BLOOD COUNT (AUTO) 2.7 K/uL (4.3-11.0)
[2024-11-15 20:00] VITALS: BP 158/87; TEMP 99; O2SAT 96
[2024-11-15 20:12] LABS: CREATININE 0.8 mg/dL (0.6-1.3); MAGNESIUM 2.2 mg/dL (1.8-2.4); PHOSPHORUS 3.7 mg/dL (2.5-4.9); POTASSIUM 3.3 mmol/L (3.5-5.1)
[2024-11-15 23:53] LABS: ANISOCYTOSIS 1+; BASOPHILS % (MANUAL) 0 % (0.0-2.0); EOSINOPHILS % (MANUAL) 2 % (0-4); LYMPHOCYTES % (MANUAL) 30 % (16-48); MONOCYTES % (MANUAL) 22 % (0-11.0); NEUTROPHILS % (MANUAL) 46 (42-76); PLATELET ESTIMATE DECREASED
[2024-11-16 08:00] VITALS: BP 165/92; TEMP 98.2; O2SAT 99
[2024-11-16] MEDS ORDERED: SULF1TAB48 PO (11:27)
[2024-11-16 14:06] VITALS: BP 160/72
== END 2024-11-16 15:26 | disposition home or self-care (01) | DRG 383 ==
LOC: ER 22:13 → TRANSITION 11-12 06:35 → MED 11-12 10:32
PROVIDERS: ATTEND Student in an Organized Health Care Education/Training Program
PROC: 0JB90ZZ Excision of Buttock Subcutaneous Tissue and Fascia, Open Approach (ICD-10-PCS; principal; 2024-11-16)
DX: L03.317 Cellulitis of buttock (principal); D69.6 Thrombocytopenia, unspecified; E44.0 Moderate protein-calorie malnutrition; L98.411 Non-pressure chronic ulcer of buttock limited to breakdown of skin; S31.819A Unspecified open wound of right buttock, initial encounter; E83.42 Hypomagnesemia; D64.9 Anemia, unspecified; E87.6 Hypokalemia; F10.20 Alcohol dependence, uncomplicated; Z59.02 Unsheltered homelessness; Z88.8 Allergy status to other drugs, medicaments and biological substances; Z91.018 Allergy to other foods; Z79.899 Other long term (current) drug therapy; X58.XXXA Exposure to other specified factors, initial encounter; Y92.488 Other paved roadways as the place of occurrence of the external cause; K29.20 Alcoholic gastritis without bleeding; G89.29 Other chronic pain; R21 Rash and other nonspecific skin eruption; I10 Essential (primary) hypertension; Z91.81 History of falling; R11.0 Nausea; F32.A Depression, unspecified
CPT/HCPCS: 36415; 70450-TC; 74018; 80048-TC; 80076-TC; 81001; 83605-TC; 83690-TC; 83735-TC; 84100-TC; 85025-TC; 87081-TC; 87086-TC; A4223; A6403; G0378; J0696; J1885; J2405; J7030; J7060

== ENCOUNTER 2024-11-22 20:53 | Emergency (ER) | payer MEDICAID ==
[~2024-11-22] VITALS: Ht 182.9 cm; Wt 90.7 kg
[~2024-11-22 20:53] MED LIST changes: +SULF1TAB48 PO
[2024-11-22] MEDS: IV NS 0.9% 1,000 ML IV ONE (22:52)
[2024-11-23 05:46] VITALS: BP 124/92; TEMP 98.2; O2SAT 99
== END 2024-11-23 05:46 | disposition home or self-care (01) ==
LOC: ER 21:07
DX: F10.129 Alcohol abuse with intoxication, unspecified (principal); I10 Essential (primary) hypertension; Z79.899 Other long term (current) drug therapy; Z59.00 Homelessness unspecified; Y90.9 Presence of alcohol in blood, level not specified

== ENCOUNTER 2024-11-23 23:34 | Emergency (ER) | payer MEDICAID ==
[~2024-11-23] VITALS: Ht 182.9 cm; Wt 97.5 kg
[2024-11-23 23:37] VITALS: BP 140/85; TEMP 98.6; O2SAT 96
== END 2024-11-24 03:29 | disposition left against medical advice (07) ==
LOC: ER 23:56
DX: R10.9 Unspecified abdominal pain (principal); Z53.21 Procedure and treatment not carried out due to patient leaving prior to being seen by health care provider

== ENCOUNTER 2024-11-24 05:10 | Emergency (ER) | payer MEDICAID ==
[~2024-11-24] VITALS: Ht 182.9 cm; Wt 99.8 kg
[2024-11-24 05:13] VITALS: BP 134/81; TEMP 98.4; O2SAT 97
== END 2024-11-24 05:21 | disposition left against medical advice (07) ==
LOC: ER 05:14
DX: R10.9 Unspecified abdominal pain (principal); Z53.21 Procedure and treatment not carried out due to patient leaving prior to being seen by health care provider

== ENCOUNTER 2024-12-01 08:00 | Emergency (ER) | payer MEDICAID ==
[~2024-12-01] VITALS: Ht 182.9 cm; Wt 81.6 kg
[2024-12-01] MEDS: FAMOTIDINE/PF INJ 20 MG/2 ML VIAL IV ONE (09:30)
[2024-12-01 10:17] LABS: APPEARANCE,URINE CLEAR (CLEAR); BILIRUBIN,URINE NEGATIVE (NEGATIVE); BLOOD, URINE NEGATIVE Ery/uL (NEGATIVE); COLOR,URINE YELLOW (YELLOW); KETONES,URINE NEGATIVE (NEGATIVE); LEUKOCYTE ESTERASE ,URINE NEGATIVE (NEGATIVE); NITRITE, URINE NEGATIVE (NEGATIVE); PROTEIN,URINE NEGATIVE (NEGATIVE); UGLUCOSE NEGATIVE (NEGATIVE); UROBILINOGEN,URINE 0.2 EU/dL (0.2)
[2024-12-01 10:24] LABS: BASOPHILS % (AUTO) 0.7 % (0.0-2.0); EOSINOPHILS # (AUTO) 0.1 K/uL (0.0-0.7); EOSINOPHILS % (AUTO) 3.1 % (0.0-6.0); HEMATOCRIT 36 % (39-51); HEMOGLOBIN 11.8 g/dL (13.5-17.5); LYMPHOCYTES # (AUTO) 0.7 K/uL (0.8-4.8); MEAN CORPUSCULAR HEMOGLOBIN 32 PG (26.0-33.0); MEAN CORPUSCULAR HGB CONC 33 g/dl (31.0-36.0); MEAN CORPUSCULAR VOLUME 95 fL (80-96); MONOCYTES # (AUTO) 0.6 K/uL (0.1-1.30); MONOCYTES % (AUTO) 14.2 % (2.0-12.0); NEUTROPHILS # (AUTO) 2.9 K/uL (1.8-8.9); PLATELET COUNT (AUTO) 158 K/uL (150-450); RED BLOOD CELL COUNT(AUTO) 3.76 MIL/uL (4.5-6.0); RED CELL DISTRIBUTION WIDTH 16.8 % (11.5-15.0); WHITE BLOOD COUNT (AUTO) 4.4 K/uL (4.3-11.0)
[2024-12-01 10:28] LABS: AMPHETAMINE, URINE NEGATIVE (NEGATIVE); BARBITURATE, URINE NEGATIVE (NEGATIVE); BENZODIAZEPINE, URINE NEGATIVE (NEGATIVE); CANNABINOID, URINE NEGATIVE (NEGATIVE); COCCAINE, URINE NEGATIVE (NEGATIVE); OPIATE, URINE NEGATIVE (NEGATIVE); PHENCYCLIDINE SCREEN,URINE NEGATIVE (NEGATIVE)
[2024-12-01 10:35] LABS: ALBUMIN 3.5 g/dL (3.4-5.0); BILIRUBIN,DIRECT 0.2 mg/dL (0.0-0.2); BILIRUBIN,TOTAL 0.7 mg/dL (0.2-1.0); CALCIUM, SERUM 8.6 mg/dL (8.5-10.1); CREATININE 0.7 mg/dL (0.6-1.3); POTASSIUM 3.2 mmol/L (3.5-5.1); TOTAL PROTEIN, SERUM 7.5 g/dL (6.4-8.2)
[2024-12-01] MEDS ORDERED: ONDANSETRON HCL/PF 4 MG/2 ML VIAL ONE (10:48)
[2024-12-01] MEDS ORDERED: FAMOTIDINE/PF INJ 20 MG/2 ML VIAL IV ONE (10:48)
[2024-12-01] MEDS ORDERED: KETOROLAC TROMETHAMINE 15 MG/ML VIAL ONE (10:48)
[2024-12-01] MEDS: IV NS 0.9% 1,000 ML BAG IV ONE (13:00)
[2024-12-01] MEDS ORDERED: POTASSIUM CHLORIDE 20 MEQ TAB.PRT.SR PO ONE (13:44)
[2024-12-01] MEDS: ONDANSETRON HCL/PF 4 MG/2 ML VIAL IV ONE (13:45)
[2024-12-01] MEDS: KETOROLAC TROMETHAMINE 15 MG/ML VIAL IV ONE (13:45)
[2024-12-01] MEDS: POTASSIUM CHLORIDE 20 MEQ TAB.PRT.SR PO ONE (13:50)
[2024-12-01 16:10] VITALS: BP 135/89; TEMP 97.9; O2SAT 99
== END 2024-12-01 16:13 | disposition home or self-care (01) ==
LOC: ER 08:41
DX: M79.10 Myalgia, unspecified site (principal); R53.1 Weakness; R05.8 Other specified cough; R11.2 Nausea with vomiting, unspecified; R51.9 Headache, unspecified; R53.81 Other malaise; I10 Essential (primary) hypertension; Z59.00 Homelessness unspecified; Z79.899 Other long term (current) drug therapy; Z86.79 Personal history of other diseases of the circulatory system; Z91.018 Allergy to other foods; Z20.822 Contact with and (suspected) exposure to COVID-19
CPT/HCPCS: 99284; 96374; 96375; 71045; 96361; 87426; 87804 ×2; 85025; 80048; 83690; 80076; 36415; 80307; 81003; J1885; J3490; J2405; J7030

== ENCOUNTER 2025-01-03 22:39 | Emergency (ER) | payer MEDICAID ==
[~2025-01-03] VITALS: Ht 190.5 cm; Wt 99.8 kg
[2025-01-03] MEDS ORDERED: ONDANSETRON HCL/PF 4 MG/2 ML VIAL ONE (23:09)
[2025-01-03] MEDS ORDERED: FAMOTIDINE/PF INJ 20 MG/2 ML VIAL IV ONE (23:09)
[2025-01-03] MEDS: IV NS 0.9% 1,000 ML BAG IV ONE (23:14)
[2025-01-03] MEDS: FAMOTIDINE/PF INJ 20 MG/2 ML VIAL IV ONE (23:14)
[2025-01-03] MEDS: ONDANSETRON HCL/PF 4 MG/2 ML VIAL IVP ONE (23:14)
[2025-01-03 23:28] LABS: BASOPHILS # (AUTO) 0.1 K/uL (0.0-0.2); BASOPHILS % (AUTO) 1.7 % (0.0-2.0); EOSINOPHILS % (AUTO) 0.8 % (0.0-6.0); HEMATOCRIT 39 % (39-51); HEMOGLOBIN 12.8 g/dL (13.5-17.5); LYMPHOCYTES # (AUTO) 1.8 K/uL (0.8-4.8); LYMPHOCYTES % (AUTO) 39.9 % (20.0-44.0); MEAN CORPUSCULAR HEMOGLOBIN 31 PG (26.0-33.0); MEAN CORPUSCULAR HGB CONC 33 g/dl (31.0-36.0); MEAN CORPUSCULAR VOLUME 94 fL (80-96); MONOCYTES # (AUTO) 0.3 K/uL (0.1-1.30); MONOCYTES % (AUTO) 6.3 % (2.0-12.0); NEUTROPHILS # (AUTO) 2.3 K/uL (1.8-8.9); NEUTROPHILS % (AUTO) 51.3 % (43.0-81.0); PLATELET COUNT (AUTO) 207 K/uL (150-450); RED BLOOD CELL COUNT(AUTO) 4.15 MIL/uL (4.5-6.0); RED CELL DISTRIBUTION WIDTH 16.4 % (11.5-15.0); WHITE BLOOD COUNT (AUTO) 4.4 K/uL (4.3-11.0)
[2025-01-03 23:37] LABS: CALCIUM, SERUM 8.3 mg/dL (8.5-10.1); CARBON DIOXIDE 25 mmol/L (21-32); CHLORIDE 111 mmol/L (98-107); CREATININE 0.7 mg/dL (0.6-1.3); GLUCOSE 91 mg/dL (74-106); POTASSIUM 3.4 mmol/L (3.5-5.1); SODIUM SERUM 150 mmol/L (136-145); UREA NITROGEN, BLOOD 7 mg/dL (7-18)
[2025-01-03 23:43] LABS: ALANINE AMINOTRANSFERASE 53 U/L (12-78); ALBUMIN 3.7 g/dL (3.4-5.0); ALKALINE PHOSPHATASE 109 U/L (46-116); ASPARTATE AMINOTRANSFERASE 60 U/L (15-37); BILIRUBIN,DIRECT 0.1 mg/dL (0.0-0.2); BILIRUBIN,TOTAL 0.4 mg/dL (0.2-1.0); LIPASE 40 U/L (16-77); TOTAL PROTEIN, SERUM 7.1 g/dL (6.4-8.2)
[2025-01-04 01:14] VITALS: BP 157/82; TEMP 98.4; O2SAT 98
[2025-01-04] MEDS ORDERED: MAG HYDROX/AL HYDROX/SIMETH 30 ML UDC ONE (19:54)
== END 2025-01-04 02:02 | disposition home or self-care (01) ==
LOC: ER 22:46
DX: F10.129 Alcohol abuse with intoxication, unspecified (principal); I10 Essential (primary) hypertension; R11.0 Nausea; R10.13 Epigastric pain; Z79.899 Other long term (current) drug therapy; Z59.00 Homelessness unspecified; Y90.9 Presence of alcohol in blood, level not specified
CPT/HCPCS: 99285; 74176; 96374; 96361; 96375; 93005; 85025; 80048; 83690; 80076; 36415; 84484; J3490; J2405; J7030

== ENCOUNTER 2025-01-04 19:44 | Inpatient (IN) | payer MEDICAID ==
[~2025-01-04] VITALS: Ht 190.5 cm; Wt 96.2 kg
[2025-01-04] MEDS: MAG HYDROX/AL HYDROX/SIMETH 30 ML UDC PO ONE (19:58)
[2025-01-04] MEDS ORDERED: ONDANSETRON HCL/PF 4 MG/2 ML VIAL ONE (20:17)
[2025-01-04] MEDS ORDERED: FAMOTIDINE/PF INJ 20 MG/2 ML VIAL IV ONE (20:17)
[2025-01-04] MEDS: IV NS 0.9% 1,000 ML BAG IV ONE (20:22)
[2025-01-04 20:23] LABS: BASOPHILS % (AUTO) 0.6 % (0.0-2.0); EOSINOPHILS # (AUTO) 0.1 K/uL (0.0-0.7); EOSINOPHILS % (AUTO) 1.2 % (0.0-6.0); HEMATOCRIT 34 % (39-51); HEMOGLOBIN 11.3 g/dL (13.5-17.5); LYMPHOCYTES # (AUTO) 1.5 K/uL (0.8-4.8); LYMPHOCYTES % (AUTO) 32.5 % (20.0-44.0); MEAN CORPUSCULAR HEMOGLOBIN 31 PG (26.0-33.0); MEAN CORPUSCULAR HGB CONC 33 g/dl (31.0-36.0); MEAN CORPUSCULAR VOLUME 94 fL (80-96); MONOCYTES # (AUTO) 0.4 K/uL (0.1-1.30); MONOCYTES % (AUTO) 7.6 % (2.0-12.0); NEUTROPHILS # (AUTO) 2.7 K/uL (1.8-8.9); NEUTROPHILS % (AUTO) 58.1 % (43.0-81.0); PLATELET COUNT (AUTO) 188 K/uL (150-450); RED BLOOD CELL COUNT(AUTO) 3.59 MIL/uL (4.5-6.0); WHITE BLOOD COUNT (AUTO) 4.7 K/uL (4.3-11.0)
[2025-01-04] MEDS: ONDANSETRON HCL/PF 4 MG/2 ML VIAL IVP ONE (20:23)
[2025-01-04] MEDS: FAMOTIDINE/PF INJ 20 MG/2 ML VIAL IV ONE (20:23)
[2025-01-04 20:43] LABS: CALCIUM, SERUM 6.2 mg/dL (8.5-10.1); CREATININE 0.5 mg/dL (0.6-1.3)
[2025-01-04 20:47] LABS: POTASSIUM 2.5 mmol/L (3.5-5.1)
[2025-01-04 20:48] LABS: ALBUMIN 2.7 g/dL (3.4-5.0); BILIRUBIN,DIRECT 0.1 mg/dL (0.0-0.2); BILIRUBIN,TOTAL 0.3 mg/dL (0.2-1.0); TOTAL PROTEIN, SERUM 5.4 g/dL (6.4-8.2)
[2025-01-04] MEDS ORDERED: Magnesium 1GM/D5W 100ML PREMIX 100 ML IV ONE (21:04)
[2025-01-04] MEDS ORDERED: POTASSIUM CL. PREMIX PERIPHER. 50 ML ONE (21:04)
[2025-01-04] MEDS: POTASSIUM CL. PREMIX PERIPHER. 50 ML IV SCH (21:15)
[2025-01-04] MEDS: Magnesium 1GM/D5W 100ML PREMIX 100 ML IV SCH (21:15)
[2025-01-04] MEDS ORDERED: IV NS 0.9% 1,000 ML IV SCH (22:00)
[2025-01-04] MEDS ORDERED: ACETAMINOPHEN 325 MG TABLET PO PRN (22:00)
[2025-01-04] MEDS ORDERED: POTASSIUM CL. PREMIX PERIPHER. 100 ML ONE (22:00)
[2025-01-04] MEDS ORDERED: NAPROXEN 500 MG TABLET PO PRN (22:00)
[2025-01-04 22:40] LABS: LACTIC ACID 1.8 mmol/L (0.4-2.0)
[2025-01-05 06:26] LABS: BASOPHILS % (AUTO) 0.6 % (0.0-2.0); EOSINOPHILS # (AUTO) 0.1 K/uL (0.0-0.7); EOSINOPHILS % (AUTO) 2.5 % (0.0-6.0); HEMATOCRIT 39 % (39-51); HEMOGLOBIN 12.9 g/dL (13.5-17.5); LYMPHOCYTES # (AUTO) 1.5 K/uL (0.8-4.8); LYMPHOCYTES % (AUTO) 42.3 % (20.0-44.0); MEAN CORPUSCULAR HEMOGLOBIN 32 PG (26.0-33.0); MEAN CORPUSCULAR HGB CONC 33 g/dl (31.0-36.0); MEAN CORPUSCULAR VOLUME 97 fL (80-96); MONOCYTES # (AUTO) 0.3 K/uL (0.1-1.30); MONOCYTES % (AUTO) 7.8 % (2.0-12.0); NEUTROPHILS # (AUTO) 1.7 K/uL (1.8-8.9); NEUTROPHILS % (AUTO) 46.8 % (43.0-81.0); PLATELET COUNT (AUTO) 175 K/uL (150-450); RED BLOOD CELL COUNT(AUTO) 4.03 MIL/uL (4.5-6.0); RED CELL DISTRIBUTION WIDTH 16.5 % (11.5-15.0); WHITE BLOOD COUNT (AUTO) 3.5 K/uL (4.3-11.0)
[2025-01-05 06:33] LABS: BILIRUBIN,TOTAL 0.6 mg/dL (0.2-1.0); CALCIUM, SERUM 7.5 mg/dL (8.5-10.1); CREATININE 0.6 mg/dL (0.6-1.3); MAGNESIUM 2.1 mg/dL (1.8-2.4); PHOSPHORUS 3.7 mg/dL (2.5-4.9); POTASSIUM 3.6 mmol/L (3.5-5.1); TOTAL PROTEIN, SERUM 6.2 g/dL (6.4-8.2)
[2025-01-05] MEDS: POTASSIUM CHLORIDE 20 MEQ TAB.PRT.SR PO SCH (08:55)
[2025-01-05] MEDS: CHLORDIAZEPOXIDE HCL 25 MG CAPSULE PO SCH (08:55)
[2025-01-05] MEDS: HEPARIN SODIUM, PORCINE 5000 UNITS/1 ML VIAL SQ SCH (08:56)
[2025-01-05] MEDS: AMLODIPINE BESYLATE 10 MG TABLET PO SCH (08:57)
[2025-01-05] MEDS: hydrALAZINE HCL 25 MG TABLET PO SCH (08:57)
[2025-01-05] MEDS: LISINOPRIL (20MG) 20 MG TABLET PO SCH (08:57)
[2025-01-05] MEDS: IV NS 0.9% 1,000 ML IV PRN (08:58)
[2025-01-05] MEDS: SERTRALINE HCL 50 MG TABLET PO SCH (08:58)
[2025-01-05 09:35] VITALS: BP 176/96; TEMP 98.2; O2SAT 97
[2025-01-05] MEDS: MORPHINE SULFATE INJ 2 MG/ML DISP.SYRIN IV PRN (10:59)
[2025-01-05] MEDS: LORAZEPAM INJ 2 MG/ML VIAL IV PRN (11:53)
[2025-01-05] MEDS: ONDANSETRON HCL/PF 4 MG/2 ML VIAL IVP PRN (11:59)
[2025-01-05 12:00] VITALS: BP 165/93; TEMP 98.3; O2SAT 97
[2025-01-05 13:00] VITALS: BP 165/93; TEMP 98.3; O2SAT 97
[2025-01-05 17:00] VITALS: BP 157/99; TEMP 98.6; O2SAT 96
[2025-01-05] MEDS: hydrALAZINE HCL IV 20 MG VIAL IV PRN (20:25)
[2025-01-05 21:00] VITALS: BP 180/96; TEMP 98.6; O2SAT 97
[2025-01-05] MEDS: QUETIAPINE FUMARATE 25 MG TABLET PO SCH (22:15)
[2025-01-06] VITALS (8 sets, daily range): BP systolic 167–196; BP diastolic 89–98; TEMP 98.1–98.8; O2SAT 97–99
[2025-01-07 01:15] VITALS: BP 170/90; TEMP 98.8; O2SAT 99
[2025-01-07 05:06] VITALS: BP 146/84; TEMP 98.2; O2SAT 98
[2025-01-07 09:00] VITALS: BP 161/100; TEMP 98.1; O2SAT 98
[2025-01-07] MEDS: hydrALAZINE HCL 25 MG TABLET PO SCH (12:27)
[2025-01-07 13:00] VITALS: BP 150/77; TEMP 98.5; O2SAT 98
[2025-01-07 13:53] LABS: ALBUMIN 3.3 g/dL (3.4-5.0); BILIRUBIN,TOTAL 0.7 mg/dL (0.2-1.0); CALCIUM, SERUM 8.4 mg/dL (8.5-10.1); CREATININE 0.8 mg/dL (0.6-1.3); MAGNESIUM 1.9 mg/dL (1.8-2.4); PHOSPHORUS 3.1 mg/dL (2.5-4.9); POTASSIUM 3.5 mmol/L (3.5-5.1); TOTAL PROTEIN, SERUM 6.8 g/dL (6.4-8.2)
[2025-01-07 14:58] LABS: BASOPHILS % (AUTO) 0.2 % (0.0-2.0); EOSINOPHILS # (AUTO) 0.2 K/uL (0.0-0.7); EOSINOPHILS % (AUTO) 3.8 % (0.0-6.0); HEMATOCRIT 38 % (39-51); HEMOGLOBIN 12.6 g/dL (13.5-17.5); LYMPHOCYTES # (AUTO) 0.9 K/uL (0.8-4.8); LYMPHOCYTES % (AUTO) 15.8 % (20.0-44.0); MEAN CORPUSCULAR HEMOGLOBIN 31 PG (26.0-33.0); MEAN CORPUSCULAR HGB CONC 33 g/dl (31.0-36.0); MEAN CORPUSCULAR VOLUME 93 fL (80-96); MONOCYTES # (AUTO) 0.5 K/uL (0.1-1.30); NEUTROPHILS # (AUTO) 4.2 K/uL (1.8-8.9); NEUTROPHILS % (AUTO) 72.2 % (43.0-81.0); PLATELET COUNT (AUTO) 145 K/uL (150-450); RED BLOOD CELL COUNT(AUTO) 4.04 MIL/uL (4.5-6.0); RED CELL DISTRIBUTION WIDTH 16.2 % (11.5-15.0); WHITE BLOOD COUNT (AUTO) 5.8 K/uL (4.3-11.0)
[2025-01-07 17:00] VITALS: BP 142/88; TEMP 98.4; O2SAT 98
[2025-01-07 21:00] VITALS: BP 155/90; TEMP 98.4; O2SAT 97
[2025-01-08] VITALS (11 sets, daily range): BP systolic 134–166; BP diastolic 74–94; TEMP 98.2–98.8; O2SAT 97–100
[2025-01-08 06:38] LABS: CALCIUM, SERUM 8.9 mg/dL (8.5-10.1); CREATININE 0.8 mg/dL (0.6-1.3); MAGNESIUM 2.1 mg/dL (1.8-2.4); POTASSIUM 3.4 mmol/L (3.5-5.1)
[2025-01-08 06:40] LABS: BASOPHILS % (AUTO) 0.2 % (0.0-2.0); EOSINOPHILS # (AUTO) 0.2 K/uL (0.0-0.7); EOSINOPHILS % (AUTO) 5.1 % (0.0-6.0); HEMATOCRIT 37 % (39-51); HEMOGLOBIN 12.4 g/dL (13.5-17.5); LYMPHOCYTES % (AUTO) 22.2 % (20.0-44.0); MEAN CORPUSCULAR HEMOGLOBIN 32 PG (26.0-33.0); MEAN CORPUSCULAR HGB CONC 34 g/dl (31.0-36.0); MEAN CORPUSCULAR VOLUME 94 fL (80-96); MONOCYTES # (AUTO) 0.4 K/uL (0.1-1.30); MONOCYTES % (AUTO) 8.1 % (2.0-12.0); NEUTROPHILS % (AUTO) 64.4 % (43.0-81.0); PLATELET COUNT (AUTO) 130 K/uL (150-450); RED BLOOD CELL COUNT(AUTO) 3.93 MIL/uL (4.5-6.0); RED CELL DISTRIBUTION WIDTH 16.1 % (11.5-15.0); WHITE BLOOD COUNT (AUTO) 4.6 K/uL (4.3-11.0)
[2025-01-08] MEDS: POTASSIUM CHLORIDE 20 MEQ TAB.PRT.SR PO SCH (09:42)
[2025-01-09 04:00] VITALS: BP 147/85; TEMP 98.4; O2SAT 99
[2025-01-09 08:00] VITALS: BP 149/85; TEMP 98.2; O2SAT 95
[2025-01-09 12:07] LABS: BASOPHILS % (AUTO) 0.3 % (0.0-2.0); EOSINOPHILS # (AUTO) 0.2 K/uL (0.0-0.7); EOSINOPHILS % (AUTO) 2.2 % (0.0-6.0); HEMATOCRIT 40 % (39-51); HEMOGLOBIN 13.2 g/dL (13.5-17.5); LYMPHOCYTES % (AUTO) 13.7 % (20.0-44.0); MEAN CORPUSCULAR HEMOGLOBIN 32 PG (26.0-33.0); MEAN CORPUSCULAR HGB CONC 33 g/dl (31.0-36.0); MEAN CORPUSCULAR VOLUME 96 fL (80-96); MONOCYTES # (AUTO) 0.6 K/uL (0.1-1.30); MONOCYTES % (AUTO) 9.1 % (2.0-12.0); NEUTROPHILS # (AUTO) 5.2 K/uL (1.8-8.9); NEUTROPHILS % (AUTO) 74.7 % (43.0-81.0); PLATELET COUNT (AUTO) 147 K/uL (150-450); RED BLOOD CELL COUNT(AUTO) 4.16 MIL/uL (4.5-6.0); RED CELL DISTRIBUTION WIDTH 16.1 % (11.5-15.0)
[2025-01-09 12:15] LABS: CALCIUM, SERUM 9.5 mg/dL (8.5-10.1); CREATININE 0.7 mg/dL (0.6-1.3); POTASSIUM 3.8 mmol/L (3.5-5.1)
[2025-01-09 12:47] LABS: AMPHETAMINE, URINE NEGATIVE (NEGATIVE); BARBITURATE, URINE NEGATIVE (NEGATIVE); CANNABINOID, URINE NEGATIVE (NEGATIVE); COCCAINE, URINE NEGATIVE (NEGATIVE); PHENCYCLIDINE SCREEN,URINE NEGATIVE (NEGATIVE)
[2025-01-09 12:48] LABS: BENZODIAZEPINE, URINE POSITIVE (NEGATIVE); OPIATE, URINE POSITIVE (NEGATIVE)
[2025-01-09 16:31] LABS: APPEARANCE,URINE CLEAR (CLEAR); BILIRUBIN,URINE NEGATIVE (NEGATIVE); BLOOD, URINE NEGATIVE Ery/uL (NEGATIVE); COLOR,URINE YELLOW (YELLOW); KETONES,URINE NEGATIVE (NEGATIVE); LEUKOCYTE ESTERASE ,URINE NEGATIVE (NEGATIVE); NITRITE, URINE NEGATIVE (NEGATIVE); PROTEIN,URINE NEGATIVE (NEGATIVE); UGLUCOSE NEGATIVE (NEGATIVE)
[2025-01-09 17:00] VITALS: BP 146/87
[2025-01-09 17:00] LABS: ADD URINE CULTURE NO; BACTERIA,URINE Rare /HPF (None Seen); RBC,URINE 0-2 /HPF (0-2); SQUAMOUS EPITHELIAL CELL,UR None Seen /HPF (None Seen); URINE AMORPHOUS PHOSPHATES Moderate /HPF (None Seen); WBC,URINE NONE SEEN /HPF (0-3)
== END 2025-01-09 17:29 | DRG 422 ==
LOC: ER 19:46 → TELE1 01-05 07:46 → MEDSG1 01-06 11:25
PROVIDERS: ADMIT Internal Medicine
DX: E86.0 Dehydration (principal); G92.9 Unspecified toxic encephalopathy; E44.0 Moderate protein-calorie malnutrition; F33.3 Major depressive disorder, recurrent, severe with psychotic symptoms; M62.82 Rhabdomyolysis; E88.09 Other disorders of plasma-protein metabolism, not elsewhere classified; F10.129 Alcohol abuse with intoxication, unspecified; Y90.9 Presence of alcohol in blood, level not specified; Z20.822 Contact with and (suspected) exposure to COVID-19; Z59.00 Homelessness unspecified; I10 Essential (primary) hypertension; Z88.8 Allergy status to other drugs, medicaments and biological substances; Z91.018 Allergy to other foods; Z79.899 Other long term (current) drug therapy; E87.6 Hypokalemia; D64.9 Anemia, unspecified; F19.10 Other psychoactive substance abuse, uncomplicated
CPT/HCPCS: 36415; 80048-TC; 80053-TC; 80076-TC; 81001; 82550-TC; 82553; 83605-TC; 83690-TC; 83735-TC; 84100-TC; 84484-TC; 85025-TC; A4223; G0378; J0360; J1644; J2060; J2270; J2405; J3475; J3480; J3490; J7030

== ENCOUNTER 2025-01-21 11:04 | Inpatient (IN) | payer MEDICAID ==
[~2025-01-21] VITALS: Ht 185.4 cm; Wt 91.0 kg
[~2025-01-21 11:04] MED LIST changes: -SULF1TAB48 PO
[2025-01-21] MEDS ORDERED: METOCLOPRAMIDE HCL 10 MG/2 ML VIAL ONE (11:28)
[2025-01-21] MEDS ORDERED: FAMOTIDINE/PF INJ 20 MG/2 ML VIAL IV ONE (11:45)
[2025-01-21] MEDS: METOCLOPRAMIDE HCL 10 MG/2 ML VIAL IM ONE (11:54)
[2025-01-21] MEDS: IV NS 0.9% 1,000 ML BAG IV ONE (11:54)
[2025-01-21 11:55] LABS: BASOPHILS % (AUTO) 0.3 % (0.0-2.0); EOSINOPHILS % (AUTO) 0.2 % (0.0-6.0); HEMATOCRIT 45 % (39-51); HEMOGLOBIN 15.1 g/dL (13.5-17.5); LYMPHOCYTES % (AUTO) 7.8 % (20.0-44.0); MEAN CORPUSCULAR HEMOGLOBIN 31 PG (26.0-33.0); MEAN CORPUSCULAR HGB CONC 34 g/dl (31.0-36.0); MEAN CORPUSCULAR VOLUME 93 fL (80-96); MONOCYTES # (AUTO) 0.7 K/uL (0.1-1.30); MONOCYTES % (AUTO) 5.6 % (2.0-12.0); NEUTROPHILS # (AUTO) 10.7 K/uL (1.8-8.9); NEUTROPHILS % (AUTO) 86.1 % (43.0-81.0); PLATELET COUNT (AUTO) 457 K/uL (150-450); RED BLOOD CELL COUNT(AUTO) 4.83 MIL/uL (4.5-6.0); RED CELL DISTRIBUTION WIDTH 16.7 % (11.5-15.0); WHITE BLOOD COUNT (AUTO) 12.5 K/uL (4.3-11.0)
[2025-01-21] MEDS: FAMOTIDINE/PF INJ 20 MG/2 ML VIAL IV ONE (11:55)
[2025-01-21 12:15] LABS: ALANINE AMINOTRANSFERASE 47 U/L (12-78); ALBUMIN 4.4 g/dL (3.4-5.0); ALKALINE PHOSPHATASE 132 U/L (46-116); ASPARTATE AMINOTRANSFERASE 32 U/L (15-37); BILIRUBIN,DIRECT 0.2 mg/dL (0.0-0.2); BILIRUBIN,TOTAL 0.9 mg/dL (0.2-1.0); CALCIUM, SERUM 10.2 mg/dL (8.5-10.1); CARBON DIOXIDE 24 mmol/L (21-32); CHLORIDE 104 mmol/L (98-107); CREATININE 1.1 mg/dL (0.6-1.3); LIPASE 21 U/L (16-77); POTASSIUM 3.5 mmol/L (3.5-5.1); SODIUM SERUM 140 mmol/L (136-145); TOTAL PROTEIN, SERUM 9.3 g/dL (6.4-8.2); UREA NITROGEN, BLOOD 19 mg/dL (7-18)
[2025-01-21 12:20] LABS: GLUCOSE 107 mg/dL (74-106)
[2025-01-21] MEDS ORDERED: IOHEXOL-300 100 ML VIAL IV ONE (12:44)
[2025-01-21] MEDS ORDERED: CT SWABBABLE VALVE TRANS SET 1 EA INFUS.SET MC ONE (12:44)
[2025-01-21] MEDS ORDERED: IV NS 0.9% 250 ML IV ONE (12:44)
[2025-01-21 13:56] LABS: AMPHETAMINE, URINE NEGATIVE (NEGATIVE); BARBITURATE, URINE NEGATIVE (NEGATIVE); CANNABINOID, URINE NEGATIVE (NEGATIVE); COCCAINE, URINE NEGATIVE (NEGATIVE); OPIATE, URINE NEGATIVE (NEGATIVE); PHENCYCLIDINE SCREEN,URINE NEGATIVE (NEGATIVE)
[2025-01-21 13:57] LABS: BENZODIAZEPINE, URINE POSITIVE (NEGATIVE)
[2025-01-21] MEDS ORDERED: PIPERACI/TAZO 3.375GM/D5W 50ML PB IV ONE (14:11)
[2025-01-21] MEDS: PIPERACILLIN /TAZOBACTAM 3.375 G in IV D5W 50 ML IV ONE (14:32)
[2025-01-21] MEDS: POTASSIUM CHLORIDE 20 MEQ TAB.PRT.SR PO ONE (15:21)
[2025-01-21] MEDS ORDERED: ASPIRIN 81 MG TAB.CHEW ONE (15:36)
[2025-01-21] MEDS: ASPIRIN 81 MG TAB.CHEW PO ONE (15:37)
[2025-01-21] MEDS ORDERED: CLON0.1T PO (15:55)
[2025-01-21] MEDS ORDERED: SERT100T12 PO (15:55)
[2025-01-21] MEDS ORDERED: QUET50TA PO (15:55)
[2025-01-21] MEDS ORDERED: FAMO20TA8 PO (15:56)
[2025-01-21] MEDS ORDERED: ONDANSETRON HCL/PF 4 MG/2 ML VIAL IVP PRN (17:30)
[2025-01-21] MEDS ORDERED: MAGNESIUM HYDROXIDE 30 ML UDC PO PRN (17:30)
[2025-01-21] MEDS ORDERED: Z GUARD REMEDY 4 OZ OINT TP PRN (17:30)
[2025-01-21] MEDS ORDERED: ZOLPIDEM TARTRATE 5 MG TABLET PO PRN (17:30)
[2025-01-21] MEDS ORDERED: ACETAMINOPHEN 325 MG TABLET PO PRN (17:30)
[2025-01-21] MEDS ORDERED: MAG HYDROX/AL HYDROX/SIMETH 30 ML UDC PO PRN (17:30)
[2025-01-21] MEDS ORDERED: CLONIDINE HCL 0.1 MG TABLET PO PRN (18:30)
[2025-01-21] MEDS: IV D5/0.45 NACL 1,000 ML IV PRN (20:27)
[2025-01-21] MEDS: QUETIAPINE FUMARATE 100 MG TABLET PO SCH (21:21)
[2025-01-21] MEDS: MORPHINE SULFATE INJ 2 MG/ML DISP.SYRIN IV PRN (21:22)
[2025-01-21] MEDS: ENOXAPARIN SODIUM 40 MG/0.4 ML DISP.SYRIN SQ SCH (21:24)
[2025-01-22 07:06] LABS: BASOPHILS % (AUTO) 0.5 % (0.0-2.0); EOSINOPHILS # (AUTO) 0.1 K/uL (0.0-0.7); HEMATOCRIT 39 % (39-51); HEMOGLOBIN 12.8 g/dL (13.5-17.5); LYMPHOCYTES # (AUTO) 0.9 K/uL (0.8-4.8); LYMPHOCYTES % (AUTO) 9.9 % (20.0-44.0); MEAN CORPUSCULAR HEMOGLOBIN 31 PG (26.0-33.0); MEAN CORPUSCULAR HGB CONC 33 g/dl (31.0-36.0); MEAN CORPUSCULAR VOLUME 93 fL (80-96); MONOCYTES % (AUTO) 11.6 % (2.0-12.0); NEUTROPHILS # (AUTO) 6.7 K/uL (1.8-8.9); PLATELET COUNT (AUTO) 344 K/uL (150-450); RED CELL DISTRIBUTION WIDTH 16.3 % (11.5-15.0); WHITE BLOOD COUNT (AUTO) 8.7 K/uL (4.3-11.0)
[2025-01-22 07:21] LABS: CREATININE 0.9 mg/dL (0.6-1.3); MAGNESIUM 2.4 mg/dL (1.8-2.4); PHOSPHORUS 3.3 mg/dL (2.5-4.9); POTASSIUM 3.2 mmol/L (3.5-5.1)
[2025-01-22 07:47] LABS: THYROID STIMULATING HORMONE 0.67 uIU/mL (0.358-3.74)
[2025-01-22 08:00] VITALS: BP 137/81; TEMP 98.1; O2SAT 97
[2025-01-22] MEDS: AMLODIPINE BESYLATE 10 MG TABLET PO SCH (08:51)
[2025-01-22] MEDS: SERTRALINE HCL 50 MG TABLET PO SCH (08:51)
[2025-01-22] MEDS: PANTOPRAZOLE 40 MG VIAL IV SCH (08:51)
[2025-01-22] MEDS: POTASSIUM CHLORIDE 20 MEQ TAB.PRT.SR PO SCH (09:47)
[2025-01-22 16:00] VITALS: BP 143/93; TEMP 99.1; O2SAT 98
[2025-01-22] MEDS ORDERED: PIPERACI/TAZO 3.375GM/D5W 50ML PB IV ONE (22:44)
[2025-01-22] MEDS: ZOSYN IVPB 3.375 G in IV D5W 50ml IV SCH (22:48)
[2025-01-23] VITALS: BP 145/98; TEMP 99; O2SAT 98
[2025-01-23] MEDS ORDERED: PIPERACILLIN /TAZOBACTAM 3.375 G in IV D5W 50 ML IV SCH
[2025-01-23] MEDS ORDERED: PIPERACI/TAZO 3.375GM/D5W 50ML PB IV ONE (05:11)
[2025-01-23 08:00] VITALS: BP 153/91; TEMP 98.2; O2SAT 99
[2025-01-23 08:10] LABS: RAPID PLASMA REAGIN QUAL. Non Reactive (Non Reactive)
[2025-01-23 08:34] LABS: BASOPHILS # (AUTO) 0.1 K/uL (0.0-0.2); BASOPHILS % (AUTO) 0.8 % (0.0-2.0); EOSINOPHILS # (AUTO) 0.2 K/uL (0.0-0.7); EOSINOPHILS % (AUTO) 3.3 % (0.0-6.0); HEMATOCRIT 39 % (39-51); HEMOGLOBIN 12.4 g/dL (13.5-17.5); LYMPHOCYTES # (AUTO) 1.4 K/uL (0.8-4.8); LYMPHOCYTES % (AUTO) 21.8 % (20.0-44.0); MEAN CORPUSCULAR HEMOGLOBIN 31 PG (26.0-33.0); MEAN CORPUSCULAR HGB CONC 32 g/dl (31.0-36.0); MEAN CORPUSCULAR VOLUME 95 fL (80-96); MONOCYTES # (AUTO) 0.7 K/uL (0.1-1.30); MONOCYTES % (AUTO) 10.3 % (2.0-12.0); NEUTROPHILS # (AUTO) 4.2 K/uL (1.8-8.9); NEUTROPHILS % (AUTO) 63.8 % (43.0-81.0); PLATELET COUNT (AUTO) 304 K/uL (150-450); RED BLOOD CELL COUNT(AUTO) 4.07 MIL/uL (4.5-6.0); RED CELL DISTRIBUTION WIDTH 15.8 % (11.5-15.0); WHITE BLOOD COUNT (AUTO) 6.6 K/uL (4.3-11.0)
[2025-01-23 09:38] LABS: CALCIUM, SERUM 8.3 mg/dL (8.5-10.1); CREATININE 0.7 mg/dL (0.6-1.3); PHOSPHORUS 4.3 mg/dL (2.5-4.9); POTASSIUM 4.4 mmol/L (3.5-5.1)
[2025-01-23 11:40] VITALS: BP 158/92
[2025-01-23] MEDS: PIPERACILLIN /TAZOBACTAM 3.375 G in IV D5W 100 ML IV SCH (11:40)
[2025-01-23 12:09] LABS: HIV-1 p24 ANTIGEN NON REACTIVE (NONREACTIVE); HIV-1/2 ANTIBODY NON REACTIVE (NONREACTIVE)
[2025-01-23 16:00] VITALS: BP 145/87; TEMP 98; O2SAT 98
[2025-01-23 20:00] VITALS: BP 146/91; TEMP 98.4; O2SAT 95
[2025-01-24 04:00] VITALS: BP 140/88; TEMP 98.6; O2SAT 95
[2025-01-24 07:46] LABS: BASOPHILS % (AUTO) 0.4 % (0.0-2.0); EOSINOPHILS # (AUTO) 0.2 K/uL (0.0-0.7); EOSINOPHILS % (AUTO) 3.4 % (0.0-6.0); HEMATOCRIT 40 % (39-51); HEMOGLOBIN 13.1 g/dL (13.5-17.5); LYMPHOCYTES # (AUTO) 0.9 K/uL (0.8-4.8); LYMPHOCYTES % (AUTO) 14.3 % (20.0-44.0); MEAN CORPUSCULAR HEMOGLOBIN 30 PG (26.0-33.0); MEAN CORPUSCULAR HGB CONC 33 g/dl (31.0-36.0); MEAN CORPUSCULAR VOLUME 93 fL (80-96); MONOCYTES # (AUTO) 0.8 K/uL (0.1-1.30); MONOCYTES % (AUTO) 12.3 % (2.0-12.0); NEUTROPHILS # (AUTO) 4.5 K/uL (1.8-8.9); NEUTROPHILS % (AUTO) 69.6 % (43.0-81.0); PLATELET COUNT (AUTO) 360 K/uL (150-450); RED BLOOD CELL COUNT(AUTO) 4.31 MIL/uL (4.5-6.0); RED CELL DISTRIBUTION WIDTH 15.8 % (11.5-15.0); WHITE BLOOD COUNT (AUTO) 6.4 K/uL (4.3-11.0)
[2025-01-24 08:00] VITALS: BP 141/90; TEMP 98.1; O2SAT 95
[2025-01-24 08:18] LABS: CALCIUM, SERUM 8.7 mg/dL (8.5-10.1); CREATININE 0.7 mg/dL (0.6-1.3); MAGNESIUM 1.9 mg/dL (1.8-2.4); PHOSPHORUS 3.5 mg/dL (2.5-4.9); POTASSIUM 3.8 mmol/L (3.5-5.1)
[2025-01-24] MEDS: PANTOPRAZOLE 40 MG TABLET.DR PO SCH (09:32)
[2025-01-24] MEDS ORDERED: QUETIAPINE FUMARATE 100 MG TABLET PO PRN (14:00)
[2025-01-24] MEDS: MORPHINE SULFATE INJ 2 MG/ML DISP.SYRIN IV STA (14:00)
[2025-01-24] MEDS: QUETIAPINE FUMARATE 100 MG TABLET PO PRN (15:28)
[2025-01-24 16:00] VITALS: BP 142/94; TEMP 98.1; O2SAT 98
[2025-01-24 20:00] VITALS: BP 121/75; TEMP 98.1; O2SAT 97
[2025-01-25 04:00] VITALS: BP 114/88; TEMP 97.3; O2SAT 100
[2025-01-25 07:36] LABS: BASOPHILS % (AUTO) 0.7 % (0.0-2.0); EOSINOPHILS # (AUTO) 0.3 K/uL (0.0-0.7); EOSINOPHILS % (AUTO) 4.3 % (0.0-6.0); HEMATOCRIT 39 % (39-51); HEMOGLOBIN 12.8 g/dL (13.5-17.5); LYMPHOCYTES # (AUTO) 1.2 K/uL (0.8-4.8); MEAN CORPUSCULAR HEMOGLOBIN 31 PG (26.0-33.0); MEAN CORPUSCULAR HGB CONC 33 g/dl (31.0-36.0); MEAN CORPUSCULAR VOLUME 93 fL (80-96); MONOCYTES # (AUTO) 0.7 K/uL (0.1-1.30); MONOCYTES % (AUTO) 10.4 % (2.0-12.0); NEUTROPHILS # (AUTO) 4.2 K/uL (1.8-8.9); NEUTROPHILS % (AUTO) 65.6 % (43.0-81.0); PLATELET COUNT (AUTO) 358 K/uL (150-450); RED BLOOD CELL COUNT(AUTO) 4.16 MIL/uL (4.5-6.0); RED CELL DISTRIBUTION WIDTH 15.9 % (11.5-15.0); WHITE BLOOD COUNT (AUTO) 6.4 K/uL (4.3-11.0)
[2025-01-25 07:38] LABS: CREATININE 0.7 mg/dL (0.6-1.3); PHOSPHORUS 3.6 mg/dL (2.5-4.9); POTASSIUM 3.8 mmol/L (3.5-5.1)
[2025-01-25 08:32] VITALS: BP 131/82; TEMP 97.6; O2SAT 95
[2025-01-25] MEDS ORDERED: HYDROCODONE/APAP 10/325MG TABLET PO PRN (13:00)
[2025-01-25 16:17] VITALS: BP 125/89; TEMP 97.8; O2SAT 98
[2025-01-25 20:00] VITALS: BP 126/72; TEMP 98.2; O2SAT 97
[2025-01-26 04:00] VITALS: BP 121/76; TEMP 98.2; O2SAT 97
[2025-01-26 08:00] VITALS: BP 124/74; TEMP 98.5; O2SAT 98
[2025-01-26 08:47] VITALS: BP 121/76; TEMP 97.8; O2SAT 97
[2025-01-26 09:10] VITALS: BP 124/72
[2025-01-26] MEDS ORDERED: HYDR-3980 PO (09:58)
[2025-01-26] MEDS ORDERED: AMOX-430 PO (09:58)
== END 2025-01-26 11:05 | disposition home or self-care (01) | DRG 249 ==
LOC: ER 11:20 → TELE1 17:04 → MEDSG1 01-22 09:18
PROVIDERS: ADMIT Student in an Organized Health Care Education/Training Program; ATTEND Nurse Practitioner Family
PROC: 0H99XZZ Drainage of Perineum Skin, External Approach (ICD-10-PCS; principal; 2025-01-24)
DX: A09 Infectious gastroenteritis and colitis, unspecified (principal); E46 Unspecified protein-calorie malnutrition; K61.0 Anal abscess; L02.215 Cutaneous abscess of perineum; D75.839 Thrombocytosis, unspecified; L02.31 Cutaneous abscess of buttock; N49.2 Inflammatory disorders of scrotum; Z59.00 Homelessness unspecified; Z88.8 Allergy status to other drugs, medicaments and biological substances; Z91.018 Allergy to other foods; Z79.899 Other long term (current) drug therapy; I10 Essential (primary) hypertension; D64.9 Anemia, unspecified; F32.A Depression, unspecified; E66.9 Obesity, unspecified; Z68.26 Body mass index [BMI] 26.0-26.9, adult; E87.6 Hypokalemia; L03.315 Cellulitis of perineum; R94.31 Abnormal electrocardiogram [ECG] [EKG]
CPT/HCPCS: 36415; 76870-TC; 80048-TC; 80076-TC; 83690-TC; 83735-TC; 84100-TC; 84443-TC; 84484-TC; 85025-TC; 86592; 86593; 87806; 93307-TC; A4223; G0378; G0480; J1650; J2270; J2470; J2543; J2765; J3490; J7030; J7042; J7050; J7060; Q9967

== ENCOUNTER 2025-02-20 01:04 | Emergency (ER) | payer MEDICAID, OTHER ==
[~2025-02-20] VITALS: Ht 185.4 cm; Wt 90.7 kg
[~2025-02-20 01:04] MED LIST changes: -ACET-2605 PO; +AMOX-430 PO; +CLON0.1T PO; -CYCL5TAB PO; -FAMO-131 PO; +FAMO20TA8 PO; +HYDR-3980 PO; -HYDR-4076 PO; -LIDO30AD10 TP; -LISI20TA30 PO; -NAPR-1009 PO; -ONDA4TAB5 PO; +QUET50TA PO; -Quetiapine Fumarate PO; +SERT100T12 PO; -SERT50TA PO
[2025-02-20] MEDS: ONDANSETRON HCL/PF 4 MG/2 ML VIAL IVP ONE (01:30)
[2025-02-20] MEDS: IV NS 0.9% 1,000 ML BAG IV ONE (02:00)
[2025-02-20] MEDS: FAMOTIDINE/PF INJ 20 MG/2 ML VIAL IV ONE (02:00)
[2025-02-20 02:53] VITALS: BP 151/94; TEMP 98.3; O2SAT 98
[2025-02-20] MEDS: MAG HYDROX/AL HYDROX/SIMETH 30 ML UDC PO ONE (02:57)
== END 2025-02-20 02:55 | disposition home or self-care (01) ==
LOC: ER 01:05
DX: F10.10 Alcohol abuse, uncomplicated (principal); I10 Essential (primary) hypertension; Z59.00 Homelessness unspecified; Z79.899 Other long term (current) drug therapy; Z88.8 Allergy status to other drugs, medicaments and biological substances; Z91.018 Allergy to other foods; Y90.9 Presence of alcohol in blood, level not specified

== ENCOUNTER 2025-05-08 00:40 | Emergency (ER) | payer OTHER ==
[~2025-05-08] VITALS: Ht 185.4 cm; Wt 90.3 kg
[2025-05-08 05:02] VITALS: BP 140/90; TEMP 98.6; O2SAT 98
== END 2025-05-08 05:06 | disposition left against medical advice (07) ==
LOC: ER 00:43
DX: R10.9 Unspecified abdominal pain (principal); Z53.21 Procedure and treatment not carried out due to patient leaving prior to being seen by health care provider

== ENCOUNTER 2025-08-30 03:04 | Emergency (ER) | payer OTHER ==
[~2025-08-30] VITALS: Ht 177.8 cm; Wt 77.1 kg
[2025-08-30 03:13] VITALS: BP 139/91; TEMP 98
[2025-08-30] MEDS ORDERED: IBUPROFEN 200 MG TABLET ONE (03:30)
[2025-08-30] MEDS ORDERED: IBUPROFEN 600 MG TABLET ONE (03:30)
[2025-08-30] MEDS ORDERED: ONDANSETRON 4 MG TAB.RAPDIS ONE (03:30)
[2025-08-30] MEDS: IBUPROFEN 400 MG TABLET PO ONE (03:31)
[2025-08-30] MEDS: ONDANSETRON 4 MG TAB.RAPDIS SL ONE (03:31)
[2025-08-30 03:39] VITALS: O2SAT 98
== END 2025-08-30 03:40 | disposition home or self-care (01) ==
LOC: ER 03:08
DX: J11.1 Influenza due to unidentified influenza virus with other respiratory manifestations (principal); I11.9 Hypertensive heart disease without heart failure; R11.0 Nausea; Z59.00 Homelessness unspecified
CPT/HCPCS: Q0162